=== PATIENT | male | born 1980 | race Caucasian/White ===

== ENCOUNTER 2017-10-31 15:07 | Inpatient (IN) | payer OTHER ==
[2017-10-31] MEDS ORDERED: HALOPERIDOL LACT 5 MG/ML INJ IM ONE (15:42)
[2017-10-31] MEDS ORDERED: LORazepam 2 MG/ML INJ IVP ONE (15:42)
--- NOTE | 2017-10-31 16:03 | EDPHY ---
H & P Stated Complaint: MED EVAL/FAMILY FEELS PSYCH MEDS NOT WORKING/GLORIA Source: Patient, Family - Personal History Current Tetanus/Diphtheria Vaccine: Unsure - Medical/Surgical History Hx Asthma: No Hx Chronic Respiratory Disease: No Hx Diabetes: No Hx Cardiac Disease: No Hx Renal Disease: No Hx Cirrhosis: No Hx Alcoholism: No Hx HIV/AIDS: No Hx Splenectomy or Spleen Trauma: No Other PMH: BIPOLAR - Family History Significant Family History: No pertinent family hx - Social History Smoking Status: Never smoked Alcohol Use: Sober Drug Use: None Time Seen by Provider: 10/31/17 15:34 HPI/ROS: CHIEF COMPLAINT: Psychosis HISTORY OF PRESENT ILLNESS: Patient is a 36-year-old man whose mom and sister in law brought him into the ER under false pretenses. They told him they were going to eat. The patient has a history of bipolar and they report that he has been manic since May. He was asking his if they were under surveillance. His felt unsafe and left him and took the kids. She has since filed for divorce. The patient has not been going on visits to see the kids lately and the called his family. They have been checking on him. Mom states that he was very angry a few days ago at tore door off its hinges and began shaking it. Ppziuc-cu-ggo states that she went over last night and that he kept peaking through the windows and the door but would not acknowledge her or talk to her. They do not think that he is taking his medications although his medications have been refilled. He has not been eating. Today they gave him something to eat if he came with them and then they brought him to the ER. Here he kept asking to leave and was posturing with security. REVIEW OF SYSTEMS: Unable to obtain secondary to condition EXAM: GENERAL: well-nourished and in moderate distress. HEAD: Atraumatic, normocephalic. EYES: Pupils equal round and reactive to light, extraocular movements intact, sclera anicteric, conjunctiva are normal. ENT: Moist mucous membranes. NECK: Normal range of motion, supple. LUNGS: Breath sounds clear to auscultation. No wheezes rales or rhonchi. HEART: Regular rate and rhythm. ABDOMEN: Soft, nontender, normoactive bowel sounds. No guarding, no rebound. No masses appreciated. BACK: No CVA tenderness, no spinal tenderness, step-offs or deformities EXTREMITIES: Normal range of motion, no pitting or edema. No clubbing or cyanosis. NEUROLOGICAL: Cranial nerves II through XII grossly intact. Normal speech, normal gait. 5/5 strength, normal movement in all extremities, normal sensation PSYCH: Angry, aggressive, paranoid see above SKIN: Warm, dry, normal turgor, no visible rashes or lesions. (Antonio Sanchez) Constitutional: Initial Vital Signs Temperature (C) 36.4 C 10/31/17 15:14 Heart Rate 95 10/31/17 15:14 Respiratory Rate 20 10/31/17 15:14 O2 Sat (%) 94 10/31/17 15:14 O2 Delivery Mode Room Air Allergies/Adverse Reactions: No Known Allergies Allergy (Unverified 10/31/17 15:09) Home Medications: Medication Instructions Recorded Gabapentin [Neurontin 100 MG (*)] 100 mg PO TID 11/01/17 Levothyroxine [Synthroid 50 mcg 50 mcg PO DAILY06 11/01/17 (*)] [place] Carbonate [[place] 600 mg PO TID 11/01/17 Carbonate 600 mg cap (*)] Methylphenidate HCl [Ritalin 20mg 20 mg PO QID 11/01/17 (*)] QUEtiapine FUMARATE [Seroquel 50 50 mg PO DAILY 11/01/17 mg (*)] lamoTRIgine [Lamotrigine] 200 mg PO DAILY 11/01/17 Medical Decision Making ED Course/Re-evaluation: 0123AM; patient accepted by Dr. Whitt at [address] [place] [address]. EMTALA filled out. Appropriate transfer will be set up. (Corey Abdalla) 7:00 p.m. the patient is medically cleared. We are awaiting psychiatric evaluation. (Antonio Sanchez) Differential Diagnosis: Partial list of the Differential diagnosis considered include but were not limited to; bipolar, manic, schizoaffective, substance abuse and although unlikely based on the history and physical exam, I also considered head injury, infection. (Antonio Sanchez) - Data Points Laboratory Results: Laboratory Results 10/31/17 16:22 10/31/17 16:22 10/31/17 10/31/17 16:32 16:30 Hemoglobin A1c 5.0 % % (4.0-6.0) Estim Average Glucose 97 mg/dL mg/dL (68-126) AST 37 IU/L IU/L (17-59) ALT 49 IU/L IU/L (21-72) Triglycerides 120 mg/dL mg/dL (40-150) Cholesterol 193 mg/dL mg/dL (140-200) Cholesterol Risk Factr 0.8 (0.2-1.0) LDL Cholesterol, Calc 124 mg/dL H mg/dL (70-100) LDL Risk Factor 1.0 (0.2-1.0) VLDL Cholesterol 24 mg/dL mg/dL (8-25) Non-HDL Cholesterol 148 mg/dL H mg/dL (90-129) HDL Cholesterol 45 mg/dL mg/dL (40-65) LDL/HDL Ratio 2.76 RATIO RATIO (1.00-3.64) Cholesterol/HDL Ratio 4.29 RATIO RATIO (1.00-4.97) TSH 1.250 uIU/mL uIU/mL (0.465-4.680) [place] 0.2 mEq/L L mEq/L (0.6-1.2) Medications Given: Levothyroxine Sodium (Synthroid) 50 mcg PO DAILY06 SUZETTE Stop: 04/30/18 13:29 Last Admin: 11/01/17 14:29 Dose: Not Given Discontinued Medications Haloperidol Lactate (Haldol Injection) 10 mg IM EDNOW ONE Stop: 10/31/17 15:43 Last Admin: 10/31/17 19:03 Dose: Not Given Lorazepam (Ativan Injection) 2 mg IVP EDNOW ONE Stop: 10/31/17 15:43 Last Admin: 10/31/17 19:03 Dose: Not Given Lorazepam (Ativan) 1 mg PO ONCE ONE Stop: 10/31/17 23:00 Last Admin: 10/31/17 23:15 Dose: 1 mg Departure - Departure Disposition: [facility] IP Clinical Impression: Bipolar disorder Qualifiers: Active/Remission status: currently active Current bipolar episode type: manic Current episode severity: severe Psychotic features: with psychotic features Qualified Code(s): F31.2 - Bipolar disorder, current episode manic severe with psychotic features Condition: Fair
[2017-10-31 16:32] LABS: PLATELET COUNT 295 10^3/uL (150-400)
[2017-10-31] MEDS ORDERED: LORazepam 1 MG TAB PO ONE (22:59)
[2017-11-01] MEDS ORDERED: NICOTINE POLACRILEX 2 MG GUM B PRN (02:38)
[2017-11-01] MEDS ORDERED: MAGNESIUM HYDROXIDE 30 ML UDCUP PO PRN (02:38)
[2017-11-01] MEDS ORDERED: LORazepam 0.5 MG TAB PO PRN ×2 (02:38→13:32)
[2017-11-01] MEDS ORDERED: ACETAMINOPHEN 325 MG TAB PO PRN (02:38)
[2017-11-01] MEDS ORDERED: MAG HYDROX/AL HYDROX/SIMETH 30 ML UDCUP PO PRN (02:38)
[2017-11-01] MEDS ORDERED: OLANZapine 5 MG TAB PO PRN ×2 (02:39→13:30)
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
[2017-11-01] MEDS: LEVOTHYROXINE 50 MCG TAB PO SCH ×2 (14:25→14:29)
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
[2017-11-01] MEDS: RISPERIDONE 1 MG ODT TAB SL SCH (19:46)
[2017-11-02] MEDS: RISPERIDONE 1 MG ODT TAB SL SCH ×2 (08:03→20:32)
[2017-11-02] MEDS: LEVOTHYROXINE 50 MCG TAB PO SCH (09:53)
--- NOTE | 2017-11-02 14:07 | SOAPPROG ---
SOAP Progress Note Assessment/Plan: Assessment: 36 yo man, recently from his and 3 kids, with prior dx of bipolar disorder, brought into ED by [facility] d/t non-compliance with meds and worsening paranoia, labile moods and aggressive behavior. Plan: 11/02/17 14:02 1. Patient has agreed to take Risperdal 1mg BID SL while in hospital. 2. Patient presents with thought blocking, internal preoccupation and paranoid delusions. 3. No evidence of pillo or depression. 4. [facility] expires tomorrow at 1542. Subjective: Met with patient, reviewed chart and d/w staff. Patient is standing in his room staring out window. MD is accompanied by CC, Luci, and RN, Megan. Patient makes intermittent eye contact, but for most of the interview is looking in different direction away from MD, CADE and RN. Patient walks over and lies down on bed and stares straight ahead. He sometimes closes his eyes. He has thought blocking and response latency. He only answers "Yes" or "No" to most questions. MD asks about racing thoughts, internal stimuli or other distractions that might be keeping patient from responding to MD's questions, but patient denies and says "no" he doesn't have any of those problems. He denies any SI/HI, and denies AH/VH, but is extremely disorganized and unable to form coherent thoughts. Objective: Vital Signs Temp Pulse Resp BP Pulse Ox 36.6 C 83 14 132/86 H 98 11/01/17 02:59 11/01/17 02:59 11/01/17 02:59 11/01/17 02:59 11/01/17 02:59 MSE: Affect: Constricted Mood: "OK" TP: Disorganized, paucity of speech, thought blocking, response latency TC: Denies any SI/HI, AH/VH, still has some paranoia and is very guarded Insight/Judgment: Impaired - Time Spent With Patient Time Spent With Patient: 20" - Pending Discharge Pending Discharge Within 24 Hours: No Pending Discharge Within 48 Hours: No ICD10 Worksheet Patient Problems: Problems Problem Status Onset Bipolar disorder Acute
[2017-11-03] MEDS: LEVOTHYROXINE 50 MCG TAB PO SCH (09:07)
[2017-11-03] MEDS: RISPERIDONE 1 MG ODT TAB SL SCH (09:09)
--- NOTE | 2017-11-03 14:34 | SOAPPROG ---
SOAP Progress Note Assessment/Plan: Assessment: 36 yo man, recently from his and 3 kids, with prior dx of bipolar disorder, brought into ED by [facility] d/t non-compliance with meds and worsening paranoia, labile moods and aggressive behavior. Plan: 11/02/17 14:02 1. Patient has agreed to take Risperdal 1mg BID SL while in hospital. 2. Patient presents with thought blocking, internal preoccupation and paranoid delusions. 3. No evidence of pillo or depression. 4. [facility] expires tomorrow at 1542. 11/03/17 14:30 1. Patient still guarded, paranoid, evidence of thought blocking. 2. Patient did come out of room to eat meals today which was less isolative than yesterday. 3. No evidence of pillo or depression. Denies any SI/HI. 4. Place on [facility] d/t grave disability from psychosis. 5. Increase Risperdal to 1mg SL QAM and 2mg SL HS. 6. CC spoke with patient's [facility]. She says patient has not been taking meds since June,. It's unclear whether or not he's seen Dr. Levy. [facility] also says patient stopped taking [place] last year d/t thyroid issues. Patient has been prescribed levothyroxine but likely non-compliant. TSH was WNL on admission. Subjective: Met with patient, reviewed chart and d/w staff. Patient is less isolative today , came out of his room for meals. He is still very guarded and paranoid. Has evidence of thought blocking and response latency. Objective: Vital Signs Temp Pulse Resp BP Pulse Ox 36.6 C 83 14 132/86 H 98 11/01/17 02:59 11/01/17 02:59 11/01/17 02:59 11/01/17 02:59 11/01/17 02:59 MSE: Affect: Constricted Mood: "OK" TP: Paucity of speech, only answer "yes" or "no" TC: Denies any SI/HI, thought blocking, paranoid delusions Insight/ Judgment: Impaired - Time Spent With Patient Time Spent With Patient: 15" - Pending Discharge Pending Discharge Within 24 Hours: No Pending Discharge Within 48 Hours: No ICD10 Worksheet Patient Problems: Problems Problem Status Onset Bipolar disorder Acute
[2017-11-03] MEDS ORDERED: RISPERIDONE 2 MG ODT TAB SL SCH (21:00)
[2017-11-04] MEDS ORDERED: RISPERIDONE 2 MG ODT TAB SL SCH (08:33)
--- NOTE | 2017-11-04 08:47 | SOAPPROG ---
SOAP Progress Note Assessment/Plan: Assessment: Bipolar Disorder with psychotic features versus Schizoaffective Disorder bipolar type Catatonia Patient is partially mute and has been quiet and isolative on the unit. Appears disorganized and needs prompts for meals and hygiene. Patient was agitated, irritable, paranoid, and had poor self-care and impaired functioning prior to admission. Plan: Short Term Certification for grave disability Monitor PO fluid intake, % meals eaten Check AM BMP and CK Reduce Risperdal 1mg QHS Start Ativan 1mg BID Restart [place] ER 450mg QHS Left voicemail with psychiatrist Dr. Levy [phone] 11/04/17 08:45 Subjective: CC: "I'm fine" "I want to go home" "nervous" Patient is lying in bed staring at wall. Non-verbal to most questions. Brief response to some questions. Unable to explain events leading to hospitalization or describe mood. No response to questions about paranoia, AH, SI, or HI. Denies feeling stiff or tired. Objective: Vital Signs Temp Pulse Resp BP Pulse Ox 36.6 C 83 14 132/86 H 98 11/01/17 02:59 11/01/17 02:59 11/01/17 02:59 11/01/17 02:59 11/01/17 02:59 Alert WM lying in bed staring at well. Mute/non-verbal to most questions. Brief statements "I'm fine" "I want to go home" "nervous". Appears disorganized with internal preoccupation. Unable to assess thought content. Unable to assess for AH, paranoia, SI or HI. Insight poor. Staff report patient slept 9 hours. Isolative to room, minimal speech, able to attend and eat some meals. Reviewed admission evaluation and progress notes from Dr. Junior. Note from indicates patient was last stable on Gilmore 600mg, Risperdal 1mg , Lamictal while in an IOP program in 2016. Notes indicate more recently patient on Lamictal, Gilmore, and Seroquel 50mg. Notes indicate patient has a history of a prior psychiatric hospitalization in [place] for overdosing on medication. History of Bipolar Disorder (alternating pillo and depression) with episodic paranoid delusions regarding camera surveillence, computer/phones being bugged, isolating to home with poor self care and inability to work; history of agitated yelling and ripping door off hinges and erratic behavior. Due to severe symptoms and children moved out of the home, finalized September 2017. Mother in area is a support. - Time Spent With Patient Time Spent With Patient: 15 minutes - Pending Discharge Pending Discharge Within 24 Hours: No Pending Discharge Within 48 Hours: No ICD10 Worksheet Patient Problems: Problems Problem Status Onset Catatonia Acute Psychotic disorder Acute Bipolar disorder Acute
[2017-11-04] MEDS ORDERED: RISPERIDONE 1 MG ODT TAB SL SCH (09:00)
[2017-11-04] MEDS: LORazepam 1 MG TAB PO SCH ×2 (09:26→20:47)
[2017-11-04] MEDS: LEVOTHYROXINE 50 MCG TAB PO SCH (09:26)
[2017-11-04] MEDS ORDERED: LITHIUM CARBONATE ER 450 MG TAB PO SCH (21:00)
[2017-11-04] MEDS ORDERED: RISPERIDONE 1 MG ODT TAB PO SCH (21:00)
[2017-11-05] MEDS: LORazepam 1 MG TAB PO SCH ×2 (08:43→19:14)
[2017-11-05] MEDS: LEVOTHYROXINE 50 MCG TAB PO SCH (09:36)
--- NOTE | 2017-11-05 11:51 | SOAPPROG ---
SOAP Progress Note Assessment/Plan: Assessment: Bipolar Disorder with psychotic features versus Schizoaffective Disorder bipolar type Catatonia Patient is partially mute and has been quiet and isolative on the unit. Appears disorganized and needs prompts for meals and hygiene. Patient was agitated, irritable, briefly paranoid, and had poor self-care and impaired functioning prior to admission. This AM patient is somewhat more responsive to questions but refused AM blood draw. Plan: Short Term Certification for grave disability Monitor PO fluid intake, % meals eaten Discontinue Risperdal Continue Ativan 1mg BID, started 11/04 Increase [place] 450mg BID Check BMP, CK, [place] level on 11/0711/05/17 11:48 Subjective: CC: "I want to go home" Patient unable to explain events that led to hospitalization. No answer to most questions. Briefly reports he is not suicidal or hearing voices. Unable to explain why he refused AM blood draw. Reports Objective: Vital Signs Temp Pulse Resp BP Pulse Ox 36.9 C 82 16 116/65 94 11/04/17 21:09 11/05/17 08:00 11/05/17 08:00 11/05/17 08:00 11/05/17 08:00 11/04/17 11/05/17 11/06/17 05:59 05:59 05:59 Intake Total 620 Balance 620 WM sitting in bed. Affect: appears preoccupied and briefly anxious with questions. No answer to some questions. Brief statements to some questions. Endorses feeling anxious and depressed but unable to explain or give detail. Denies SI or HI. Denies AH. Insight poor. Staff report patient ate 50% of breakfast after sleeping 8 hours. Isolating to room. Minimal speech with staff. Ambulates to meals but doesn't attend any groups. - Time Spent With Patient Time Spent With Patient: 15 minutes - Pending Discharge Pending Discharge Within 24 Hours: No Pending Discharge Within 48 Hours: No ICD10 Worksheet Patient Problems: Problems Problem Status Onset Catatonia Acute Psychotic disorder Acute Bipolar disorder Acute
[2017-11-05] MEDS: LITHIUM CARBONATE ER 450 MG TAB PO SCH (19:14)
[2017-11-06] MEDS: LORazepam 1 MG TAB PO SCH ×3 (08:22→21:40)
[2017-11-06] MEDS: LITHIUM CARBONATE ER 450 MG TAB PO SCH ×2 (08:22→21:40)
--- NOTE | 2017-11-06 09:17 | SOAPPROG ---
SOAP Progress Note Assessment/Plan: Assessment: Bipolar Disorder with psychotic features Catatonia Patient continues to appear internally preoccupied and/or catatonic but is able to talk more today. Patient is irritable, guarded, and unwilling to discuss diagnosis and treatment plan and walks away from interview. Patient on unit appears gravely disabled, needs prompts to attend meals, mostly non-verbal and not attending any groups or participating in treatment planning, but able to eat and drink. Patient refused blood draw yesterday. Plan: Short Term Certification for grave disability Monitor PO fluid intake, % meals eaten Increase Ativan 1mg TID, started 11/04 Continue [place] 450mg BID Consider adding antipsychotic if more verbal and remission of catatonia symptoms Check BMP, CK, [place] level on 11/07 Education about bipolar disorder, need to assess patients thought process and mood stability, and importance of treatment and discharge planning and blood draw. 11/06/17 09:19 Subjective: CC: "I want to go home" Patient unable to explain why he is in the hospital. Reports wanting to leave unit. Refuses or unable to answer most questions. Endorses symptoms of bipolar disorder in the past including depression, suicidal thoughts, low energy , hopelessness alternating with elevated energy, reduced sleep, concurrent with irritability. Denies paranoia or AH. Denies SI or HI. Unwilling to discuss treatment plan on unit and discharge planning. Refuses to discuss medication risks/benefits or importance of AM blood draw. Objective: Vital Signs Temp Pulse Resp BP Pulse Ox 36.9 C 71 14 119/72 94 11/04/17 21:09 11/05/17 19:22 11/05/17 19:22 11/05/17 19:22 11/05/17 19:22 11/05/17 11/06/17 11/07/17 05:59 05:59 05:59 Intake Total 620 900 Balance 620 900 Alert WM, well appearing. No tremors. Sitting quietly staring at wall. Brief statements with interview. Affect preoccupied, then irritable. Refuses or unable to answer some questions, at times reports "i don't want to talk about it.' Denies SI or HI or AH. Disorganized behavior. Insight poor. Staff report patient slept 7 hours, ate 75% of meals. Quiet, isolative to room , not attending groups, needs prompts to attend meals. - Time Spent With Patient Time Spent With Patient: 15 minutes - Pending Discharge Pending Discharge Within 24 Hours: No Pending Discharge Within 48 Hours: No ICD10 Worksheet Patient Problems: Problems Problem Status Onset Bipolar disorder Acute Catatonia Acute Psychotic disorder Acute
[2017-11-06] MEDS: LEVOTHYROXINE 50 MCG TAB PO SCH (10:56)
[2017-11-07] MEDS: LORazepam 1 MG TAB PO SCH ×2 (09:04→20:31)
[2017-11-07] MEDS: LITHIUM CARBONATE ER 450 MG TAB PO SCH (09:04)
[2017-11-07] MEDS: LEVOTHYROXINE 50 MCG TAB PO SCH (09:04)
--- NOTE | 2017-11-07 10:47 | SOAPPROG ---
SOAP Progress Note Assessment/Plan: Assessment: Bipolar Disorder, depressed with psychotic features Catatonia Patient continues to appear internally preoccupied and/or catatonic but is able to talk full sentences. Patient has inconsistent PO intake and is at risk for dehydration and lithium toxicity. Patient is irritable, guarded, and unwilling to discuss diagnosis and treatment plan. Patient on unit appears gravely disabled, needs prompts to attend meals, mostly non-verbal and isolative. Patient appears depressed and more tired and sedated this AM. Nurses unable to draw blood test. Plan: Short Term Certification for grave disability Monitor PO fluid intake, % meals eaten, behavior Reduce Ativan 1mg BID, started 11/04 Continue [place] 450mg BID, started 11/04 Consider adding antipsychotic if more verbal and remission of catatonia symptoms Called report to Dr. Garcia in ER requesting evaluation for dehydration and lithium toxicity and to assist with blood draw 11/07/17 10:48 Subjective: CC: "I want to go home" Patient unable to explain symptoms or problems that led to hospitalization. Unable to explain support network or what he would do if he was not in the hospital. Denies paranoia or AH. Denies feeling depressed or anxious. Unable to explain why he stays in his room most of the day and only leaves room for meals. Agreeable to have his mother visit. Objective: Vital Signs Temp Pulse Resp BP Pulse Ox 36.8 C 78 16 124/68 H 95 11/06/17 20:00 11/06/17 20:00 11/06/17 20:00 11/06/17 20:00 11/06/17 20:00 11/06/17 11/07/17 11/08/17 05:59 05:59 05:59 Intake Total 900 600 Balance 900 600 WM lying in bed. Speech soft few words. Mood 'I want to go home.' Affect restricted, preoccupied, briefly irritable. Thoughts briefly organized with minimal information. Denies SI or HI or AH or paranoia. Poor insight. Staff report patient ate 75% dinner and 50% lunch but only 600cc of fluid. Attended 1/5 groups but didn't speak. - Time Spent With Patient Time Spent With Patient: 20 minutes - Pending Discharge Pending Discharge Within 24 Hours: No Pending Discharge Within 48 Hours: No ICD10 Worksheet Patient Problems: Problems Problem Status Onset Bipolar disorder Acute Catatonia Acute Psychotic disorder Acute
[2017-11-07] MEDS: LITHIUM CARBONATE 300 MG CAP PO SCH (20:31)
[2017-11-08] MEDS: LORazepam 1 MG TAB PO SCH ×2 (07:40→20:52)
[2017-11-08] MEDS: LITHIUM CARBONATE 600 MG CAP PO SCH (07:40)
[2017-11-08] MEDS: LEVOTHYROXINE 50 MCG TAB PO SCH (08:43)
[2017-11-08] MEDS ORDERED: LITHIUM CARBONATE 300 MG CAP PO SCH (09:00)
[2017-11-08] MEDS ORDERED: RISPERIDONE 1 MG ODT TAB SL PRN (09:28)
--- NOTE | 2017-11-08 11:00 | SOAPPROG ---
SOAP Progress Note Assessment/Plan: Assessment: Bipolar Disorder, depressed with psychotic and catatonic features Patient continues to appear internally preoccupied and/or catatonic but is able to talk full sentences. Patient has inconsistent PO intake and is at risk for dehydration and lithium toxicity. Patient is briefly irritable, appears dysphoric at times, but much more talkative with better insight and less guarded. Denies psychotic symptoms, but continues to need prompts for meals and hasn't been able to tolerate any groups over the past 24hours. Plan: Short Term Certification for grave disability Monitor PO fluid intake, % meals eaten, behavior on unit, irritability. Continue Ativan 1mg BID Continue [place] 600mg QAM and 900mg QPM, increased 11/07 Restart Lamictal 25mg daily. Discussed risk of life-threatening rash Check Bromide level and BMP on Saturday 11/11 Requested CC outreach family with request to visit over weekend to assess patients level of irritability as well as insight into illness and willingness to engage in treatment after discharge, with family meeting on Saturday 11/1111/08/17 11:04 Subjective: CC: "I want to go home" Patient reports prior to admission he was prescribed Lamictal and Bromide but admits to medication non-compliance. Reports when taking these medications having improved functioning. Denies report of paranoia, agitation, ripping door off hinges, and having manic agitation prior to admission. Reports benefit from Bromide, unable to explain in detail, willing to continue taking and restart Lamictal. Reports he is willing to have mother visit unit and attend a family meeting but does not want to stay with her after discharge. Agrees to follow up with Dr. Levy after discharge. Denies feeling tired or confused or having diarrhea or nausea. Objective: Vital Signs Temp Pulse Resp BP Pulse Ox 36.3 C 65 16 116/73 96 11/07/17 20:00 11/07/17 20:00 11/07/17 20:00 11/07/17 20:00 11/07/17 20:00 11/07/17 11/08/17 11/09/17 05:59 05:59 05:59 Intake Total 600 1000 Balance 600 1000 Staff report patient slept 8.5 hours. Ate 100% dinner but no PO fluid intake after getting IVF in ER. Li 0.3 (16hours after PM Li), Na 143, K 4.9, Cr 1.1, glucose 62, Ca 9.9, CK 24, CBC WNL. Alert WM. better eye contact. Speech RRR. Less guarded. Briefly irritable affect, dysphoric at times but better eye contact. Thoughts more organized with multiple sentence responses to questions. Denies SI or HI or AH or paranoia. Memory poor regarding recent events. Improved insight. - Time Spent With Patient Time Spent With Patient: 20 minutes - Pending Discharge Pending Discharge Within 24 Hours: No Pending Discharge Within 48 Hours: No ICD10 Worksheet Patient Problems: Problems Problem Status Onset Catatonia Acute Psychotic disorder Acute Bipolar disorder Acute
[2017-11-08] MEDS: LITHIUM CARBONATE 300 MG CAP PO SCH (20:52)
[2017-11-08] MEDS: lamoTRIgine 25 MG TAB PO SCH (20:54)
[2017-11-09] MEDS: LITHIUM CARBONATE 600 MG CAP PO SCH (08:24)
[2017-11-09] MEDS: LORazepam 1 MG TAB PO SCH ×2 (08:24→20:36)
[2017-11-09] MEDS: LEVOTHYROXINE 50 MCG TAB PO SCH (08:24)
--- NOTE | 2017-11-09 15:31 | SOAPPROG ---
SOAP Progress Note Assessment/Plan: Assessment: 36 yo man, recently from his and 3 kids, with prior dx of bipolar disorder, brought into ED by MOC d/t non-compliance with meds and worsening paranoia, labile moods and aggressive behavior. Plan: 11/09/17 15:22 1. reviewed chart and collateral information for second opinion regarding diagnosis and treatment. Patient was dx by Dr. Levy in [place] with Bipolar Disorder in 2017. However, this MD thinks a dx of Schizophrenia is more likely. There are several reasons why patient's behavior in past is better accounted for by explanations other than bipolar disorder. I will offer a few of them here organized by symptoms: LACK OF SLEEP, INCREASED ACTIVITY AND PRESSURED SPEECH: - & MOC report that patient has often had "trouble sleeping" over past 4-5 years. However, they report these episodes will typically last < 3 days and often involve patient getting "little sleep" or waking up in middle of night and not being able to go back to sleep. They do not report patient getting less than 4 hrs of sleep a night for more than 4 nights in row, which is required for diagnosis of pillo. -MOC told CC on 11/09/17 that patient would frequently wake up "in the middle of night" and was observed "vacuuming house" or "doing laundry." Of note, patient would not engage in increased goal-directed activity at any other time of day, and these activities did not interfere with his ability to go to sleep, they only occurred after he woke up and could not return to sleep. This is an important distinction when addressing whether behavior meets criteria for pillo or not. -MD wonders if there are other explanations for why patient may not be sleeping other than pillo. 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 She reports it was a "high stress job where he typically worked 6am-6pm and often on weekends." also reports he started seeing a psychiatrist for first time and "was prescribed Adderall to help him focus." reports it was during this time that she noticed a change in his personality. She notes he was "talking at me without pause" and "talking about big plans"). Importantly, she mentions he was "drinking most nights and taking Adderall in excess of what he was prescribed." The most likely explanation for these symptoms (lack of sleep, pressured speech, grandiose thoughts and personality changes) is combination of work-related stress, amphetamine abuse, alcohol abuse and sleep deprivation. These are not isolated incidents as patient has continued to use alcohol and prescription stimulants until as recently as late 2017. MOC reports alcohol use continued to present and patient was prescribed Ritalin by Dr. Levy in 2017 for focus/attention, even after diagnosing patient with Bipolar Disorder. NEGATIVE AFFECTIVE SYMPTOMS AND PARANOID DELUSIONS: -The most frequent and disruptive symptoms Wyatt has experienced in past 5-6 years according to both his and mother are paranoid delusions. This started in 2013 and has continued through this admission. reports patient thinking his phone was being tapped and conversations were being recorded. He also thought he was being observed by hidden cameras of from nearby apartments. and mother both report patient frequently closing blinds and shutting doors in an attempt to avoid surveillance. reports patient became increasingly paranoid in late April 2017. He asked is she was "part of the surveillance effort." He "started closing curtains in his office and stopped keeping his phone on him," according to . Around this time, reports, Dr. Levy thought his "bipolar was in remission." The persistent nature of these paranoid delusions over 5-6 years are more consistent with a schizophreniform diagnosis rather than a bipolar or schizoaffective disorder. Coupled with the marked negative affect reported by and MOC, this MD is more inclined to see the patient's problem as chronic psychosis rather than mood disorder with psychotic features. - and MOC both remark on patient's "change of personality" and difficulty with social interactions. notes that patient had difficulty relating to his children and often presented as "intolerant" and a "disciplinarian." notes patient "was not able to be in our kid's presence for longer than a few minutes" and that he "stopped providing any care for them or participating in their bedtimes." notes that patient's behavior also changed towards her. She says he was "lacking any empathy" and became "increasingly aggressive and unapologetic." He was "going out to dinner" alone and "started drinking again." MOC told CC on 11/09/17 that there was a pronounced change in patient's personality over the past several years. She describes patient as "non- communicative" and "very withdrawn." She notes that he would isolate and seemed to withdraw into his own world. While patients with bipolar disorder often act in uncharacteristic ways, they tend to be more reckless and outgoing, not socially isolated and blunted. These symptoms are more consistent with negative affect associated with psychotic disorders. 2. Based on review of records and collateral information from MOC on 11/09/17 and 's lengthy written report, this MD thinks a dx of schizophrenia is better supported by the available evidence. The and MOC are both confused by the patient's lack of progress. They feel that even after tx in hospital in May 2017 and with outpatient tx from Dr. Levy since 2015, that patient has "not been able to sustain stability for longer than around six months." notes that when patient came home from hospital in 05/31 his demeanor and behavior "abruptly changed" within a "few hours" of discharge. One possible explanation is that patient was not treated with a sufficiently therapeutic dose of antipsychotic. He has been on Antler, Lamictal and Ritalin since 2016. Dr. Levy has prescribed Risperdal 1mg HS and more recently Seroquel 50mg at [facility] , neither of which are adequate doses to treat schizophrenia. The Adderall and Ritalin which patient has taken since 2012, often while drinking large amounts of alcohol, is also likely to exacerbate latent psychosis and worsen irritability and aggression. This MD would suggest more aggressive treatment for psychosis and less medication for bipolar pillo. It's very difficult to distinguish between schizophrenia, schizoaffective disorder and bipolar with psychotic features. The best any clinician can do is review the predominant symptoms, look for alternative explanations where appropriate (external stressors, situational triggers, drug use), and evaluate why certain treatment might have failed. Based on the evidence, this MD's best guess is that work- related stress and abuse of prescription drugs and alcohol led to mood instability and low-level paranoia in [id number]. Patient's suicide attempt by OD in [place] in 2013 is also probably related to conflict and perceived failures at work combined with alcohol dependence and prescription drug abuse. Given this was an isolated attempt and neither nor mother reports similar episodes of depression, it doesn't seem a part of bipolar or any other mood related chronic condition. The more serious and persistent problem is not with pillo or depression, but with ongoing negative affect, internal preoccupation, disorganized thought process and active paranoia. 3. As a result of this second opinion, my recommendation would be do reduce/ discontinue Antler and Lamictal and pursue aggressive treatment with antipsychotic medications. Risperdal has been discontinued during this hospitalization due to concerns for catatonia. There is no evidence of catatonia currently, and neither nor MOC report any when he has been on Risperdal or Seroquel in past. 4. MOC did come to visit today, but patient refused to meet with her. MOC did meet with CC and provide some collateral information which is referenced above. She has agreed to return on Saturday for family meeting. She also reports the home where patient is living is not clean, but not filthy either. She says there is little food in the house, but she thinks patient was eating out. She reports 9 prescriptions bottles at home that are mostly full. She says there are some pills missing, but not many. 5. Patient was scheduled to have OT evaluation today, but staff did not feel patient was trustworthy to leave unit to participate in kitchen-based activities. Staff's concerns were that patient would try to elope since he has frequently commented on his desire to get out of the hospital. MD agreed patient should stay on unit for weekend and reassess on Saturday. Subjective: Met with patient, reviewed chart and d/w staff. MOC did come to visit today, but patient refused to meet with her. MOC did meet with CC and provide some collateral information which is referenced above. She has agreed to return on Saturday for family meeting. She also reports the home where patient is living is not clean, but not filthy either. She says there is little food in the house, but she thinks patient was eating out. She reports 9 prescriptions bottles at home that are mostly full. She says there are some pills missing, but not many. Patient was scheduled to have OT evaluation today, but staff did not feel patient was trustworthy to leave unit to participate in kitchen-based activities. Staff's concerns were that patient would try to elope since he has frequently commented on his desire to get out of the hospital. MD agreed patient should stay on unit for weekend and reassess on Saturday. As a result of this second opinion, my recommendation would be do reduce/discontinue Antler and Lamictal and pursue aggressive treatment with antipsychotic medications. Risperdal has been discontinued during this hospitalization due to concerns for catatonia. There is no evidence of catatonia currently, and neither nor MOC report any when he has been on Risperdal or Seroquel in past. Objective: Vital Signs Temp Pulse Resp BP Pulse Ox 36.9 C 69 12 120/61 97 11/08/17 18:22 11/09/17 08:00 11/09/17 08:00 11/09/17 08:00 11/09/17 08:00 11/08/17 11/09/17 11/10/17 05:59 05:59 05:59 Intake Total 1000 2120 Balance 1000 2120 MSE: Affect: Flat Mood: "OK" TP: Disorganized, confused at times TC: Denies any hallucinations, still appears guarded and paranoid Insight/Judgment: Poor - Time Spent With Patient Time Spent With Patient: 15" - Pending Discharge Pending Discharge Within 24 Hours: No Pending Discharge Within 48 Hours: No ICD10 Worksheet Patient Problems: Problems Problem Status Onset Catatonia Acute Psychotic disorder Acute Bipolar disorder Acute
[2017-11-09] MEDS: lamoTRIgine 25 MG TAB PO SCH (20:36)
[2017-11-09] MEDS: LITHIUM CARBONATE 300 MG CAP PO SCH (20:36)
[2017-11-10] MEDS: LITHIUM CARBONATE 600 MG CAP PO SCH (08:21)
[2017-11-10] MEDS: LORazepam 1 MG TAB PO SCH ×2 (08:21→20:57)
[2017-11-10] MEDS: LEVOTHYROXINE 50 MCG TAB PO SCH (08:21)
--- NOTE | 2017-11-10 17:28 | SOAPPROG ---
SOAP Progress Note Assessment/Plan: Assessment: 36 yo man, recently from his and 3 kids, with prior dx of bipolar disorder, brought into ED by MOC d/t non-compliance with meds and worsening paranoia, labile moods and aggressive behavior. Plan: 11/09/17 15:22 1. reviewed chart and collateral information for second opinion regarding diagnosis and treatment. Patient was dx by Dr. Levy in [place] with Bipolar Disorder in 2017. However, this MD thinks a dx of Schizophrenia is more likely. There are several reasons why patient's behavior in past is better accounted for by explanations other than bipolar disorder. I will offer a few of them here organized by symptoms: LACK OF SLEEP, INCREASED ACTIVITY AND PRESSURED SPEECH: - & MOC report that patient has often had "trouble sleeping" over past 4-5 years. However, they report these episodes will typically last < 3 days and often involve patient getting "little sleep" or waking up in middle of night and not being able to go back to sleep. They do not report patient getting less than 4 hrs of sleep a night for more than 4 nights in row, which is required for diagnosis of pillo. -MOC told CC on 11/09/17 that patient would frequently wake up "in the middle of night" and was observed "vacuuming house" or "doing laundry." Of note, patient would not engage in increased goal-directed activity at any other time of day, and these activities did not interfere with his ability to go to sleep, they only occurred after he woke up and could not return to sleep. This is an important distinction when addressing whether behavior meets criteria for pillo or not. -MD wonders if there are other explanations for why patient may not be sleeping other than pillo. 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 She reports it was a "high stress job where he typically worked 6am-6pm and often on weekends." also reports he started seeing a psychiatrist for first time and "was prescribed Adderall to help him focus." reports it was during this time that she noticed a change in his personality. She notes he was "talking at me without pause" and "talking about big plans"). Importantly, she mentions he was "drinking most nights and taking Adderall in excess of what he was prescribed." The most likely explanation for these symptoms (lack of sleep, pressured speech, grandiose thoughts and personality changes) is combination of work-related stress, amphetamine abuse, alcohol abuse and sleep deprivation. These are not isolated incidents as patient has continued to use alcohol and prescription stimulants until as recently as late 2017. MOC reports alcohol use continued to present and patient was prescribed Ritalin by Dr. Levy in 2017 for focus/attention, even after diagnosing patient with Bipolar Disorder. NEGATIVE AFFECTIVE SYMPTOMS AND PARANOID DELUSIONS: -The most frequent and disruptive symptoms Wyatt has experienced in past 5-6 years according to both his and mother are paranoid delusions. This started in 2013 and has continued through this admission. reports patient thinking his phone was being tapped and conversations were being recorded. He also thought he was being observed by hidden cameras of from nearby apartments. and mother both report patient frequently closing blinds and shutting doors in an attempt to avoid surveillance. reports patient became increasingly paranoid in late April 2017. He asked is she was "part of the surveillance effort." He "started closing curtains in his office and stopped keeping his phone on him," according to . Around this time, reports, Dr. Levy thought his "bipolar was in remission." The persistent nature of these paranoid delusions over 5-6 years are more consistent with a schizophreniform diagnosis rather than a bipolar or schizoaffective disorder. Coupled with the marked negative affect reported by and MOC, this MD is more inclined to see the patient's problem as chronic psychosis rather than mood disorder with psychotic features. - and MOC both remark on patient's "change of personality" and difficulty with social interactions. notes that patient had difficulty relating to his children and often presented as "intolerant" and a "disciplinarian." notes patient "was not able to be in our kid's presence for longer than a few minutes" and that he "stopped providing any care for them or participating in their bedtimes." notes that patient's behavior also changed towards her. She says he was "lacking any empathy" and became "increasingly aggressive and unapologetic." He was "going out to dinner" alone and "started drinking again." MOC told CC on 11/09/17 that there was a pronounced change in patient's personality over the past several years. She describes patient as "non- communicative" and "very withdrawn." She notes that he would isolate and seemed to withdraw into his own world. While patients with bipolar disorder often act in uncharacteristic ways, they tend to be more reckless and outgoing, not socially isolated and blunted. These symptoms are more consistent with negative affect associated with psychotic disorders. 2. Based on review of records and collateral information from MOC on 11/09/17 and 's lengthy written report, this MD thinks a dx of schizophrenia is better supported by the available evidence. The and MOC are both confused by the patient's lack of progress. They feel that even after tx in hospital in May 2017 and with outpatient tx from Dr. Levy since 2015, that patient has "not been able to sustain stability for longer than around six months." notes that when patient came home from hospital in 05/31 his demeanor and behavior "abruptly changed" within a "few hours" of discharge. One possible explanation is that patient was not treated with a sufficiently therapeutic dose of antipsychotic. He has been on Juarez, Lamictal and Ritalin since 2016. Dr. Levy has prescribed Risperdal 1mg HS and more recently Seroquel 50mg at [facility] , neither of which are adequate doses to treat schizophrenia. The Adderall and Ritalin which patient has taken since 2012, often while drinking large amounts of alcohol, is also likely to exacerbate latent psychosis and worsen irritability and aggression. This MD would suggest more aggressive treatment for psychosis and less medication for bipolar pillo. It's very difficult to distinguish between schizophrenia, schizoaffective disorder and bipolar with psychotic features. The best any clinician can do is review the predominant symptoms, look for alternative explanations where appropriate (external stressors, situational triggers, drug use), and evaluate why certain treatment might have failed. Based on the evidence, this MD's best guess is that work- related stress and abuse of prescription drugs and alcohol led to mood instability and low-level paranoia in [id number]. Patient's suicide attempt by OD in [place] in 2013 is also probably related to conflict and perceived failures at work combined with alcohol dependence and prescription drug abuse. Given this was an isolated attempt and neither nor mother reports similar episodes of depression, it doesn't seem a part of bipolar or any other mood related chronic condition. The more serious and persistent problem is not with pillo or depression, but with ongoing negative affect, internal preoccupation, disorganized thought process and active paranoia. 3. As a result of this second opinion, my recommendation would be do reduce/ discontinue Juarez and Lamictal and pursue aggressive treatment with antipsychotic medications. Risperdal has been discontinued during this hospitalization due to concerns for catatonia. There is no evidence of catatonia currently, and neither nor MOC report any when he has been on Risperdal or Seroquel in past. 4. MOC did come to visit today, but patient refused to meet with her. MOC did meet with CC and provide some collateral information which is referenced above. She has agreed to return on Saturday for family meeting. She also reports the home where patient is living is not clean, but not filthy either. She says there is little food in the house, but she thinks patient was eating out. She reports 9 prescriptions bottles at home that are mostly full. She says there are some pills missing, but not many. 5. Patient was scheduled to have OT evaluation today, but staff did not feel patient was trustworthy to leave unit to participate in kitchen-based activities. Staff's concerns were that patient would try to elope since he has frequently commented on his desire to get out of the hospital. MD agreed patient should stay on unit for weekend and reassess on Saturday. 11/10/17 17:23 1. No change. Patient still presents as paranoid, disorganized, impaired reality testing. No evidence of depression or pillo. 2. OT evaluated patient's ability to fill a pill box. Per OT, he needed " several prompts." 3. Family meeting planned for Saturday with [facility]. Subjective: Met with patient, reviewed chart and d/w staff. Patient continues to isolate in his room all day. He does not attend groups or participate in milieu activities. He has no motivation for treatment and little insight into is illness. He says, "I have no problems...I just want to go home," which is the same thing he told MD last weekend when he was admitted. OT said patient needed multiple prompts to complete task of filling his pill box. [facility] also reports that patient was not keeping his home clean and had very few groceries in the house. It's unlikely he can adequately take care of himself in his current mental state. He denies any SI/HI. Objective: Vital Signs Temp Pulse Resp BP Pulse Ox 36.6 C 80 16 123/77 H 94 11/10/17 06:51 11/10/17 06:51 11/10/17 06:51 11/10/17 06:51 11/10/17 06:51 11/09/17 11/10/17 11/11/17 05:59 05:59 05:59 Intake Total 2120 480 Balance 2120 480 MSE: Affect: Flat Mood: "I'm fine" TP: Disorganized, illogical TC: Paranoid, delusional, denies SI/HI Insight/Judgment: Impaired - Time Spent With Patient Time Spent With Patient: 15" - Pending Discharge Pending Discharge Within 24 Hours: No Pending Discharge Within 48 Hours: No ICD10 Worksheet Patient Problems: Problems Problem Status Onset Catatonia Acute Psychotic disorder Acute Bipolar disorder Acute
[2017-11-10] MEDS: LITHIUM CARBONATE 300 MG CAP PO SCH (17:52)
[2017-11-10] MEDS: lamoTRIgine 25 MG TAB PO SCH (20:57)
[2017-11-11] MEDS: LORazepam 0.5 MG TAB PO PRN (04:57)
[2017-11-11] MEDS ORDERED: OLANZapine DISINTEGR 5 MG TAB PO PRN (08:03)
--- NOTE | 2017-11-11 08:08 | SOAPPROG ---
SOAP Progress Note Assessment/Plan: Assessment: Schizoaffective Disorder Over weekend, patient had apathy with poor hygiene, needed prompts for meals, had mild disorganization during OT evaluation, had irritability and paranoia toward staff and refused to meet with mother to review discharge planning. Plan: Short Term Certification for grave disability Monitor PO fluid intake, % meals eaten, behavior on unit, irritability. Discontinue Lamictal Continue [place] 600mg QAM and 900mg QHS, level pending Change Ativan 1mg PRN Anxiety/insomnia Start Olanzapine ODT 5mg SL BID Provided CLYDE handouts on Schizoaffective Disorder and Olanzapine Behavior plan: patient needs to attend groups, have reduced irritability, improved hygiene prior to discharge, meet with family Family meeting with mother this afternoon Requested staff set up court hearing for short term certification with patients court appointed tax attorney 11/11/17 08:11 Subjective: CC: "I don't need to be here, I want to go home" Patient reports not wanting further treatment in the hospital. Unable to explain diagnosis or reasons for treatment. Unable to explain why he hasn't showered or done laundry; unable to explain why he would not meet with mother to review discharge planning. Denies violent or suicidal thoughts or AH. Yells at this M.D. and refused further interview. Objective: Vital Signs Temp Pulse Resp BP Pulse Ox 36.4 C 69 14 110/70 94 11/11/17 06:30 11/11/17 06:30 11/11/17 06:30 11/11/17 06:30 11/11/17 06:30 11/10/17 11/11/17 11/12/17 05:59 05:59 05:59 Intake Total 480 740 Balance 480 740 Alert WM. Ambulatory without weakness or tremor. Speech RRR, brief yelling. Angry, irritable affect. Mood 'I want to go home.' Thoughts illogical. Denies SI or HI or AH. Paranoid and guarded attitude. No insight. Staff report patient 6 hours and cooperated with blood draw. Weekend psychiatrist reported ex- visited and reported decline in functioning concurrent with disorganized thinking and paranoid delusions over several years consistent with a diagnosis of a Schizophrenia-spectrum disorder. Staff report patient irritable and hostile, isolating to room, not bathing or changing clothes, disorganized thinking when discussing behavior plan and discharge/treatment goals. - Time Spent With Patient Time Spent With Patient: 20 minutes - Pending Discharge Pending Discharge Within 24 Hours: No Pending Discharge Within 48 Hours: No ICD10 Worksheet Patient Problems: Problems Problem Status Onset Schizoaffective disorder Acute Catatonia Acute Psychotic disorder Acute Bipolar disorder Acute
[2017-11-11] MEDS: LEVOTHYROXINE 50 MCG TAB PO SCH (08:26)
[2017-11-11] MEDS: LITHIUM CARBONATE 600 MG CAP PO SCH (08:26)
[2017-11-11] MEDS ORDERED: OLANZapine DISINTEGR 5 MG TAB PO SCH (09:00)
[2017-11-11] MEDS: LORazepam 0.5 MG TAB PO SCH ×3 (15:32→19:18)
[2017-11-11] MEDS: LITHIUM CARBONATE 300 MG CAP PO SCH (19:17)
[2017-11-11] MEDS ORDERED: OLANZapine 2.5 MG TAB PO SCH (21:00)
[2017-11-12] MEDS: LITHIUM CARBONATE 600 MG CAP PO SCH ×3 (08:37→19:18)
[2017-11-12] MEDS: LORazepam 0.5 MG TAB PO SCH ×3 (08:37→19:18)
--- NOTE | 2017-11-12 09:10 | SOAPPROG ---
SOAP Progress Note Assessment/Plan: Assessment: Bipolar Disorder, depressed/mixed with psychotic features versus Schizoaffective Disorder Catatonia Patient is irritable and continues to appear to have disorganized thinking, refusing cognitive testing (SLUMS), needs prompts to attend meals, only attended one group yesterday - appeared anxious and hypoverbal. Patient refusing to sign TUNG to coordinate care with ex-, who is caring for their children. Patient had partial mutism with brief Risperdal trial 11/01 - 11/04 and again after one dose of Zyprexa. 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 Note from mother brought yesterday indicates patient has >20 day supply of [place] 600mg TID, Ritalin, Lamictal 200mg, Levothyroxine, Gabapentin 100mg all filled in early September. Plan: Short Term Certification for grave disability Apply for court ordered medication, due to history of medication non-compliance contributing to past hospitalizations Monitor PO fluid intake, % meals eaten, behavior on unit, irritability, though disorder. Increase [place] 600mg TID Continue Ativan 0.5mg TID Request 2nd opinion from Dr. Whelan regarding diagnosis of catatonia spectrum disorder and potential benefit of ECT 11/12/17 09:16 Subjective: CC: "I don't want to talk" Patient refuses much of interview. Reports he is unwilling to discuss treatment plan and requests discharge. Unwilling to sign TUNG to coordinate discharge planning with ex-. Unwilling to explain why he was unable to speak to mother yesterday afternoon. Unable to identify diagnosis, benefits of medication. Unable or unwilling to discuss having support after discharge. After starting SLUMS/cognitive testing, patient yells "I don't need to do this" and walks away and slams door to room. Unable/unwilling to explain name and location of last psychiatric hospitalization, unwilling to sign TUNG for ex- regarding discharge planning and discussing care of their children. Objective: Vital Signs Temp Pulse Resp BP Pulse Ox 36.4 C 75 14 103/61 94 11/12/17 06:44 11/12/17 06:44 11/12/17 06:44 11/12/17 06:44 11/12/17 06:44 Laboratory Results 11/11/17 06:00 11/11/17 11/12/17 11/13/17 05:59 05:59 05:59 Intake Total 740 500 Balance 740 500 Alert tall WM with burgess. No focal weakness or tremors. Lying in bed initially. Initially not willing to leave bed or room for interview. Later brief yelling and walks away from interview, refuses to complete SLUMS/ Cognitive testing. Speech brief, few words, brief yelling. Thoughts perseverative on leaving hospital and discharge. Unable/unwilling to explain name and location of last psychiatric hospitalization, unwilling to sign TUNG for ex- regarding discharge planning and discussing care of their children. Mood "I want to go home." Affect preoccupied, irritable. Some internal preoccupation or thought blocking. Denies SI or HI or AH. Unable to assess cognition. Insight/judgment impaired. BMP WNL, Li 0.8 yesterday. Staff report patient ate 75% of breakfast and dinner, slept thru lunch. In AM was able to shower and change clothes with multiple prompts. In afternoon was mostly mute, only attended one group but was appearing anxious, preoccupied, and hypoverbal. Slept overnight, cooperative with PM meds last night and AM meds today. - Time Spent With Patient Time Spent With Patient: 15 minutes - Pending Discharge Pending Discharge Within 24 Hours: No Pending Discharge Within 48 Hours: No ICD10 Worksheet Patient Problems: Problems Problem Status Onset Bipolar disorder Acute Catatonia Acute Psychotic disorder Acute Schizoaffective disorder Acute
[2017-11-12] MEDS: LEVOTHYROXINE 50 MCG TAB PO SCH (09:36)
[2017-11-13] MEDS: LORazepam 0.5 MG TAB PO SCH ×3 (08:37→20:40)
[2017-11-13] MEDS: LITHIUM CARBONATE 600 MG CAP PO SCH ×3 (08:38→20:39)
--- NOTE | 2017-11-13 09:08 | SOAPPROG ---
SOAP Progress Note Assessment/Plan: Assessment: Bipolar Disorder, depressed/mixed with psychotic features versus Schizoaffective Disorder - bipolar type Catatonia History of ADHD; rule out hypersomnia/narcolepsy Patient is spending excessive time in bed, hypoverbal, appears dysphoric and briefly irritable and preoccupied, only attended one group yesterday - appeared anxious and hypoverbal, has been refusing to coordinate discharge planning with mother and ex-. Patient does not report AH or paranoia but appears illogical with impaired thought organization and abstract thinking. Patient had partial mutism with brief Risperdal trial 11/01 - 11/04 and again after one dose of Zyprexa. Patient is more talkative today but has poor insight/judgment. Unclear if patients excessive time in bed and limited speech is related to: severe negative symptoms of Schizophrenia, catatonia-spectrum disorder, psychotic depression, or possible narcolepsy variant (previously treated with 60mg/day of methylphenidate). Plan: Short Term Certification for grave disability, 11/03/[address] ordered medications due to history of non-compliance 11/12/17 Monitor PO fluid intake, % meals eaten, behavior on unit, irritability, though disorder. Continue [place] 600mg TID, increased 11/12/17 Continue Ativan 0.5mg TID Start Wellbutrin 100mg BID @ 0800,1200 for depression and possible narcolepsy variant Patient not willing to consent to start ECT trial and doesn't want to discuss ECT further with Dr. Whelan If having increased speech and ability to attend groups, will recheck cognition 11/13/17 09:14 Subjective: CC: "I want to go home" Patient unable to explain irritability and refusal to engage in cognitive testing yesterday. Reports past use of high dose Ritalin (60mg/day) was for ADHD and denies past diagnosis of Narcolepsy. Unable to explain his refusal to have care coordinated with ex- or mother at this time. Denies feeling depressed or hopeless or irritable. Denies AH or paranoia. Unable to name location of past psychiatric hospitalization. Reports he is unwilling to consent to ECT or discuss ECT further with Dr. Whelan. Objective: Vital Signs Temp Pulse Resp BP Pulse Ox 36.6 C 70 16 119/67 98 11/12/17 19:27 11/12/17 19:27 11/12/17 19:27 11/12/17 19:27 11/12/17 19:27 Laboratory Results 11/11/17 06:00 11/12/17 11/13/17 11/14/17 05:59 05:59 05:59 Intake Total 500 700 Balance 500 700 Alert WM. Ambulatory without tremors or weakness. Speech RRR, briefly loud, multiple sentences. Mood 'I'm fine.' Affect dysphoric and irritable. Thoughts briefly organized with limited information. Denies SI or HI or AH. No evident delusions. Limited recall of recent events. Insight poor. Staff report patient slept overnight and ate 75% of meals. Spending most of day in bed, hypoverbal. Attended one group for 2 minutes and didn't speak and walked away. - Time Spent With Patient Time Spent With Patient: 15 minutes - Pending Discharge Pending Discharge Within 24 Hours: No Pending Discharge Within 48 Hours: No ICD10 Worksheet Patient Problems: Problems Problem Status Onset Bipolar disorder Acute Catatonia Acute Psychotic disorder Acute Schizoaffective disorder Acute
[2017-11-13] MEDS: LEVOTHYROXINE 50 MCG TAB PO SCH (09:19)
[2017-11-13] MEDS: buPROPion SR 100 MG TAB PO SCH (12:28)
[2017-11-14] MEDS: LORazepam 0.5 MG TAB PO SCH ×3 (09:06→21:18)
[2017-11-14] MEDS: LEVOTHYROXINE 50 MCG TAB PO SCH (09:06)
[2017-11-14] MEDS: LITHIUM CARBONATE 600 MG CAP PO SCH ×3 (09:06→21:18)
[2017-11-14] MEDS: buPROPion SR 100 MG TAB PO SCH ×2 (09:06→12:56)
--- NOTE | 2017-11-14 13:16 | SOAPPROG ---
SOAP Progress Note Assessment/Plan: Assessment: Bipolar Disorder, depressed/mixed with psychotic features versus Schizoaffective Disorder - bipolar type Catatonia History of ADHD; rule out hypersomnia secondary to narcolepsy Rule Out Schizophrenia with severe negative symptoms Beto Out Neurocognitive disorder Unclear if patients excessive time in bed (16 hours a day), impaired thought process, brief inappropriate irritability, and limited speech is related to: severe negative symptoms of Schizophrenia, catatonia-spectrum disorder, psychotic depression, or possible narcolepsy variant (previously treated with 60mg/day of methylphenidate). Patient has a history of reportedly being stable in the past on a combination of Dexter, Lamictal, Methylphenidate and has been prescribed low dose of Seroquel and Risperdal as well. Patient has had a significant decline in functioning concurrent with episodic paranoia, agitation , poor self care, and impaired thought organization over past year. Patient appears gravely disabled: severe lethargy and hypersomnia, is unable to have a full conversation about behavior plan, treatment plan, care coordination with ex- (who is caring for their children); is mute at times, is briefly irritable and agitated and walks away when attempting to be interviewed in lounge; unable to provide organized description of thought content. Patient is a ECT candidate due to history of mood disorder and past suicide attempt 3 years, possible psychotic depression with thought disorder and catatonic symptoms, excessive time in bed, inability to interact appropriately with staff and other patients. Plan: Short Term Certification for grave disability, 11/03/[address] ordered medications due to history of outpatient medication non-compliance 11/12/17 Monitor PO fluid intake, % meals eaten, behavior on unit, irritability, though disorder, need for prompts for hygiene, ability to tolerate interviews and groups, ability or willingness to sign TUNG to coordinate care with ex-. Continue [place] 600mg TID, increased 11/12/17 Check AM lithium level and BMP Continue Ativan 0.5mg TID Increase Bupropion: Wellbutrin XL 300mg QAM for depression and possible narcolepsy variant Reviewed case with Dr. Whelan on 11/11 and 11/14, due to this psychiatrists recommendation that patient have an ECT trial. Patient not willing to consent to start ECT trial and doesn't want to discuss ECT further with Dr. Whelan. If having increased speech and ability to attend groups and reduced, will recheck cognition and thought organization and judgment regarding treatment and discharge planning. Consider baseline brain imaging if consistently cooperative and calm with interpersonal interactions outside of room, as the patient would need to be transported to [facility]. 11/14/17 13:26 11/14/17 13:27 Subjective: CC: "I don't want to talk, I just want to leave" Patient reports not wanting to talk and wanting to leave the hospital. Denies side effects from Bupropion. Reports he does not want to try ECT. No answer to questions regarding internal mood state, reasons for irritability, questions about suicide, questions about violent thoughts, or questions about hallucinations or paranoia. No answer to questions regarding coordinating care with ex-. Gets agitated and walks away when asked to start SLUMS cognitive testing. Objective: Vital Signs Temp Pulse Resp BP Pulse Ox 36.6 C 78 16 111/79 96 11/14/17 07:00 11/14/17 07:00 11/14/17 07:00 11/14/17 07:00 11/14/17 07:00 Laboratory Results 11/11/17 06:00 11/13/17 11/14/17 11/15/17 05:59 05:59 05:59 Intake Total 700 480 Balance 700 480 Preoccupied WM, lying in bed. Sits up brief and ambulates into lounge for interview but clenches fists, grimaces, and impulsively walks away after brief interview. Speech: mute or no answer to several questions. Brief speech perseverating on leaving the hospital and discharging. No response to questions about mood, SI, AH, HI/violence, or reasons for not signing TUNG. No insight and impaired judgment. Patient unable/unwilling to participate in SLUMS/cognitive testing. Staff report patient needs prompts to attend meals, then eats 75% meals. Attended one group yesterday afternoon but was mute during the group. Didn't attend any groups this AM. Slept 8 hours overnight but is in bed >8 hours during day shifts. - Time Spent With Patient Time Spent With Patient: 15 minutes - Pending Discharge Pending Discharge Within 24 Hours: No Pending Discharge Within 48 Hours: No ICD10 Worksheet Patient Problems: Problems Problem Status Onset Bipolar disorder Acute Catatonia Acute Psychotic disorder Acute Schizoaffective disorder Acute
[2017-11-15] MEDS: buPROPion XL 150 MG TAB PO SCH (08:22)
[2017-11-15] MEDS: LITHIUM CARBONATE 600 MG CAP PO SCH ×2 (08:22→21:07)
[2017-11-15] MEDS: LEVOTHYROXINE 50 MCG TAB PO SCH (08:24)
[2017-11-15] MEDS: LORazepam 0.5 MG TAB PO SCH ×3 (08:24→21:07)
--- NOTE | 2017-11-15 09:22 | SOAPPROG ---
SOAP Progress Note Assessment/Plan: Assessment: Bipolar Disorder, depressed/mixed with psychotic features Catatonia History of ADHD Hypersomnia - unclear if history of narcolepsy Patient appears gravely disabled: severe lethargy and hypersomnia, is unable to have a full conversation about behavior plan, treatment plan, care coordination with ex- (who is caring for their children); is mute at times, needs prompts for meals and hygiene. Patient is a ECT candidate due to history of mood disorder and past suicide attempt 3 years, possible psychotic depression with thought disorder and catatonic symptoms, excessive time in bed, inability to interact appropriately with staff and other patients, unable or unwilling to communicate with family. Plan: Short Term Certification for grave disability, 11/03/[address] medications due to history of outpatient medication non-compliance, and refusing some blood draws, 11/12/17 Monitor PO fluid intake, % meals eaten, behavior on unit, irritability, though disorder, need for prompts for hygiene, ability to tolerate interviews and groups, ability or willingness to sign TUNG to coordinate care with ex-. Current Medications: [place] 600mg TID Lorazepam 0.5mg TID Wellbutrin XL 300mg QAM Patient agreeable to have ECT evaluation Request ECT evaluation by Dr. Whelan or Levi Will review medication list with ECT psychiatrists if patient consenting/ starting ECT Re-attempt blood draw in AM: BMP, [place] level Baseline EKG 11/15/17 09:26 Subjective: CC: "I don't know" Patient mute with minimal speech. Unable to explain why he is not talking to family. Unable to describe inner thoughts. Mumbles few words in response to some questions. Denies AH or violent thoughts or SI. Unable to explain why he isn't showering or attending groups. Objective: Vital Signs Temp Pulse Resp BP Pulse Ox 36.4 C 75 16 114/66 96 11/15/17 06:34 11/15/17 06:34 11/15/17 06:34 11/15/17 06:34 11/15/17 06:34 Laboratory Results 11/11/17 06:00 11/14/17 11/15/17 11/16/17 05:59 05:59 05:59 Intake Total 480 480 Balance 480 480 Alert WM. Sitting in room staring at floor. Speech soft few words. Mood - no answer. Affect restricted, preoccupied, briefly tearful, briefly irritable. Thoughts brief with minimal content. Mute to some questions. Denies SI or HI. Oriented to month, year, [place]. Able to perform serial 3 subtraction from 20. Denies AH. Insight limited. Staff report patient slept overnight but refused blood draw. Ate 50% of breakfast. Isolating to room, comes out for meals but appears distracted and preoccupied and refusing to attend groups. Minimal speech or mutism with most questions. Sleeping excessively at times. Unwilling to speak on phone to relatives. - Time Spent With Patient Time Spent With Patient: 20 minutes - Pending Discharge Pending Discharge Within 24 Hours: No Pending Discharge Within 48 Hours: No ICD10 Worksheet Patient Problems: Problems Problem Status Onset Bipolar disorder Acute Catatonia Acute Psychotic disorder Acute Schizoaffective disorder Acute
--- NOTE | 2017-11-15 12:53 | CPEKG ---
Heart Rate: 79 RR Interval: 759 P-R Interval: 248 QRSD Interval: 94 QT Interval: 392 QTC Interval: 450 P [place]: 72 QRS [place]: -19 T Wave [place]: 37 EKG Severity - ABNORMAL ECG - EKG Impression: SINUS RHYTHM EKG Impression: FIRST DEGREE AV BLOCK Electronically Signed By: Kevyn Helms 16-Nov-2017 06:44:51
--- NOTE | 2017-11-15 14:44 | PDMN ---
Medical Necessity Medical necessity: Reviewed case on phone with Dr. Nathaniel Sandoval [phone]. Authorization for continued stay was approved. Dr. Sandoval agreed that ECT consult was appropriate.
[2017-11-16] MEDS: LITHIUM CARBONATE 600 MG CAP PO SCH ×2 (08:15→19:10)
[2017-11-16] MEDS: buPROPion XL 150 MG TAB PO SCH (08:16)
[2017-11-16] MEDS: LORazepam 0.5 MG TAB PO SCH ×3 (08:16→19:11)
[2017-11-16] MEDS: LEVOTHYROXINE 50 MCG TAB PO SCH (09:41)
--- NOTE | 2017-11-16 15:02 | SOAPPROG ---
SOAP Progress Note Assessment/Plan: Assessment: Per Dr. Sanchez's notes: Assessment/Plan: Assessment: Bipolar Disorder, depressed/mixed with psychotic features Catatonia History of ADHD Hypersomnia - unclear if history of narcolepsy Patient appears gravely disabled: severe lethargy and hypersomnia, is unable to have a full conversation about behavior plan, treatment plan, care coordination with ex- (who is caring for their children); is mute at times, needs prompts for meals and hygiene. Patient is a ECT candidate due to history of mood disorder and past suicide attempt 3 years, possible psychotic depression with thought disorder and catatonic symptoms, excessive time in bed, inability to interact appropriately with staff and other patients, unable or unwilling to communicate with family. Plan: Short Term Certification for grave disability, 11/03/[address] medications due to history of outpatient medication non-compliance, and refusing some blood draws, 11/12/17 Monitor PO fluid intake, % meals eaten, behavior on unit, irritability, though disorder, need for prompts for hygiene, ability to tolerate interviews and groups, ability or willingness to sign TUNG to coordinate care with ex-. Current Medications: [place] 600mg TID Lorazepam 0.5mg TID Wellbutrin XL 300mg QAM Patient agreeable to have ECT evaluation Request ECT evaluation by Dr. Whelan or Levi Will review medication list with ECT psychiatrists if patient consenting/ starting ECT Re-attempt blood draw in AM: BMP, [place] level Baseline EKG 11/16/17 14:52 1. No change from last time this MD saw patient a week ago. Patient still presents as paranoid, disorganized, impaired reality testing. No evidence of depression or pillo. 2. Unlikely patient will receive any benefit from [place] as he is not acutely manic, information provided by [facility] does not support dx of pillo or MDD ( required for dx of bipolar and schizoaffective disorder), and 2+ yrs of tx with [place] and lamictal by Dr. Levy did not result in significant or sustained improvements in mood/behavior/thought process per . 3. Patient continues to be guarded, isolative, internally preoccupied and selectively mute. He has not endorsed any sxs of depression since admission, and denies any SI/HI. He is eating appropriately, drinking sufficient amounts of fluid, sleeping adequate amounts (7 hrs last night) - neither hypersomnia or insomnia. 4. A behavioral plan was instituted this week, and patient has complied with it so far - showering, doing laundry, attending groups and eating/drinking. Subjective: Met with patient, reviewed chart and d/w staff. No change from last time this MD saw patient a week ago. Patient still presents as paranoid, disorganized, impaired reality testing. No evidence of depression or pillo. Patient continues to be guarded, isolative, internally preoccupied and selectively mute. He has not endorsed any sxs of depression since admission, and denies any SI/HI. He is eating appropriately, drinking sufficient amounts of fluid, sleeping adequate amounts (7 hrs last night) - neither hypersomnia or insomnia. A behavioral plan was instituted this week, and patient has complied with it so far - showering, doing laundry, attending groups and eating/drinking. Objective: Vital Signs Temp Pulse Resp BP Pulse Ox 36.3 C 73 16 116/67 95 11/16/17 06:30 11/16/17 06:30 11/16/17 06:30 11/16/17 06:30 11/16/17 06:30 Laboratory Results 11/11/17 06:00 11/15/17 11/16/17 11/17/17 05:59 05:59 05:59 Intake Total 480 1000 Balance 480 1000 MSE: Affect: Constricted Mood: No response TP: Disorganized TC: Denies SI/HI Insight/Judgment: Impaired - Time Spent With Patient Time Spent With Patient: 15" - Pending Discharge Pending Discharge Within 24 Hours: No Pending Discharge Within 48 Hours: No ICD10 Worksheet Patient Problems: Problems Problem Status Onset Bipolar disorder Acute Catatonia Acute Psychotic disorder Acute Schizoaffective disorder Acute
[2017-11-17] MEDS: LITHIUM CARBONATE 600 MG CAP PO SCH ×2 (08:14→19:13)
[2017-11-17] MEDS: buPROPion XL 150 MG TAB PO SCH (08:14)
[2017-11-17] MEDS: LORazepam 0.5 MG TAB PO SCH ×3 (08:14→19:13)
[2017-11-17] MEDS: LEVOTHYROXINE 50 MCG TAB PO SCH (10:32)
--- NOTE | 2017-11-17 13:24 | SOAPPROG ---
SOAP Progress Note Assessment/Plan: Assessment: Per Dr. Sanchez's notes: Assessment/Plan: Assessment: Bipolar Disorder, depressed/mixed with psychotic features Catatonia History of ADHD Hypersomnia - unclear if history of narcolepsy Patient appears gravely disabled: severe lethargy and hypersomnia, is unable to have a full conversation about behavior plan, treatment plan, care coordination with ex- (who is caring for their children); is mute at times, needs prompts for meals and hygiene. Patient is a ECT candidate due to history of mood disorder and past suicide attempt 3 years, possible psychotic depression with thought disorder and catatonic symptoms, excessive time in bed, inability to interact appropriately with staff and other patients, unable or unwilling to communicate with family. Plan: Short Term Certification for grave disability, 11/03/[address] ordered medications due to history of outpatient medication non-compliance, and refusing some blood draws, 11/12/17 Monitor PO fluid intake, % meals eaten, behavior on unit, irritability, though disorder, need for prompts for hygiene, ability to tolerate interviews and groups, ability or willingness to sign TUNG to coordinate care with ex-. Current Medications: Romulus 600mg TID Lorazepam 0.5mg TID Wellbutrin XL 300mg QAM Patient agreeable to have ECT evaluation Request ECT evaluation by Dr. Whelan or Levi Will review medication list with ECT psychiatrists if patient consenting/ starting ECT Re-attempt blood draw in AM: BMP, Romulus level Baseline EKG 11/16/17 14:52 1. No change from last time this MD saw patient a week ago. Patient still presents as paranoid, disorganized, impaired reality testing. No evidence of depression or pillo. 2. Unlikely patient will receive any benefit from Romulus as he is not acutely manic, information provided by [facility] [place] support dx of pillo or MDD ( required for dx of bipolar and schizoaffective disorder), and 2+ yrs of tx with Romulus and lamictal by Dr. Levy did not result in significant or sustained improvements in mood/behavior/thought process per . 3. Patient continues to be guarded, isolative, internally preoccupied and selectively mute. He has not endorsed any sxs of depression since admission, and denies any SI/HI. He is eating appropriately, drinking sufficient amounts of fluid, sleeping adequate amounts (7 hrs last night) - neither hypersomnia or insomnia. 4. A behavioral plan was instituted this week, and patient has complied with it so far - showering, doing laundry, attending groups and eating/drinking. 11/17/17 13:17 1. Patient slightly more forthcoming today. He says he does feel depressed, but when asked for details cannot provide any sxs. He slept 8 hrs last night, has eaten 100% of all meals and is drinking plenty of fluids. 2. Patient continues to isolate in his room, stares vacantly out window and does not seem to be processing information well. Still seems to be some evidence of thought blocking and internal preoccupation. 3. Still following his behavioral support plan with prompting. 4. Dr. Sanchez has requested ECT evaluation later this week. Subjective: Met with patient, reviewed chart and d/w staff. Patient is slightly more forthcoming with responses to questions. He makes intermittent eye contact with MD. When MD asks if patient feels depressed, he says, "Yes." However, when MD asks more detailed questions about particular sxs, patient says, "I don't know. " He is eating, drinking fluids, showering, dressing and sleeping adequately well. He still appears to have negative psychotic sxs, including isolation, withdrawal, flat affect, cognitive slowing, thought blocking, response latency. He also appears to have internal preoccupation, possibly responding to internal stimuli and residual paranoia. It's difficult to fully evaluate patient d/t paucity of speech and limited interaction. Objective: Vital Signs Temp Pulse Resp BP Pulse Ox 36.3 C 76 14 132/88 H 97 11/16/17 06:30 11/17/17 06:41 11/17/17 06:41 11/17/17 06:41 11/17/17 06:41 Laboratory Results 11/11/17 06:00 11/16/17 11/17/17 11/18/17 05:59 05:59 05:59 Intake Total 1000 1700 Balance 1000 1700 MSE: Affect: Flat Mood: Depressed TP: Disorganized, paucity of speech TC: Denies SI/HI, no AH/VH, paranoid and internally preoccupied Insight/Judgment: Impaired - Time Spent With Patient Time Spent With Patient: 15" - Pending Discharge Pending Discharge Within 24 Hours: No Pending Discharge Within 48 Hours: No ICD10 Worksheet Patient Problems: Problems Problem Status Onset Bipolar disorder Acute Catatonia Acute Psychotic disorder Acute Schizoaffective disorder Acute
[2017-11-18] MEDS: LORazepam 0.5 MG TAB PO SCH ×3 (04:44→20:20)
[2017-11-18] MEDS: LEVOTHYROXINE 50 MCG TAB PO SCH (08:18)
[2017-11-18] MEDS: buPROPion XL 150 MG TAB PO SCH (08:18)
[2017-11-18] MEDS: LITHIUM CARBONATE 600 MG CAP PO SCH ×2 (08:18→20:20)
[2017-11-18] MEDS ORDERED: LORazepam 0.5 MG TAB PO SCH (08:29)
--- NOTE | 2017-11-18 08:47 | SOAPPROG ---
SOAP Progress Note Assessment/Plan: Assessment: Bipolar Disorder, depressed/mixed with psychotic features versus Schizoaffective Disorder Catatonia History of ADHD History of Hypersomnia - unclear if history of narcolepsy History of hypothyroidism 1st Degree AV block on EKG while on Cloverly 600mg TID Patient appears gravely disabled: unable to have full conversation about behavior plan, treatment plan, care coordination with ex- (who is caring for their children); is mute at times, needs prompts for meals and hygiene. Patient is less irritable than last week but endorses depression. Patient continues to appear preoccupied and at times has purposeless pacing in room. Patient refused blood draw this morning (to check lithium level, assess for dehydration, obtain CBC prior to possible future Clozapine trial). Plan: Short Term Certification for grave disability, 11/03/[address] ordered medication and medical treatment (blood draw) hearing 11/21/17 @ 10 :30AM. Sent revised letter to the court regarding court ordered medications to include Clozapine Monitor PO fluid intake, % meals eaten, behavior on unit, irritability, though disorder, need for prompts for hygiene, ability to tolerate interviews and groups, ability or willingness to sign TUNG to coordinate care with ex- and mother. Increase Lorazepam 1mg PO TID, monitor catatonic symptoms; monitor for hypersomnia Continue Cloverly 600mg BID Continue Wellbutrin XL 300mg QAM Repeat EKG If having severe somnolence, consider ER evaluation to obtain BMP (rule out dehydration) and Cloverly level 11/18/17 08:55 Subjective: CC: "OK" "Depressed" Patient is a poor historian with no spontaneous speech and no response to several questions. Endorses feeling depressed and anxious but unable to explain thought content further. Denies AH or paranoia. Unable or unwilling to explain why he doesn't leave room except for meals, why he hasn't spoke to ex - or mother, or what treatments have worked for him in the past. Denies pain or feeling stiff or oversedated by medication. Denies nausea or headache. Objective: Vital Signs Temp Pulse Resp BP Pulse Ox 36.5 C 80 16 143/84 H 98 11/18/17 06:13 11/18/17 06:13 11/18/17 06:13 11/18/17 06:13 11/18/17 06:13 Laboratory Results 11/11/17 06:00 11/17/17 11/18/17 11/19/17 05:59 05:59 05:59 Intake Total 1700 1050 Balance 1700 1050 Alert WM. Sitting in bed staring at wall. Able to follow prompts to eat and drink. No spontaneous speech. No answers to some questions. Brief few words in response to some questions. Thoughts brief with minimal information. Unable to explain behavior plan or why he hasn't spoke to ex- or mother. Endorses feeling depressed and anxious. Denies SI or HI or AH. Insight/ judgment impaired. Staff report patient eating 75% of meals and drinks fluids with prompts. Needs prompts to clothing and showering. Not attending any groups, isolating to room and staring at floor or wall. Other times pacing in room with purposeless behaviors. Patient refused AM blood draw today and reported 'I want to go home.' - Time Spent With Patient Time Spent With Patient: 10 minutes - Pending Discharge Pending Discharge Within 24 Hours: No Pending Discharge Within 48 Hours: No ICD10 Worksheet Patient Problems: Problems Problem Status Onset Bipolar disorder Acute Catatonia Acute Psychotic disorder Acute Schizoaffective disorder Acute
--- NOTE | 2017-11-18 14:15 | CPEKG ---
Heart Rate: 92 RR Interval: 652 P-R Interval: 212 QRSD Interval: 102 QT Interval: 360 QTC Interval: 446 P Gildford: 42 QRS G[place]ford: -15 T Wave G[place]: 50 EKG Severity - ABNORMAL ECG - EKG Impression: SINUS RHYTHM EKG Impression: FIRST DEGREE AV BLOCK Electronically Signed By: Blaise Curry 19-Nov-2017 09:42:13
--- NOTE | 2017-11-18 17:32 | SOAPPROG ---
SOAP Progress Note Assessment/Plan: Assessment: Plan: Subjective: I returned to evaluate patient today to attempt to complete ECT evaluation. Case was reviewed at length with Dr. Sanchez. He remains catatonic, unresponsive. Unable to meaningfully discuss treatment options or review educational materials. I submitted request for court ordered ECT. Objective: Vital Signs Temp Pulse Resp BP Pulse Ox 36.5 C 76 16 119/73 95 11/18/17 06:13 11/18/17 17:13 11/18/17 17:13 11/18/17 17:13 11/18/17 17:13 Laboratory Results 11/11/17 06:00 11/17/17 11/18/17 11/19/17 05:59 05:59 05:59 Intake Total 1700 1050 490 Balance 1700 1050 490 ICD10 Worksheet Patient Problems: Problems Problem Status Onset Bipolar disorder Acute Catatonia Acute Psychotic disorder Acute Schizoaffective disorder Acute
--- NOTE | 2017-11-18 19:16 | GCON ---
[f rep st] CONSULTATION ECT CONSULTATION AND SECOND OPINION DATE OF CONSULTATION: 11/15/2017 DATE OF CONSULTATION: 11/15/2017 and 11/18/2017. TIME SPENT: 120 minutes. SOURCE OF INFORMATION: Review of records from hospitalization at [facility] from 11/01 to the current under the care of Dr. Sanchez. Personal conversation with Dr. Sanchez in regard to lourdes fall's treatment and history. Review of Dr. Sanchez's petition for involuntary medications dated 0 11/12/2017 and review of history, written history provided by Soha Angeles dated 10/31/2017. REASON FOR CONSULTATION: Patient is a 36-year-old male with a history of bipolar disorder. He was admitted due to increasing inability to care for himself at home. He had apparently been alcantara ffering a 2-3 year overall mental and social decline characterized by not only mood symptoms, such as depression, but also psychosis in the form of paranoia. His mood reportedly varied, but he tended t o experience depressed mood and anxiety more days than not over the last 2-3 years. This caused him to isolate and interact little with his and young children. He also experienced the episodes of paranoia, in which he believed coworkers were spying on him, had tapped his telephone, and were foll owing him at all times. This extended into the home, where he felt unsafe, and eventually this inter fered with his ability to work, causing him to become unemployed. He continued to withdraw over time , and this affected his marriage, causing several separations and an ultimate divorce. He described an inability to tolerate interactions with his young children or provide adequate parenting. He also had several episodes of aggression toward his due to either disagreements over parenting or his paranoia. The divorce from his was finalized on October 10, 2017, though his continued to i nteract with him. His and mother would check on him and noted him not to have left his apartmen t in some time, not bathing, not eating or drinking adequately, and exhibiting obvious symptoms of se amelia depression. He had become reclusive after quitting his job, staying at home and working on a [employer] during the day. 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 I attempted to review the information with the patient on 2 occasions, though due to his depression a nd catatonia, he is unable to provide history. He speaks only in 1-3 word sentences and shows signif icant delay, internal preoccupation, and decreased thought production. Attempts to discuss with him the possible treatments for his condition, including medications or ECT, were also ineffective as he is unable to enter into or seemingly comprehend the conversation. I left educational materials with him for ECT, which he was unable also to comprehend. During his hospitalization here, he has been under the care of Dr. Abel Sanchez, who has treated him with several different kinds of medication. Dr. Sanchez initially attempted treatment with antipsych otic medications, including first Risperdal and then olanzapine. On both occasions, these significan tly worsened his retarded catatonia and had to be discontinued. He was then placed on scheduled rosario odiazepines in the form of lorazepam 0.5-1 mg b.i.d. to t.i.d., which seemed to significantly improve his fluency of thought and spontaneity. Unfortunately, it still was inadequate to much of a reasona ble interaction and caused excessive sedation. It was decreased to 0.5 mg t.i.d., which he seems to be tolerating well, but has not adequately alleviated his retarded catatonia. He was started on bupr opion XL 300 mg daily, and this possibly caused some improvement in his energy level and processing, though this has been minimal. He has also been treated with initially Lamictal, but then Carnation at doses up to 1500 mg daily. He is currently receiving 600 mg b.i.d. This has not seemed to meaningfu lly change his clinical course. Recent lithium level drawn on 11/11/2017 was 0.8. PAST PSYCHIATRIC HISTORY: Significant for a 2-3 year history of worsening depression. He has a hist ory of several episodes of depression, including after a divorce and other stresses previously in his life that were not treated. His 's history indicates that he began to suffer the more severe sy mptoms in the last 3 years. He had a spontaneous suicide attempt in which he took an overdose of sev eral medications while in [place] 2 years ago, requiring hospitalization at that time. He has had no other history of hospitalizations or suicide attempts until now. The patient has recently started s [facility] Dr. Corey Levy, psychiatrist, and Samym Diamond, a therapist. It is unclear when he saw [facility] care providers last. ALLERGIES: No known medical allergies. CURRENT MEDICATIONS: Include bupropion XL 300 mg daily, levothyroxine 50 mcg daily, lithium carbonat e 600 mg b.i.d., lorazepam 0.5 mg p.o. t.i.d. and 1 mg every 4 hours as needed. PAST MEDICAL HISTORY: Noncontributory to my review. He has no documented history of any cardiac or central nervous system disease. PAST SURGICAL HISTORY: Unknown to me at this time. SOCIAL HISTORY: The patient was recently living in an apartment alone. His ex- and their 3 hortencia pfeiffer live in [place]. His mother also lives in [place]. His mother is his primary support at this [facility]. He is an only child. The patient's father is . 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 He has most recently been working at home, as mentioned above. He was recently within the month. He has 3 children, a son, 4, a daughter, 3, and a daughter who is 11 weeks old. He has n o known legal problems. He has no history of illicit drug use or alcohol abuse. ADMISSION LABORATORY: CBC was normal. Serum chemistries are normal. Liver function is normal. Lip id profile shows an LDL up at 124, non-HDL up at 148. TSH is normal at 1.25. Urine drug screen is n egative for all substances. Carnation level on 11/11/2017 was 0.8. MENTAL STATUS EXAMINATION: Reveals a large, robust-appearing male. He is wearing a T-keyonna t and hospital scrubs. He is sitting on the edge of his bed, staring blankly forward at the wall whe n I enter the room. He does not move, but does make eye contact. His overall activity level demonst rates significant psychomotor retardation. His speech is delayed and low in tone, though fluent. Hi s affect is blunted to flat. His mood is described as "pretty bad." His thought process demonstrate s significant delay with internal preoccupation, likely blocking or severe paucity of thought. He is only able to respond in 1-3 word brief sentences after significant delay. His thought content revea ls an overall guarded demeanor and likely paranoia. He does not answer questions in regard to halluc inatory experiences. He does not answer questions in regard to orientation or memory. His premorbid intellect appears to be above average as evidenced by his educational and occupational histories. Marques e does not answer questions in regard to suicidal, homicidal, or violent thoughts. His current insig ht and judgment appear to be poor. IMPRESSION: Bipolar 1 disorder, depressed, most recent episode depressed, severe, with psychosis. C atatonia, recent divorce, social isolation, employment problems, chronic illness, recurrent illness. The patient is a 36-year-old male with a history of bipolar disorder. At this time, it is unclear to me what manic symptoms he may have experienced in the past, but he clearly has had recurre nt depression. I will attempt to speak with Dr. Levy to clarify some of these issues. The primary issue at hand, however, at this time is his worsening severe depression and catatonia. This has not improved with the use of lithium and bupropion and was significantly worsened by the use of atypical antipsychotics. He is clearly unable to care for himself or comprehend the nature and severity of h is illness at this time, and I believe him to be gravely disabled. He is also unable to process info rmation to the extent of providing informed consent for treatment or to even reasonably consider alte rnative treatment, such as ECT. He told me today that he did not want ECT when I returned after visi ting with him Saturday. When I asked him if he had thought about doing ECT, he nodded his head. When I asked him if he wanted to do ECT, he said "no." He could not discuss this further or provide any e xplanation or questions about the treatment or his reasons for apparently refusing. RECOMMENDATIONS: I agree completely with Dr. Sanchez's diagnostic formulation and treatment recommen dations. I believe these symptoms to be those of depression and retarded catatonia and not of a thou ght disorder, such as schizophrenia. I believe, therefore, that ECT is the best treatment for him at this time and strongly recommend that we proceed. I will petition the court for court-ordered invol untary electroconvulsive therapy due to the gravity of his condition and his ongoing severe disabilit y. /[id number]/MODL
[2017-11-19] MEDS: LEVOTHYROXINE 50 MCG TAB PO SCH (09:03)
[2017-11-19] MEDS: LORazepam 0.5 MG TAB PO SCH ×3 (09:03→21:15)
--- NOTE | 2017-11-19 09:14 | SOAPPROG ---
SOAP Progress Note Assessment/Plan: Assessment: Bipolar Disorder, depressed/mixed with psychotic features versus Schizoaffective Disorder Catatonia History of ADHD History of hypothyroidism 1st Degree AV block Patient appears gravely disabled: unable to have full conversation about behavior plan, treatment plan, care coordination with ex- (who is caring for their children); mostly mute, needs prompts for meals and hygiene. Patient cooperated with Head CT but repeatedly refusing blood draws. Patient had severe insomnia overnight and reduced PO intake over past 24 hours. Plan: Short Term Certification for grave disability, 11/03/17 [address] ordered medication and medical treatment (blood draws) hearing 11/21/17 @ 10:30AM. Court ordered ECT request submitted by Dr. Whelan. Monitor PO fluid intake, % meals eaten, behavior on unit, irritability, though disorder, need for prompts for hygiene, ability to tolerate interviews and groups, ability or willingness to sign TUNG to coordinate care with ex- and mother. Continue Ativan 0.5mg TID Discontinue [place] (poor PO intake with risk of toxicity if dehydrated, refusing blood tests) Discontinue Wellbutrin (insomnia, poor PO intake) If patient somnolent or hypotensive, send to ER to check for dehydration Left message for mother Juanis Angeles (patients NOK) [phone] requesting call back 11/19/17 09:17 Subjective: Patient non-verbal except 'yes' and 'no' to a few questions, otherwise no answer to questions. Objective: Vital Signs Temp Pulse Resp BP Pulse Ox 36.5 C 92 15 129/78 H 96 11/18/17 06:13 11/19/17 06:40 11/19/17 06:40 11/19/17 06:40 11/19/17 06:40 Laboratory Results 11/11/17 06:00 11/18/17 11/19/17 11/20/17 05:59 05:59 05:59 Intake Total 1050 490 Balance 1050 490 Alert WM. Ambulatory without weakness when arriving back from CT scan. Mute to most questions. Internal preoccupation. Ate some breakfast; drank small amount of fluid with prompts. Speech soft 1- 2 words, no response to several questions. Unable to assess thought content or subjective mood state. No insight. Affect restricted, preoccupied. Staff report patient only slept 2 hours, was staring at wall most of the time. Had reduced PO intake, 500cc of fluid, ate 25%-100% of meals yesterday with prompts. Head CT read as WNL this morning. EKG showed 1st degree AV block, VA interval improved 212 (previously 248). - Time Spent With Patient Time Spent With Patient: 10 minutes - Pending Discharge Pending Discharge Within 24 Hours: No Pending Discharge Within 48 Hours: No ICD10 Worksheet Patient Problems: Problems Problem Status Onset Schizoaffective disorder Acute Catatonia Acute Psychotic disorder Acute Bipolar disorder Acute
[2017-11-19] MEDS: LITHIUM CARBONATE 600 MG CAP PO SCH (10:19)
[2017-11-19] MEDS: LORazepam 0.5 MG TAB PO PRN (12:48)
[2017-11-20] MEDS: LORazepam 0.5 MG TAB PO PRN (08:12)
[2017-11-20] MEDS: LEVOTHYROXINE 50 MCG TAB PO SCH (08:12)
[2017-11-20] MEDS: LORazepam 0.5 MG TAB PO SCH ×2 (08:12→20:25)
[2017-11-20] MEDS ORDERED: LORazepam 0.5 MG TAB PO PRN (10:21)
--- NOTE | 2017-11-20 10:26 | SOAPPROG ---
SOAP Progress Note Assessment/Plan: Assessment: Catatonia History of Bipolar Disorder, depressed/mixed with psychotic features versus Schizoaffective Disorder History of ADHD History of hypothyroidism 1st Degree AV block Patient appears gravely disabled: unable to have full conversation about behavior plan, treatment plan, care coordination with ex- (who is caring for their children); mostly mute, needs prompts for meals and hygiene. Patient had severe insomnia overnight and reduced PO intake over past 48 hours. Plan: Short Term Certification for grave disability, 11/03/17 Court ordered medication and medical treatment (blood draws) hearing 11/21/17 @ 10:30AM. Court ordered ECT request submitted by Dr. Whelan. Monitor PO fluid intake, % meals eaten, behavior on unit, irritability, though disorder, need for prompts for hygiene, ability to tolerate interviews and groups, ability or willingness to sign TUNG to coordinate care with ex- and mother. Increase Ativan 1mg PO BID Changed PRN Ativan 1mg PO [id number] PRN anxiety/insomnia, instructed nurses to offer 2 hours after PM dose if still awake Refer to medical ER at [facility] to evaluate for dehydration or rhabdomyolysis 11/20/17 10:24 Subjective: CC: "OK" Patient is a poor historian, with no answers or speech to most questions. Denies pain or feeling weak. Unable to describe thoughts or mood or clarify if he is having any dangerous thoughts. Unable to explain why he isn't eating or drinking a lot. No answers to questions about agitation or anxiety or racing thoughts. Objective: Vital Signs Temp Pulse Resp BP Pulse Ox 36.8 C 79 18 131/88 H 95 11/19/17 19:25 11/19/17 19:25 11/19/17 19:25 11/19/17 19:25 11/19/17 19:25 Laboratory Results 11/11/17 06:00 11/19/17 11/20/17 11/21/17 05:59 05:59 05:59 Intake Total 490 980 Balance 490 980 Patient pacing in room. Difficulty to redirect. Drinks fluids with multiple prompts. Speech soft few words mumbled. Mute to most questions. Appears preoccupied and distracted. Unable to assess thought content. Impaired insight /judgment. Staff report patient lying in bed staring at wall for hours alternating with pacing in room. Poor PO intake. Didn't sleep overnight. Cooperated with scheduled 0.5mg Lorazepam this AM and 1mg PRN dose by mouth. - Time Spent With Patient Time Spent With Patient: 10 minutes - Pending Discharge Pending Discharge Within 24 Hours: No Pending Discharge Within 48 Hours: No ICD10 Worksheet Patient Problems: Problems Problem Status Onset Bipolar disorder Acute Catatonia Acute Psychotic disorder Acute Schizoaffective disorder Acute
[2017-11-20] MEDS ORDERED: LORazepam 2 MG/ML INJ IM PRN (16:28)
[2017-11-21] MEDS: LORazepam 0.5 MG TAB PO SCH ×2 (08:45→19:24)
[2017-11-21] MEDS: LEVOTHYROXINE 50 MCG TAB PO SCH (08:47)
--- NOTE | 2017-11-21 11:20 | CPEKG ---
Heart Rate: 80 RR Interval: 750 P-R Interval: 219 QRSD Interval: 102 QT Interval: 396 QTC Interval: 457 P [place]: -6 QRS [place]: -15 T Wave [place]: 30 EKG Severity - ABNORMAL ECG - EKG Impression: SINUS RHYTHM EKG Impression: FIRST DEGREE AV BLOCK Electronically Signed By: Blaise Curry 21-Nov-2017 12:44:00
--- NOTE | 2017-11-21 12:28 | SOAPPROG ---
SOAP Progress Note Assessment/Plan: Assessment: Catatonia History of Bipolar Disorder, depressed/mixed with psychotic features versus Schizoaffective Disorder History of ADHD History of hypothyroidism 1st Degree AV block Patient has continued catatonic symptoms, continued need for prompting for meals and hygiene, mostly mute. Patient received 3.5mg of Ativan total yesterday. Plan: Attended court hearing 10:00-12:[address]an [address] [facility] [address]. Studio Control Operator approved certification (11/03/17), court ordered medications and medical treatment, and court ordered ECT. Discussed plan over phone with mother Juanis Angeles [phone]. Typed letter for her, left a waterfront director. 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 Court Ordered ECT starting tomorrow 11/22/17 Subjective: CC: "OK" "No" Patient is mute or says 'no' or 'ok' to questions and statements. Denies physical complaints. Objective: Vital Signs Temp Pulse Resp BP Pulse Ox 36.8 C 97 12 145/80 H 97 11/19/17 19:25 11/20/17 20:00 11/20/17 20:00 11/20/17 20:00 11/20/17 20:00 Laboratory Results 11/11/17 06:00 11/20/17 11/21/17 11/22/17 05:59 05:59 05:59 Intake Total 980 950 Balance 980 950 Alert WM, pacing in room at times. Speech soft one word or no response/mute. Unable to assess mood or thought content. No insight. Unable to explain diagnosis or treatment plan or behavior plan. Impaired insight. Distrace Staff report yesterday patient was pacing and restless and unable to eat breakfast, more calm after 1mg Lorazepam and ate better. In afternoon was pacing at times tried to leave unit with staff. Later took PRN Ativan and later scheduled HS Ativan and slept 7 hours. Mute and isolating to room. - Time Spent With Patient Time Spent With Patient: 15 minutes - Pending Discharge Pending Discharge Within 24 Hours: No Pending Discharge Within 48 Hours: No ICD10 Worksheet Patient Problems: Problems Problem Status Onset Psychotic disorder Acute Schizoaffective disorder Acute Bipolar disorder Acute
[2017-11-22] MEDS ORDERED: CITRIC ACID/SODIUM CITRATE 30 ML UDCUP PO PRN (06:00)
[2017-11-22] MEDS ORDERED: ONDANSETRON DISINTEGRATING 4 MG TAB PO PRN (06:00)
[2017-11-22] MEDS ORDERED: MIDAZOLAM 2 MG/2 ML VIAL ONE (06:29)
[2017-11-22] MEDS ORDERED: ETOMIDATE 20 MG/10 ML VIAL ONE (06:30)
[2017-11-22] MEDS ORDERED: ROCURONIUM 50 MG/5 ML VIAL ONE (06:30)
[2017-11-22] MEDS ORDERED: fentaNYL 100 MCG/2 ML INJ ONE (06:30)
[2017-11-22] MEDS ORDERED: KETOROLAC 30 MG/1 ML SDV ONE (06:30)
[2017-11-22] MEDS ORDERED: ONDANSETRON 4 MG/2 ML VIAL ONE (06:30)
[2017-11-22] MEDS ORDERED: SUCCINYLCHOLINE CHLORIDE 200 MG/10 ML VIAL ONE (06:30)
[2017-11-22] MEDS ORDERED: GLYCOPYRROLATE 0.2 MG/1 ML VIAL ONE (06:30)
[2017-11-22] MEDS ORDERED: ONDANSETRON DISINTEGRATING 4 MG TAB ONE ×2 (06:53→13:51)
[2017-11-22] MEDS ORDERED: CITRIC ACID/SODIUM CITRATE 30 ML UDCUP ONE ×2 (06:53→13:51)
[2017-11-22] MEDS ORDERED: LORazepam 2 MG/ML INJ ONE (07:10)
[2017-11-22] MEDS: LORazepam 0.5 MG TAB PO SCH ×2 (08:43→19:39)
[2017-11-22] MEDS: NS 1,000 ML IV PRN (13:53)
--- NOTE | 2017-11-22 14:17 | PDECTPN ---
ECT Progress Note Patient Problems: Problems Problem Status Onset Code Psychotic disorder Acute F29 Schizoaffective disorder Acute F25.9 Bipolar disorder Acute F31.9 Date: 11/22/17 ECT provider: Adan Whelan Anesthesia: Ej Vanegas Stimulus dose (%): 35 Pulse width: 0.5 ECT EMG (sec): 43 ECT EEG (sec): 115 ECT treatment type: bilateral Patient refused QIDS-SR & MMSE: yes Home medications: Medication Instructions Recorded Gabapentin [Neurontin 100 MG (*)] 100 mg PO TID 11/01/17 Levothyroxine [Synthroid 50 mcg 50 mcg PO DAILY06 11/01/17 (*)] [employer] Carbonate [[employer] 600 mg PO TID 11/01/17 Carbonate 600 mg cap (*)] Methylphenidate HCl [Ritalin 20mg 20 mg PO QID 11/01/17 (*)] QUEtiapine FUMARATE [Seroquel 50 50 mg PO DAILY 11/01/17 mg (*)] lamoTRIgine [Lamotrigine] 200 mg PO DAILY 11/01/17 Medication review: completed Current treatment plan: acute phase Treatment plan frequency: 3 times per week ECT narrative: Pt presents for initial court ordered ECT. He remains mute, but compliant with instructions. PO intake remains poor. Not participating in ADL's. Underwent bilateral ECT without complication.
--- NOTE | 2017-11-22 14:21 | PDHPUP ---
History & Physical Update H&P update statement: This history and physical update is based on an assessment of the patient which was completed after admission or registration (within 24 hours), but prior to the surgery/procedure. H&P update: H&P reviewed & patient examined, no change in patient's condition since H&P completed
--- NOTE | 2017-11-22 14:21 | PDANEPAE ---
ECT Pre Anesthetic Evaluation Allergies/Adverse Reactions: No Known Allergies Allergy (Unverified 10/31/17 15:09) Patient ID confirmed: Yes H&P reviewed: Yes Pre-anesthetic history reviewed: Yes Heart: regular rate and rhythym, no murmur, rub, or gallop Lungs: no respiratory distress, clear to auscultation Mallampati Score: Class 3 ASA Status: II Home Medications: Medication Instructions Recorded Gabapentin [Neurontin 100 MG (*)] 100 mg PO TID 11/01/17 Levothyroxine [Synthroid 50 mcg 50 mcg PO DAILY06 11/01/17 (*)] [place] Carbonate [[place] 600 mg PO TID 11/01/17 Carbonate 600 mg cap (*)] Methylphenidate HCl [Ritalin 20mg 20 mg PO QID 11/01/17 (*)] QUEtiapine FUMARATE [Seroquel 50 50 mg PO DAILY 11/01/17 mg (*)] lamoTRIgine [Lamotrigine] 200 mg PO DAILY 11/01/17 Medication review: completed Patient interviewed: Yes Patient examined: Yes Anesthetic plan discussed with patient: Yes Anesthetic risks discussed with patient: Yes ECT Pre-Anesthetic History - Height & Weight Height: 190.5 cm Weight: 99.246 kg BMI: 27.35 - Tobacco/Alcohol/Drug Use Smoking Status: Never smoked Alcohol Use: No - Pulmonary History Hx Oxygen in Use at Home: No - Endocrine History Hx Diabetes: No
--- NOTE | 2017-11-22 14:25 | POSTANESTH ---
Post Anesthetic Evaluation Cardiovascular Status: Normal, Stable Respiratory Status: Normal, Stable, Requires Airway Assist Level of Consciousness/Mental Status: Unconscious Pain Control: Adequate, Prn Tx Ordered Nausea/Vomiting Control: Adequate, Prn Tx Ordered Complications Possibly Related to Anesthesia: None Noted
[2017-11-23] MEDS ORDERED: NS 1,000 ML IV PRN (04:41)
[2017-11-23] MEDS ORDERED: ONDANSETRON DISINTEGRATING 4 MG TAB PO PRN (04:41)
[2017-11-23] MEDS ORDERED: CITRIC ACID/SODIUM CITRATE 30 ML UDCUP PO PRN (04:41)
[2017-11-23] MEDS ORDERED: fentaNYL 100 MCG/2 ML INJ ONE (06:48)
[2017-11-23] MEDS ORDERED: MIDAZOLAM 2 MG/2 ML VIAL ONE (06:48)
[2017-11-23] MEDS ORDERED: ONDANSETRON 4 MG/2 ML VIAL ONE (06:48)
[2017-11-23] MEDS ORDERED: GLYCOPYRROLATE 0.2 MG/1 ML VIAL ONE (06:48)
[2017-11-23] MEDS ORDERED: KETOROLAC 30 MG/1 ML SDV ONE (06:48)
[2017-11-23] MEDS ORDERED: LIDOCAINE 2% 5 ML SDV ONE (06:48)
[2017-11-23] MEDS ORDERED: ETOMIDATE 20 MG/10 ML VIAL ONE (06:49)
[2017-11-23] MEDS ORDERED: ROCURONIUM 50 MG/5 ML VIAL ONE (06:49)
[2017-11-23] MEDS ORDERED: SUCCINYLCHOLINE CHLORIDE 200 MG/10 ML VIAL ONE (06:49)
[2017-11-23] MEDS ORDERED: CITRIC ACID/SODIUM CITRATE 30 ML UDCUP ONE (07:07)
[2017-11-23] MEDS ORDERED: ONDANSETRON DISINTEGRATING 4 MG TAB ONE (07:07)
[2017-11-23] MEDS: NS 1,000 ML IV PRN (07:19)
--- NOTE | 2017-11-23 07:38 | PDECTPN ---
ECT Progress Note Patient Problems: Problems Problem Status Onset Code Psychotic disorder Acute F29 Schizoaffective disorder Acute F25.9 Bipolar disorder Acute F31.9 Date: 11/23/17 ECT provider: Adan Whelan Anesthesia: Ej Vanegas Stimulus dose (%): 40 Pulse width: 0.5 ECT EMG (sec): 34 ECT EEG (sec): 45 ECT treatment type: bilateral Home medications: Medication Instructions Recorded Gabapentin [Neurontin 100 MG (*)] 100 mg PO TID 11/01/17 Levothyroxine [Synthroid 50 mcg 50 mcg PO DAILY06 11/01/17 (*)] [place] Carbonate [[place] 600 mg PO TID 11/01/17 Carbonate 600 mg cap (*)] Methylphenidate HCl [Ritalin 20mg 20 mg PO QID 11/01/17 (*)] QUEtiapine FUMARATE [Seroquel 50 50 mg PO DAILY 11/01/17 mg (*)] lamoTRIgine [Lamotrigine] 200 mg PO DAILY 11/01/17 Medication review: completed Current treatment plan: acute phase Treatment plan frequency: 3 times per week ECT narrative: Pt presents for continued acute course ECT. He is mute, but cooperative. Indicates "no" when I ask about headache or nausea. Did well after first treatment. Slept well last night. Underwent bilateral ECT without complication.
[2017-11-23] MEDS ORDERED: LABETALOL HCL 5 MG/ML 20 ML MDV ONE (07:42)
[2017-11-23] MEDS ORDERED: LORazepam 2 MG/ML INJ ONE (07:48)
--- NOTE | 2017-11-23 07:54 | PDANEPAE ---
ECT Pre Anesthetic Evaluation Allergies/Adverse Reactions: No Known Allergies Allergy (Unverified 10/31/17 15:09) Mallampati Score: Class 3 ASA Status: II Home Medications: Medication Instructions Recorded Gabapentin [Neurontin 100 MG (*)] 100 mg PO TID 11/01/17 Levothyroxine [Synthroid 50 mcg 50 mcg PO DAILY06 11/01/17 (*)] [place] Carbonate [[place] 600 mg PO TID 11/01/17 Carbonate 600 mg cap (*)] Methylphenidate HCl [Ritalin 20mg 20 mg PO QID 11/01/17 (*)] QUEtiapine FUMARATE [Seroquel 50 50 mg PO DAILY 11/01/17 mg (*)] lamoTRIgine [Lamotrigine] 200 mg PO DAILY 11/01/17 ECT Pre-Anesthetic History - Height & Weight Height: 190.5 cm Weight: 99.246 kg BMI: 27.35 - Tobacco/Alcohol/Drug Use Smoking Status: Never smoked Alcohol Use: No - Pulmonary History Hx Oxygen in Use at Home: No - Endocrine History Hx Diabetes: No
--- NOTE | 2017-11-23 07:55 | POSTANESTH ---
Post Anesthetic Evaluation Cardiovascular Status: Normal, Stable Respiratory Status: Normal, Stable, Requires Airway Assist Level of Consciousness/Mental Status: Unconscious Pain Control: Adequate, Prn Tx Ordered Nausea/Vomiting Control: Adequate, Prn Tx Ordered Complications Possibly Related to Anesthesia: None Noted (Post ictal agitation lorazepam 2 mg iv)
[2017-11-23] MEDS ORDERED: ACETAMINOPHEN 325 MG TAB ONE (08:08)
[2017-11-23] MEDS: LORazepam 0.5 MG TAB PO SCH ×2 (09:00→20:34)
[2017-11-23] MEDS: LEVOTHYROXINE 50 MCG TAB PO SCH ×2 (10:54→10:55)
[2017-11-24] MEDS: LORazepam 0.5 MG TAB PO SCH ×2 (08:24→22:40)
[2017-11-24] MEDS: LEVOTHYROXINE 50 MCG TAB PO SCH (08:25)
--- NOTE | 2017-11-24 13:03 | SOAPPROG ---
SOAP Progress Note Assessment/Plan: Assessment: Per Dr. Whelan's ECT note: Pt presents for continued acute course ECT. He is mute, but cooperative. Indicates "no" when I ask about headache or nausea. Did well after first treatment. Slept well last night. Underwent bilateral ECT without complication. 11/24/17 12:57 1. Patient was present in day area only for lunch, and then went back to his room. 2. Patient had very little to say to MD, but did answer a few brief questions only with "yes" and "no." 3. Staff report patient seems confused. He was given hygiene products for shower and told he could do laundry, but RN found him 30 min later still pacing in his room. 4. Patient denied any SE's after his ECT tx yesterday, and denies any physical complaints today. 5. Patient ate 100% of dinner and breakfast. 6. Next ECT on Saturday. Subjective: Met with patient, reviewed chart and d/w staff. MD saw patient briefly on Saturday after his 2nd ECT treatment. He denied PHILLIP, N/V and all other physical complaints. He ate well, according to staff, last night and ate 100% of breakfast and lunch today. Staff note that patient seems distracted and confused. When MD tried to ask questions, patient was in hurry to return to his room from the common area. When MD asked how he was feeling, he said, "OK" and said "no" when asked if he had any questions. Staff encouraged patient to take shower and wash his clothes since he's been wearing the same sweat pants and T- shirt for several days. However, despite being given hygiene products, he hadn' t taken a shower. Staff found him still pacing in his room. Objective: Vital Signs Temp Pulse Resp BP Pulse Ox 36.6 C 73 18 105/64 96 11/24/17 06:31 11/24/17 06:31 11/24/17 06:31 11/24/17 06:31 11/24/17 06:31 Laboratory Results 11/11/17 06:00 11/23/17 11/24/17 11/25/17 05:59 05:59 05:59 Intake Total 2450 540 Balance 2450 540 MSE: Affect: Flat Mood: "OK" TP: Disorganized, paucity of speech TC: Denies any SI/HI, no evidence of RIS, AH/VH, though still guarded, possibly still paranoid Insight/Judgment: Impaired - Time Spent With Patient Time Spent With Patient: 15" - Pending Discharge Pending Discharge Within 24 Hours: No Pending Discharge Within 48 Hours: No ICD10 Worksheet Patient Problems: Problems Problem Status Onset Psychotic disorder Acute Schizoaffective disorder Acute Bipolar disorder Acute
[2017-11-25] MEDS ORDERED: CITRIC ACID/SODIUM CITRATE 30 ML UDCUP PO PRN (05:00)
[2017-11-25] MEDS ORDERED: ONDANSETRON DISINTEGRATING 4 MG TAB PO PRN (05:00)
[2017-11-25] MEDS ORDERED: NS 1,000 ML IV PRN (05:00)
[2017-11-25] MEDS ORDERED: fentaNYL 100 MCG/2 ML INJ ONE (05:21)
[2017-11-25] MEDS ORDERED: KETOROLAC 30 MG/1 ML SDV ONE (05:21)
[2017-11-25] MEDS ORDERED: MIDAZOLAM 2 MG/2 ML VIAL ONE (05:21)
[2017-11-25] MEDS ORDERED: GLYCOPYRROLATE 0.2 MG/1 ML VIAL ONE (05:21)
[2017-11-25] MEDS ORDERED: ONDANSETRON 4 MG/2 ML VIAL ONE (05:21)
[2017-11-25] MEDS ORDERED: ROCURONIUM 50 MG/5 ML VIAL ONE (05:22)
[2017-11-25] MEDS ORDERED: SUCCINYLCHOLINE CHLORIDE 200 MG/10 ML VIAL ONE (05:22)
[2017-11-25] MEDS ORDERED: ETOMIDATE 20 MG/10 ML VIAL ONE (05:22)
[2017-11-25] MEDS ORDERED: LORazepam 2 MG/ML INJ ONE (05:37)
[2017-11-25] MEDS ORDERED: CITRIC ACID/SODIUM CITRATE 30 ML UDCUP ONE (07:51)
[2017-11-25] MEDS ORDERED: ONDANSETRON DISINTEGRATING 4 MG TAB ONE (07:51)
--- NOTE | 2017-11-25 08:32 | PDECTPN ---
ECT Progress Note Patient Problems: Problems Problem Status Onset Code Psychotic disorder Acute F29 Schizoaffective disorder Acute F25.9 Bipolar disorder Acute F31.9 Date: 11/25/17 ECT provider: Adan Whelan Anesthesia: Ej Vanegas Stimulus dose (%): 45 Pulse width: 0.5 ECT EMG (sec): 30 ECT EEG (sec): 44 ECT treatment type: bilateral MMSE Total Score (Max = 21): 20 Home medications: Medication Instructions Recorded Gabapentin [Neurontin 100 MG (*)] 100 mg PO TID 11/01/17 Levothyroxine [Synthroid 50 mcg 50 mcg PO DAILY06 11/01/17 (*)] [place] Carbonate [[place] 600 mg PO TID 11/01/17 Carbonate 600 mg cap (*)] Methylphenidate HCl [Ritalin 20mg 20 mg PO QID 11/01/17 (*)] QUEtiapine FUMARATE [Seroquel 50 50 mg PO DAILY 11/01/17 mg (*)] lamoTRIgine [Lamotrigine] 200 mg PO DAILY 11/01/17 Medication review: completed Current treatment plan: acute phase Treatment plan frequency: 3 times per week ECT narrative: Pt presents for continued acute course ECT. He showed improvement yesterday, speaking spontaneously. He is calm and coop. today, making good eye contact and answering most questions with a yes or no. Clearly has some continued delay. Affect remains flat. No agitation noted. Underwent bilateral ECT without complication.
--- NOTE | 2017-11-25 08:35 | PDANEPAE ---
ECT Pre Anesthetic Evaluation Allergies/Adverse Reactions: No Known Allergies Allergy (Unverified 10/31/17 15:09) Patient ID confirmed: Yes H&P reviewed: Yes Pre-anesthetic history reviewed: Yes Heart: regular rate and rhythym, no murmur, rub, or gallop Lungs: no respiratory distress, clear to auscultation Mallampati Score: Class 3 ASA Status: II Home Medications: Medication Instructions Recorded Gabapentin [Neurontin 100 MG (*)] 100 mg PO TID 11/01/17 Levothyroxine [Synthroid 50 mcg 50 mcg PO DAILY06 11/01/17 (*)] [place] Carbonate [[place] 600 mg PO TID 11/01/17 Carbonate 600 mg cap (*)] Methylphenidate HCl [Ritalin 20mg 20 mg PO QID 11/01/17 (*)] QUEtiapine FUMARATE [Seroquel 50 50 mg PO DAILY 11/01/17 mg (*)] lamoTRIgine [Lamotrigine] 200 mg PO DAILY 11/01/17 Medication review: completed Patient interviewed: Yes Patient examined: Yes Anesthetic plan discussed with patient: Yes Anesthetic risks discussed with patient: Yes ECT Pre-Anesthetic History - Height & Weight Height: 190.5 cm Weight: 99.246 kg BMI: 27.35 - Tobacco/Alcohol/Drug Use Smoking Status: Never smoked Alcohol Use: No - Pulmonary History Hx Oxygen in Use at Home: No - Endocrine History Hx Diabetes: No
[2017-11-25] MEDS ORDERED: LABETALOL HCL 5 MG/ML 20 ML MDV ONE (08:38)
[2017-11-25] MEDS: LORazepam 0.5 MG TAB PO SCH ×2 (08:38→19:09)
--- NOTE | 2017-11-25 08:42 | POSTANESTH ---
Post Anesthetic Evaluation Cardiovascular Status: Tx Over/Under Hydration Respiratory Status: Normal, Stable, Requires Airway Assist Level of Consciousness/Mental Status: Unconscious Pain Control: Adequate, Prn Tx Ordered Nausea/Vomiting Control: Adequate, Prn Tx Ordered Complications Possibly Related to Anesthesia: None Noted
[2017-11-25] MEDS: LEVOTHYROXINE 50 MCG TAB PO SCH ×2 (10:47→23:17)
[2017-11-26] MEDS: LORazepam 0.5 MG TAB PO SCH ×2 (09:01→18:48)
[2017-11-26] MEDS: LEVOTHYROXINE 50 MCG TAB PO SCH (09:02)
--- NOTE | 2017-11-26 14:01 | SOAPPROG ---
SOAP Progress Note Assessment/Plan: Assessment: Plan: 11/26/17 14:00 Catatonia: Improving with ECT. CCM. Mood/psychosis: Will likely see more prominent sx's as the catatonia improves. Will consider reinstituting medications at that time. Subjective: Pt seen, discussed with staff. Up to breakfast in dining room this morning. Noted to be out of room several times today. Offers no c/o's. Sleeping much better, >10 hours last night. Objective: Vital Signs Temp Pulse Resp BP Pulse Ox 36.3 C 72 14 123/76 H 94 11/25/17 09:05 11/26/17 06:16 11/26/17 06:16 11/26/17 06:16 11/26/17 06:16 Laboratory Results 11/11/17 06:00 11/25/17 11/26/17 11/27/17 05:59 05:59 05:59 Intake Total 560 1865 Balance 560 1865 MSE: Poorly groomed. Affect remains flat. Mood is not stated. Speaks in one or two word sentences, but is more engaging. Poverty of though continues. TP appears internally directed, disorganized. TC reveals no mention of psychosis. - Time Spent With Patient Time Spent With Patient: 15 ICD10 Worksheet Patient Problems: Problems Problem Status Onset Psychotic disorder Acute Schizoaffective disorder Acute Bipolar disorder Acute
[2017-11-27] MEDS ORDERED: CITRIC ACID/SODIUM CITRATE 30 ML UDCUP PO PRN (05:00)
[2017-11-27] MEDS ORDERED: ONDANSETRON DISINTEGRATING 4 MG TAB PO PRN (05:00)
[2017-11-27] MEDS ORDERED: NS 1,000 ML IV PRN (05:00)
[2017-11-27] MEDS ORDERED: fentaNYL 100 MCG/2 ML INJ ONE (05:53)
[2017-11-27] MEDS ORDERED: LABETALOL HCL 5 MG/ML 20 ML MDV ONE (05:54)
[2017-11-27] MEDS ORDERED: GLYCOPYRROLATE 0.2 MG/1 ML VIAL ONE (05:54)
[2017-11-27] MEDS ORDERED: ETOMIDATE 20 MG/10 ML VIAL ONE (05:54)
[2017-11-27] MEDS ORDERED: MIDAZOLAM 2 MG/2 ML VIAL ONE (05:54)
[2017-11-27] MEDS ORDERED: KETOROLAC 30 MG/1 ML SDV ONE (05:54)
[2017-11-27] MEDS ORDERED: ONDANSETRON 4 MG/2 ML VIAL ONE (05:54)
[2017-11-27] MEDS ORDERED: LIDOCAINE 2% 5 ML SDV ONE (05:54)
[2017-11-27] MEDS ORDERED: LORazepam 2 MG/ML INJ ONE (05:55)
[2017-11-27] MEDS ORDERED: ROCURONIUM 50 MG/5 ML VIAL ONE (05:55)
[2017-11-27] MEDS ORDERED: SUCCINYLCHOLINE CHLORIDE 200 MG/10 ML VIAL ONE (05:55)
[2017-11-27] MEDS ORDERED: CITRIC ACID/SODIUM CITRATE 30 ML UDCUP ONE (06:07)
[2017-11-27] MEDS ORDERED: ONDANSETRON DISINTEGRATING 4 MG TAB ONE (06:07)
--- NOTE | 2017-11-27 07:10 | PDANEPAE ---
ECT Pre Anesthetic Evaluation Allergies/Adverse Reactions: No Known Allergies Allergy (Unverified 10/31/17 15:09) Patient ID confirmed: Yes H&P reviewed: Yes Pre-anesthetic history reviewed: Yes Heart: regular rate and rhythym, no murmur, rub, or gallop Lungs: no respiratory distress, clear to auscultation Mallampati Score: Class 3 ASA Status: II Home Medications: Medication Instructions Recorded Gabapentin [Neurontin 100 MG (*)] 100 mg PO TID 11/01/17 Levothyroxine [Synthroid 50 mcg 50 mcg PO DAILY06 11/01/17 (*)] [place] Carbonate [[place] 600 mg PO TID 11/01/17 Carbonate 600 mg cap (*)] Methylphenidate HCl [Ritalin 20mg 20 mg PO QID 11/01/17 (*)] QUEtiapine FUMARATE [Seroquel 50 50 mg PO DAILY 11/01/17 mg (*)] lamoTRIgine [Lamotrigine] 200 mg PO DAILY 11/01/17 Medication review: completed Patient interviewed: Yes Patient examined: Yes Anesthetic plan discussed with patient: Yes Anesthetic risks discussed with patient: Yes ECT Pre-Anesthetic History - Height & Weight Height: 190.5 cm Weight: 99.246 kg BMI: 27.35 - Tobacco/Alcohol/Drug Use Smoking Status: Never smoked Alcohol Use: No - Pulmonary History Hx Oxygen in Use at Home: No - Endocrine History Hx Diabetes: No
--- NOTE | 2017-11-27 07:19 | PDECTPN ---
ECT Progress Note Patient Problems: Problems Problem Status Onset Code Psychotic disorder Acute F29 Schizoaffective disorder Acute F25.9 Bipolar disorder Acute F31.9 Date: 11/27/17 ECT provider: Adan Whelan Anesthesia: Ej Vanegas Stimulus dose (%): 50 Pulse width: 0.5 ECT EMG (sec): 27 ECT EEG (sec): 40 ECT treatment type: bilateral MMSE Total Score (Max = 21): 21 Home medications: Medication Instructions Recorded Gabapentin [Neurontin 100 MG (*)] 100 mg PO TID 11/01/17 Levothyroxine [Synthroid 50 mcg 50 mcg PO DAILY06 11/01/17 (*)] [place] Carbonate [[place] 600 mg PO TID 11/01/17 Carbonate 600 mg cap (*)] Methylphenidate HCl [Ritalin 20mg 20 mg PO QID 11/01/17 (*)] QUEtiapine FUMARATE [Seroquel 50 50 mg PO DAILY 11/01/17 mg (*)] lamoTRIgine [Lamotrigine] 200 mg PO DAILY 11/01/17 Medication review: completed Current treatment plan: acute phase Treatment plan frequency: 3 times per week ECT narrative: Pt presents for continued acute course ECT. He has improved significantly since starting ECT. He remains withdrawn with paucity of speech and likely thought, but is more spontaneous and communicative. Offers no c/o's and has no questions for me this morning. Calm and cooperative with a blunted to flat affect. Scored 21/21 on MMSE this morning. Underwent bilateral ECT without complication.
[2017-11-27] MEDS: LORazepam 0.5 MG TAB PO SCH ×2 (10:17→21:18)
[2017-11-27] MEDS: LEVOTHYROXINE 50 MCG TAB PO SCH (10:17)
[2017-11-28] MEDS: LEVOTHYROXINE 50 MCG TAB PO SCH (09:18)
[2017-11-28] MEDS: LORazepam 0.5 MG TAB PO SCH ×2 (09:18→16:21)
--- NOTE | 2017-11-28 15:53 | SOAPPROG ---
SOAP Progress Note Assessment/Plan: Assessment: Plan: 11/26/17 14:00 Catatonia: Improving with ECT. CCM. Mood/psychosis: Will likely see more prominent sx's as the catatonia improves. Will consider reinstituting medications at that time. 11/28/17 15:55 Catatonia: Continued improvement. Not ready for d/c at this point due to continued lack of participation in ADL's, social withdrawal and continued catatonic poverty of thought and avolition. CCM. Subjective: Pt seen, discussed with staff. Sitting in room on bed, staring ahead, but interactive when I enter. He makes good eye contact and initiates conversation. He states, "I feel a lot better and I want to go home." I agreed that he is much improved, but emphasized to him this is the first actual conversation we have had together. He does not comment, but seems accepting of this. He continues to state that he wants to go home. States he believes he can care for himself without help. I emphasized that he is improving but has a ways to go until he is able to transition to outpatient. Discussed the need for outpatient ECT treatment after d/c and he is agreeable to this. Objective: Vital Signs Temp Pulse Resp BP Pulse Ox 36.5 C 75 14 121/91 H 92 11/27/17 17:44 11/28/17 06:30 11/28/17 06:30 11/28/17 06:30 11/28/17 06:30 Laboratory Results 11/11/17 06:00 11/27/17 11/28/17 11/29/17 05:59 05:59 05:59 Intake Total 1200 980 Balance 1200 980 MSE: Better groomed, more interactive. Affect is blunted, but better modulated. Mood is "pretty good." TP much more fluent, linear for longer periods; able to complete full sentences. TC reveals no evidence of psychosis. A&Ox4. - Time Spent With Patient Time Spent With Patient: 25" ICD10 Worksheet Patient Problems: Problems Problem Status Onset Psychotic disorder Acute Schizoaffective disorder Acute Bipolar disorder Acute
[2017-11-29] MEDS ORDERED: ONDANSETRON DISINTEGRATING 4 MG TAB PO PRN (05:00)
[2017-11-29] MEDS ORDERED: CITRIC ACID/SODIUM CITRATE 30 ML UDCUP PO PRN (05:00)
[2017-11-29] MEDS ORDERED: NS 1,000 ML IV PRN (05:00)
[2017-11-29] MEDS ORDERED: GLYCOPYRROLATE 0.2 MG/1 ML VIAL ONE (05:11)
[2017-11-29] MEDS ORDERED: ETOMIDATE 20 MG/10 ML VIAL ONE (05:11)
[2017-11-29] MEDS ORDERED: MIDAZOLAM 2 MG/2 ML VIAL ONE (05:11)
[2017-11-29] MEDS ORDERED: fentaNYL 100 MCG/2 ML INJ ONE (05:11)
[2017-11-29] MEDS ORDERED: LABETALOL HCL 5 MG/ML 20 ML MDV ONE (05:11)
[2017-11-29] MEDS ORDERED: ONDANSETRON 4 MG/2 ML VIAL ONE (05:11)
[2017-11-29] MEDS ORDERED: KETOROLAC 30 MG/1 ML SDV ONE (05:11)
[2017-11-29] MEDS ORDERED: LORazepam 2 MG/ML INJ ONE (05:12)
[2017-11-29] MEDS ORDERED: SUCCINYLCHOLINE CHLORIDE 200 MG/10 ML VIAL ONE (05:12)
[2017-11-29] MEDS ORDERED: ROCURONIUM 50 MG/5 ML VIAL ONE (05:12)
[2017-11-29] MEDS ORDERED: ONDANSETRON DISINTEGRATING 4 MG TAB ONE (07:19)
[2017-11-29] MEDS ORDERED: CITRIC ACID/SODIUM CITRATE 30 ML UDCUP ONE (07:19)
--- NOTE | 2017-11-29 07:57 | PDANEPAE ---
ECT Pre Anesthetic Evaluation Allergies/Adverse Reactions: No Known Allergies Allergy (Unverified 10/31/17 15:09) Patient ID confirmed: Yes H&P reviewed: Yes Pre-anesthetic history reviewed: Yes Heart: regular rate and rhythym, no murmur, rub, or gallop Lungs: no respiratory distress, clear to auscultation Mallampati Score: Class 3 ASA Status: III Home Medications: Medication Instructions Recorded Gabapentin [Neurontin 100 MG (*)] 100 mg PO TID 11/01/17 Levothyroxine [Synthroid 50 mcg 50 mcg PO DAILY06 11/01/17 (*)] [place] Carbonate [[place] 600 mg PO TID 11/01/17 Carbonate 600 mg cap (*)] Methylphenidate HCl [Ritalin 20mg 20 mg PO QID 11/01/17 (*)] QUEtiapine FUMARATE [Seroquel 50 50 mg PO DAILY 11/01/17 mg (*)] lamoTRIgine [Lamotrigine] 200 mg PO DAILY 11/01/17 Medication review: completed Patient interviewed: Yes Patient examined: Yes Anesthetic plan discussed with patient: Yes Anesthetic risks discussed with patient: Yes ECT Pre-Anesthetic History - Height & Weight Height: 190.5 cm Weight: 99.246 kg BMI: 27.35 - Anesthesia History Hx Anesthesia Complications (with details): none Family Hx Anesthesia Complications: none - Medications In the Past 6 Months the Patient Has Taken: Thyroid Medication, Tranquilizers - Tobacco/Alcohol/Drug Use Smoking Status: Never smoked Alcohol Use: No - Prior Surgeries/Hospitalizations Prior Surgeries: none Prior Medical Hospitalizations: none - Pulmonary History ECT Hx Asthma: No Hx Oxygen in Use at Home: No - Cardiovascular History Hx Hypertension: No Hx Arrhythmias: No Hx Palpitations: No Hx Chest Pain: No Hx Coronary Artery / Peripheral Vascular Disease: No Hx Blood Clot: No - Neurologic History Hx Cerebrovascular Accident: No Hx CT Scan Or MRI Of The Brain: No Hx Epilepsy, Convulsions, Seizures, Or Blackouts: No Hx Frequent Or Severe Headaches: No Hx Numbness: No Hx Neurologic Disorder: No - Dental History Current Dental Issues: None - Endocrine History Hx Diabetes: No Hx Thyroid Problems: Yes Endocrine History Comment: Takes Levothyroxine - Renal/Urologic History Hx Renal Disorders: No Hx Urinary Tract Problems: No - Liver History Hx Hepatic Disorders: No - Cancer History Hx Cancer: No - Hematology History Hx Unexplained Bleeding Of Any Type: No Hx Ease Of Bruising: No Hx Anemia: No - Gastrointestinal History Hx Gastroesophogeal Reflux Disease: No Hx Ulcers: No Hx Hiatal Hernia: No Hx Difficulty Swallowing: No - Musculoskeletal Hisory Hx Chronic Pain: No Hx Arthritis: No - Opthalmic History Hx Glaucoma: No Visual Assistive Devices: None Hx Opthalmic Disorders: No - Other Health History Physical Disabililty: No Recent Cough, Cold, or Fever: No Significant Weight Loss In The Last 4 Months: No Possible the Patient Might be : No
--- NOTE | 2017-11-29 07:58 | PDECTPN ---
ECT Progress Note Patient Problems: Problems Problem Status Onset Code Psychotic disorder Acute F29 Schizoaffective disorder Acute F25.9 Bipolar disorder Acute F31.9 Date: 11/29/17 ECT provider: Adan Whelan Anesthesia: Ej Vanegas Stimulus dose (%): 55 Pulse width: 0.5 ECT EMG (sec): 30 ECT EEG (sec): 50 ECT treatment type: bilateral MMSE Total Score (Max = 21): 21 Next ECT date: 12/09/17 Next ECT time: 08:00 Home medications: Medication Instructions Recorded Gabapentin [Neurontin 100 MG (*)] 100 mg PO TID 11/01/17 Levothyroxine [Synthroid 50 mcg 50 mcg PO DAILY06 11/01/17 (*)] [place] Carbonate [[place] 600 mg PO TID 11/01/17 Carbonate 600 mg cap (*)] Methylphenidate HCl [Ritalin 20mg 20 mg PO QID 11/01/17 (*)] QUEtiapine FUMARATE [Seroquel 50 50 mg PO DAILY 11/01/17 mg (*)] lamoTRIgine [Lamotrigine] 200 mg PO DAILY 11/01/17 Medication review: completed Current treatment plan: acute phase Treatment plan frequency: 3 times per week ECT narrative: Pt presents for continued acute course ECT. He has shown significant improvement since last treatment. Much more fluent, communicative. Affect remains flat. Offers no c/o's. Remains focused on leaving the hospital. Scored 21/21 on MMSE this morning again. Able to answer all questions in "time out" approp. Slept well last night. Underwent bilateral ECT without complication.
[2017-11-29] MEDS: LEVOTHYROXINE 50 MCG TAB PO SCH (10:25)
[2017-11-29] MEDS: LORazepam 0.5 MG TAB PO SCH ×2 (10:25→20:03)
[2017-11-30] MEDS: LORazepam 0.5 MG TAB PO SCH ×2 (08:19→20:01)
[2017-11-30] MEDS: LEVOTHYROXINE 50 MCG TAB PO SCH (08:20)
--- NOTE | 2017-11-30 12:48 | SOAPPROG ---
SOAP Progress Note Assessment/Plan: Assessment: 36yo with catatonia improving with ECT 11/30/17 13:29 per staff, slept 11hr. more interactive recently. on interview, pt in hosp gowns, fair eye contact, nml speech rate/vol but little spontaneity. brief responses. did not appear responding to IS, denied any AH/VH or any SI. affect flattened. mood "average...I feel ready to be discharged". reports attending "some" groups, thinks perhaps "75%" better since ECT. denied any physical complaints or med s/e. PLAN: cont current meds and ECT Objective: Vital Signs Temp Pulse Resp BP Pulse Ox 36.4 C 73 14 118/68 94 11/29/17 20:00 11/30/17 06:55 11/30/17 06:55 11/30/17 06:55 11/30/17 06:55 Laboratory Results 11/11/17 06:00 11/29/17 11/30/17 12/01/17 05:59 05:59 05:59 Intake Total 500 1300 800 Balance 500 1300 800 - Time Spent With Patient Time Spent With Patient: 15min - Pending Discharge Pending Discharge Within 24 Hours: No Pending Discharge Within 48 Hours: No ICD10 Worksheet Patient Problems: Problems Problem Status Onset Psychotic disorder Acute Schizoaffective disorder Acute Bipolar disorder Acute
[2017-12-01] MEDS: LORazepam 0.5 MG TAB PO SCH ×2 (08:36→16:09)
[2017-12-01] MEDS: LEVOTHYROXINE 50 MCG TAB PO SCH (08:36)
--- NOTE | 2017-12-01 23:24 | SOAPPROG ---
[facility] Progress Note Assessment/Plan: Assessment: 36yo with catatonia improving with ECT 11/30/17 13:29 per staff, slept 11hr. more interactive recently. on interview, pt in hosp gowns, fair eye contact, nml speech rate/vol but little spontaneity. brief responses. did not appear responding to IS, denied any AH/VH or any SI. affect flattened. mood "average...I feel ready to be discharged". reports attending "some" groups, thinks perhaps "75%" better since ECT. denied any physical complaints or med s/e. PLAN: cont current meds and ECT 12/01/17 15:00 per staff, slept 8hr. flat. states it was a "long day" today. "I guess so" regarding ECT helpful for him. states he's thinking about his family and going home. has ECT in AM. no anxiety. no physical complaints. pt calm, cooperative, good EC. restricted/blunted affect and mood is "about like this" (apparently referring to his flat demeanor). linear but brief responses to questions. no thought blocking, no evid of RIS. denied SI or AH/ VH. i/j seem fair. cognition seems intact. Plan: cont current meds and ECT. likely d/c home soon Objective: Vital Signs Temp Pulse Resp BP Pulse Ox 36.4 C 68 14 124/64 H 95 11/30/17 20:00 12/01/17 06:30 12/01/17 06:30 12/01/17 06:30 12/01/17 06:30 Laboratory Results 11/11/17 06:00 11/30/17 12/01/17 12/02/17 05:59 05:59 05:59 Intake Total 1300 1800 850 Balance 1300 1800 850 - Time Spent With Patient Time Spent With Patient: 10min - Pending Discharge Pending Discharge Within 24 Hours: No Pending Discharge Within 48 Hours: No ICD10 Worksheet Patient Problems: Problems Problem Status Onset Psychotic disorder Acute Schizoaffective disorder Acute Bipolar disorder Acute
[2017-12-02] MEDS ORDERED: ONDANSETRON DISINTEGRATING 4 MG TAB PO PRN (05:30)
[2017-12-02] MEDS ORDERED: CITRIC ACID/SODIUM CITRATE 30 ML UDCUP PO PRN (05:30)
[2017-12-02] MEDS ORDERED: NS 1,000 ML IV PRN (05:30)
[2017-12-02] MEDS ORDERED: MIDAZOLAM 2 MG/2 ML VIAL ONE (06:48)
[2017-12-02] MEDS ORDERED: ONDANSETRON 4 MG/2 ML VIAL ONE (06:48)
[2017-12-02] MEDS ORDERED: fentaNYL 100 MCG/2 ML INJ ONE (06:48)
[2017-12-02] MEDS ORDERED: GLYCOPYRROLATE 0.2 MG/1 ML VIAL ONE (06:48)
[2017-12-02] MEDS ORDERED: KETOROLAC 30 MG/1 ML SDV ONE (06:48)
[2017-12-02] MEDS ORDERED: ETOMIDATE 20 MG/10 ML VIAL ONE (06:49)
[2017-12-02] MEDS ORDERED: LORazepam 2 MG/ML INJ ONE (06:49)
[2017-12-02] MEDS ORDERED: ROCURONIUM 50 MG/5 ML VIAL ONE (06:49)
[2017-12-02] MEDS ORDERED: SUCCINYLCHOLINE CHLORIDE 200 MG/10 ML VIAL ONE (06:49)
[2017-12-02] MEDS ORDERED: ONDANSETRON DISINTEGRATING 4 MG TAB ONE (07:24)
[2017-12-02] MEDS ORDERED: CITRIC ACID/SODIUM CITRATE 30 ML UDCUP ONE (07:25)
--- NOTE | 2017-12-02 08:43 | PDANEPAE ---
ECT Pre Anesthetic Evaluation Allergies/Adverse Reactions: No Known Allergies Allergy (Unverified 10/31/17 15:09) Patient ID confirmed: Yes H&P reviewed: Yes Pre-anesthetic history reviewed: Yes Heart: regular rate and rhythym, no murmur, rub, or gallop Lungs: no respiratory distress, clear to auscultation Mallampati Score: Class 3 ASA Status: II Home Medications: Medication Instructions Recorded Gabapentin [Neurontin 100 MG (*)] 100 mg PO TID 11/01/17 Levothyroxine [Synthroid 50 mcg 50 mcg PO DAILY06 11/01/17 (*)] [place] Carbonate [[place] 600 mg PO TID 11/01/17 Carbonate 600 mg cap (*)] Methylphenidate HCl [Ritalin 20mg 20 mg PO QID 11/01/17 (*)] QUEtiapine FUMARATE [Seroquel 50 50 mg PO DAILY 11/01/17 mg (*)] lamoTRIgine [Lamotrigine] 200 mg PO DAILY 11/01/17 Medication review: completed Patient interviewed: Yes Patient examined: Yes Anesthetic plan discussed with patient: Yes Anesthetic risks discussed with patient: Yes ECT Pre-Anesthetic History - Height & Weight Height: 190.5 cm Weight: 97.023 kg BMI: 26.74 - Anesthesia History Hx Anesthesia Complications (with details): none Family Hx Anesthesia Complications: none - Medications In the Past 6 Months the Patient Has Taken: Thyroid Medication, Tranquilizers - Tobacco/Alcohol/Drug Use Smoking Status: Never smoked Alcohol Use: No - Prior Surgeries/Hospitalizations Prior Surgeries: none Prior Medical Hospitalizations: none - Pulmonary History ECT Hx Asthma: No Hx Oxygen in Use at Home: No - Cardiovascular History Hx Hypertension: No Hx Arrhythmias: No Hx Palpitations: No Hx Chest Pain: No Hx Coronary Artery / Peripheral Vascular Disease: No Hx Blood Clot: No - Neurologic History Hx Cerebrovascular Accident: No Hx CT Scan Or MRI Of The Brain: No Hx Epilepsy, Convulsions, Seizures, Or Blackouts: No Hx Frequent Or Severe Headaches: No Hx Numbness: No Hx Neurologic Disorder: No - Dental History Current Dental Issues: None - Endocrine History Hx Diabetes: No Hx Thyroid Problems: Yes Endocrine History Comment: Takes Levothyroxine - Renal/Urologic History Hx Renal Disorders: No Hx Urinary Tract Problems: No - Liver History Hx Hepatic Disorders: No - Cancer History Hx Cancer: No - Hematology History Hx Unexplained Bleeding Of Any Type: No Hx Ease Of Bruising: No Hx Anemia: No - Gastrointestinal History Hx Gastroesophogeal Reflux Disease: No Hx Ulcers: No Hx Hiatal Hernia: No Hx Difficulty Swallowing: No - Musculoskeletal Hisory Hx Chronic Pain: No Hx Arthritis: No - Opthalmic History Hx Glaucoma: No Visual Assistive Devices: None Hx Opthalmic Disorders: No - Other Health History Physical Disabililty: No Recent Cough, Cold, or Fever: No Significant Weight Loss In The Last 4 Months: No Possible the Patient Might be : No
--- NOTE | 2017-12-02 08:44 | PDECTPN ---
ECT Progress Note Patient Problems: Problems Problem Status Onset Code Psychotic disorder Acute F29 Schizoaffective disorder Acute F25.9 Bipolar disorder Acute F31.9 Date: 12/02/17 ECT provider: Adan Whelan Anesthesia: Ej Vanegas Stimulus dose (%): 60 Pulse width: 0.5 ECT EMG (sec): 23 ECT EEG (sec): 43 ECT treatment type: bilateral QIDS-SR Total Score: 9 QIDS-SR Question #12 Score: 0 MMSE Total Score (Max = 21): 20 Home medications: Medication Instructions Recorded Gabapentin [Neurontin 100 MG (*)] 100 mg PO TID 11/01/17 Levothyroxine [Synthroid 50 mcg 50 mcg PO DAILY06 11/01/17 (*)] [place] Carbonate [[place] 600 mg PO TID 11/01/17 Carbonate 600 mg cap (*)] Methylphenidate HCl [Ritalin 20mg 20 mg PO QID 11/01/17 (*)] QUEtiapine FUMARATE [Seroquel 50 50 mg PO DAILY 11/01/17 mg (*)] lamoTRIgine [Lamotrigine] 200 mg PO DAILY 11/01/17 Medication review: completed Current treatment plan: acute phase Treatment plan frequency: 3 times per week ECT narrative: Pt presents for continued acute course ECT. He continues to improve though remains autistic in his interactions. Struggles to communicate meaningfully. Has been stuck on the phrase "I want to go home" for the past five days. Insistent that he can care for himself. Unable to formulate plan for support as an outpatient. Sleep is stable. Eating and drinking well. Hygiene remains poor. Underwent bilateral ECT without complication.
[2017-12-02] MEDS: LEVOTHYROXINE 50 MCG TAB PO SCH (11:02)
[2017-12-02] MEDS: LORazepam 0.5 MG TAB PO SCH ×2 (11:02→20:57)
[2017-12-03] MEDS: LORazepam 0.5 MG TAB PO SCH ×2 (08:35→20:40)
[2017-12-03] MEDS: LEVOTHYROXINE 50 MCG TAB PO SCH (10:03)
--- NOTE | 2017-12-03 14:02 | SOAPPROG ---
SOAP Progress Note Assessment/Plan: Assessment: Plan: 11/26/17 14:00 Catatonia: Improving with ECT. CCM. Mood/psychosis: Will likely see more prominent sx's as the catatonia improves. Will consider reinstituting medications at that time. 11/28/17 15:55 Catatonia: Continued improvement. Not ready for d/c at this point due to continued lack of participation in ADL's, social withdrawal and continued catatonic poverty of thought and avolition. CCM. 12/03/17 14:01 Catatonia: Continued improvement. Will [facility], start lithium tonight. Subjective: Pt seen, discussed with staff. Reports feeling "good." Lying in bed doing nothing when I enter the room. Able to engage and communicate effectively. Offers no c/o's. Mood is "better" and cognition is stable per pt report. Objective: Vital Signs Temp Pulse Resp BP Pulse Ox 36.5 C 75 14 118/59 L 98 12/03/17 06:36 12/03/17 06:36 12/03/17 06:36 12/03/17 06:36 12/03/17 06:36 Laboratory Results 11/11/17 06:00 12/02/17 12/03/17 12/04/17 05:59 05:59 05:59 Intake Total 850 2600 Balance 850 2600 MSE: Calm, coop. Affect is blunted, stable, approp. Mood is "fine." TP linear though abbreviated. Less delay, though continues to demonstrate poverty of thought. - Time Spent With Patient Time Spent With Patient: 25" ICD10 Worksheet Patient Problems: Problems Problem Status Onset Psychotic disorder Acute Schizoaffective disorder Acute Bipolar disorder Acute
[2017-12-03] MEDS: LITHIUM CARBONATE ER 450 MG TAB PO SCH (20:51)
[2017-12-04] MEDS ORDERED: CITRIC ACID/SODIUM CITRATE 30 ML UDCUP PO PRN (05:30)
[2017-12-04] MEDS ORDERED: ONDANSETRON DISINTEGRATING 4 MG TAB PO PRN (05:30)
[2017-12-04] MEDS ORDERED: NS 1,000 ML IV PRN (05:30)
[2017-12-04] MEDS ORDERED: ONDANSETRON 4 MG/2 ML VIAL ONE (06:06)
[2017-12-04] MEDS ORDERED: KETOROLAC 30 MG/1 ML SDV ONE (06:06)
[2017-12-04] MEDS ORDERED: MIDAZOLAM 2 MG/2 ML VIAL ONE (06:06)
[2017-12-04] MEDS ORDERED: fentaNYL 100 MCG/2 ML INJ ONE (06:06)
[2017-12-04] MEDS ORDERED: ETOMIDATE 20 MG/10 ML VIAL ONE (06:07)
[2017-12-04] MEDS ORDERED: LABETALOL HCL 5 MG/ML 20 ML MDV ONE (06:07)
[2017-12-04] MEDS ORDERED: GLYCOPYRROLATE 0.2 MG/1 ML VIAL ONE (06:07)
[2017-12-04] MEDS ORDERED: ROCURONIUM 50 MG/5 ML VIAL ONE (06:08)
[2017-12-04] MEDS ORDERED: SUCCINYLCHOLINE CHLORIDE 200 MG/10 ML VIAL ONE (06:08)
[2017-12-04] MEDS ORDERED: LORazepam 2 MG/ML INJ ONE (06:08)
[2017-12-04] MEDS ORDERED: CITRIC ACID/SODIUM CITRATE 30 ML UDCUP ONE (06:52)
[2017-12-04] MEDS ORDERED: ONDANSETRON DISINTEGRATING 4 MG TAB ONE (06:52)
[2017-12-04] MEDS: LORazepam 0.5 MG TAB PO SCH ×3 (07:36→20:25)
--- NOTE | 2017-12-04 07:58 | PDECTPN ---
ECT Progress Note Patient Problems: Problems Problem Status Onset Code Psychotic disorder Acute F29 Schizoaffective disorder Acute F25.9 Bipolar disorder Acute F31.9 Date: 12/04/17 ECT provider: Adan Whelan Anesthesia: Ej Vanegas Stimulus dose (%): 60 Pulse width: 0.5 ECT EMG (sec): 32 ECT EEG (sec): 62 ECT treatment type: bilateral QIDS-SR Total Score: 7 QIDS-SR Question #12 Score: 1 MMSE Total Score (Max = 21): 20 Next ECT date: 12/06/17 Next ECT time: 07:45 Home medications: Medication Instructions Recorded Gabapentin [Neurontin 100 MG (*)] 100 mg PO TID 11/01/17 Levothyroxine [Synthroid 50 mcg 50 mcg PO DAILY06 11/01/17 (*)] [place] Carbonate [[place] 600 mg PO TID 11/01/17 Carbonate 600 mg cap (*)] Methylphenidate HCl [Ritalin 20mg 20 mg PO QID 11/01/17 (*)] QUEtiapine FUMARATE [Seroquel 50 50 mg PO DAILY 11/01/17 mg (*)] lamoTRIgine [Lamotrigine] 200 mg PO DAILY 11/01/17 Medication review: completed Current treatment plan: acute phase Treatment plan frequency: 3 times per week ECT narrative: Pt presents for continued acute course ECT. He has been doing well, though continues to perseverate on wanting to discharge. Unable to remember family meeting Saturday in which we discussed treatment and d/c plans. Calm and cooperative, no behavioral issues. Eating and drinking adequately. Underwent bilateral ECT without complication.
[2017-12-04] MEDS: LEVOTHYROXINE 50 MCG TAB PO SCH (09:02)
[2017-12-04] MEDS: LITHIUM CARBONATE ER 450 MG TAB PO SCH (20:25)
--- NOTE | 2017-12-05 08:12 | SOAPPROG ---
SOAP Progress Note Assessment/Plan: Assessment: Catatonia - improving Bipolar Disorder Patient has had some residual catatonic symptoms over past several days, but less severe/frequent. Patient has improved insight. Plan: Ativan 1mg BID [place] 450mg QHS ECT tomorrow AM Coordinate discharge planning and possible transition to outpatient ECT with family and outpatient psychiatrist Dr. Levy Monitor behavior 12/05/17 08:12 Subjective: CC: "I'm OK" Patient reports feeling 'OK.' Denies pain or headache. Reports he agrees that ECT is helpful. Reports feeling less anxious and more hopeful. Reports he is willing to return home 'to gather up my stuff' and then live with mother or ex- or other relatives. Denies feeling angry, agitated, or hopeless. Objective: Vital Signs Temp Pulse Resp BP Pulse Ox 36.7 C 73 16 106/57 L 97 12/05/17 06:36 12/05/17 06:36 12/05/17 06:36 12/05/17 06:36 12/05/17 06:36 Laboratory Results 11/11/17 06:00 12/04/17 12/05/17 12/06/17 05:59 05:59 05:59 Intake Total 480 1445 Balance 480 1445 Alert WM. Calm and cooperative. Distracted and preoccupied at times. Speech RRR few words. Mood 'OK.' Affect restricted. Denies SI or HI. Thoughts briefly organized with limited information. Denies AH or paranoia. Intact orientation to month, year, hospital. Improved insight. Staff report patient slept 8.5 hours. Quiet and isolating to room. More interactive with staff with brief conversations. Patient had episodic residual catatonic symptoms over past 2-3 days (brief mutism and staring) but much less severe than previous. Ate 0%, 100%, 75% of meals and 1445cc fluid. - Time Spent With Patient Time Spent With Patient: 15 minutes - Pending Discharge Pending Discharge Within 24 Hours: Yes Pending Discharge Date: 12/06/17 Pending Discharge Time: 11:00 ICD10 Worksheet Patient Problems: Problems Problem Status Onset Psychotic disorder Acute Schizoaffective disorder Acute Bipolar disorder Acute
[2017-12-05] MEDS: LORazepam 0.5 MG TAB PO SCH ×2 (09:16→20:07)
[2017-12-05] MEDS: LEVOTHYROXINE 50 MCG TAB PO SCH (09:18)
[2017-12-05] MEDS: LITHIUM CARBONATE ER 450 MG TAB PO SCH (20:10)
[2017-12-06] MEDS ORDERED: MIDAZOLAM 2 MG/2 ML VIAL ONE (05:32)
[2017-12-06] MEDS ORDERED: KETOROLAC 30 MG/1 ML SDV ONE (05:33)
[2017-12-06] MEDS ORDERED: ETOMIDATE 20 MG/10 ML VIAL ONE (05:33)
[2017-12-06] MEDS ORDERED: LORazepam 2 MG/ML INJ ONE (05:33)
[2017-12-06] MEDS ORDERED: ONDANSETRON 4 MG/2 ML VIAL ONE (05:33)
[2017-12-06] MEDS ORDERED: ROCURONIUM 50 MG/5 ML VIAL ONE (05:33)
[2017-12-06] MEDS ORDERED: GLYCOPYRROLATE 0.2 MG/1 ML VIAL ONE (05:33)
[2017-12-06] MEDS ORDERED: LABETALOL HCL 5 MG/ML 20 ML MDV ONE (05:33)
[2017-12-06] MEDS ORDERED: fentaNYL 100 MCG/2 ML INJ ONE (05:33)
[2017-12-06] MEDS ORDERED: SUCCINYLCHOLINE CHLORIDE 200 MG/10 ML VIAL ONE (05:34)
[2017-12-06] MEDS ORDERED: ONDANSETRON DISINTEGRATING 4 MG TAB PO PRN (05:58)
[2017-12-06] MEDS ORDERED: CITRIC ACID/SODIUM CITRATE 30 ML UDCUP PO PRN (05:58)
[2017-12-06] MEDS ORDERED: NS 1,000 ML IV PRN (05:58)
[2017-12-06] MEDS ORDERED: ONDANSETRON DISINTEGRATING 4 MG TAB ONE (07:24)
[2017-12-06] MEDS ORDERED: CITRIC ACID/SODIUM CITRATE 30 ML UDCUP ONE (07:24)
--- NOTE | 2017-12-06 08:06 | PDECTPN ---
ECT Progress Note Patient Problems: Problems Problem Status Onset Code Psychotic disorder Acute F29 Schizoaffective disorder Acute F25.9 Bipolar disorder Acute F31.9 Date: 12/06/17 ECT provider: Adan Whelan Anesthesia: Ej Vanegas Stimulus dose (%): 60 Pulse width: 0.5 ECT EMG (sec): 32 ECT EEG (sec): 62 ECT treatment type: bilateral QIDS-SR Total Score: 7 QIDS-SR Question #12 Score: 1 MMSE Total Score (Max = 21): 21 Next ECT date: 12/11/17 Next ECT time: 14:00 O/P psychiatrist follow up: direct communication Home medications: Medication Instructions Recorded Gabapentin [Neurontin 100 MG (*)] 100 mg PO TID 11/01/17 Levothyroxine [Synthroid 50 mcg 50 mcg PO DAILY06 11/01/17 (*)] [place] Carbonate [[place] 600 mg PO TID 11/01/17 Carbonate 600 mg cap (*)] Methylphenidate HCl [Ritalin 20mg 20 mg PO QID 11/01/17 (*)] QUEtiapine FUMARATE [Seroquel 50 50 mg PO DAILY 11/01/17 mg (*)] lamoTRIgine [Lamotrigine] 200 mg PO DAILY 11/01/17 Medication review: completed Current treatment plan: acute phase Treatment plan frequency: 3 times per week ECT narrative: Pt presents for continued acute course ECT. He continues to improve with more fluent and spontaneous interactions. Able to actively participate in d/c planning though remains fairly stubborn about needing to go back to the house he previously lived in despite being told repeatedly, including again by me this morning, that his belongings were moved out of there. He agrees with me to go to his mother's home temporarily after d/c to complete ECT and make longer term plans. Underwent bilateral ECT without complication.
[2017-12-06] MEDS: LEVOTHYROXINE 50 MCG TAB PO SCH (09:53)
[2017-12-06] MEDS: LORazepam 0.5 MG TAB PO SCH (09:53)
[2017-12-06 11:16] VITALS: BP 106/61
--- NOTE | 2017-12-11 15:06 | PDECTPN ---
ECT Progress Note Patient Problems: Problems Problem Status Onset Code Bipolar disorder Acute F31.9 Psychotic disorder Acute F29 Schizoaffective disorder Acute F25.9 Date: 12/11/17 ECT provider: Adan Whelan Anesthesia: Ej Vanegas Stimulus dose (%): 65 Pulse width: 0.5 ECT EMG (sec): 32 ECT EEG (sec): 72 ECT treatment type: bilateral QIDS-SR Total Score: 7 QIDS-SR Question #12 Score: 1 MMSE Total Score (Max = 21): 21 Next ECT date: 12/18/17 Next ECT time: 13:30 O/P psychiatrist follow up: direct communication Home medications: Medication Instructions Recorded LORazepam [Ativan (*)] 1 mg PO HS #30 tab 12/06/17 Levothyroxine [Synthroid 50 mcg 50 mcg PO DAILY06 #30 tab 12/06/17 (*)] [place] Carbonate ER [[place] 900 mg PO HS #60 tab 12/06/17 450 mg (*)] Medication review: completed Current treatment plan: maintenance Treatment plan frequency: 1 time per week ECT narrative: Pt presents for first maintenance ECT treatment. He reports doing "fine." Remains somewhat reserved, but engaging and conversant. He is agreeable to continuing the lithium and weekly maintenance ECT (the latter) for at least four treatments total. Underwent bilateral ECT without complication.
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
== END 2017-12-06 13:30 | disposition home or self-care (01) | DRG 885 ==
LOC: BBEH 11-01 02:05
PROVIDERS: ADMIT Psychiatry & Neurology Psychiatry; ATTEND Psychiatry & Neurology Psychiatry
PROC: GZB4ZZZ Other Electroconvulsive Therapy (ICD-10-PCS; principal; 2017-11-22)
DX: F31.64 Bipolar disorder, current episode mixed, severe, with psychotic features (principal); F20.2 Catatonic schizophrenia; Z91.128 Patient's intentional underdosing of medication regimen for other reason; T43.596A Underdosing of other antipsychotics and neuroleptics, initial encounter; F51.13 Hypersomnia due to other mental disorder; I44.0 Atrioventricular block, first degree; E03.9 Hypothyroidism, unspecified; L70.9 Acne, unspecified
CPT/HCPCS: 80305; 97165-GO; 97530-GO; 97535-GO; G0480; J0330; J1885; J2060; J2250; J2405; J3010

== ENCOUNTER 2017-11-07 11:25 | Emergency (ER) | payer OTHER ==
[2017-11-07] MEDS ORDERED: NS 1,000 ML IV ONE (11:35)
[2017-11-07 11:44] LABS: PLATELET COUNT 283 10^3/uL (150-400)
--- NOTE | 2017-11-07 11:46 | EDPHY ---
H & P Stated Complaint: R/O dehydration, lithium toxicity. from 3N Time Seen by Provider: 11/07/17 11:33 HPI/ROS: CHIEF COMPLAINT: "I'm fine" HISTORY OF PRESENT ILLNESS: 36-year-old male history of bipolar disorder currently hospitalized at [address] arrives via ambulance for concerns over volume depletion in to obtain lithium levels. He has recently started on lithium and inconsistent oral intake, needing prompting to attend meal wheals. He is currently on short-term certification for grave disability. Nursing staff was unable to draw blood and therefore sent to the ER for evaluation to obtain lithium levels, to provide IV hydration. When I interview the patient he has no complaints of pain in the ER. He denies suicidal homicidal ideation. REVIEW OF SYSTEMS: A ten point review of systems was performed and is negative with the exception of the items mentioned in the HPI PAST MEDICAL & SURGICAL HISTORY: Bipolar disorder. SOCIAL HISTORY:Denies acute alcohol or drug use. PHYSICAL EXAM (Prior to examination, patient consented to physical exam, hands were washed and my usual and customary physical exam procedures followed) 1) GENERAL: Well-developed, well-nourished, withdrawn, quiet.. 2) HEAD: Normocephalic, atraumatic 3) HEENT: Pupils equal, round, reactive to light bilaterally. Sclera anicteric. [Nasopharynx, oropharynx, clear, no lesions. Dry mucous membrane 4) NECK: Full range of motion, no meningeal signs. 5) LUNGS: Clear auscultation bilaterally, no wheezes, no rhonchi, no retractions. 6) HEART: Regular rate and rhythm, no murmur, no heave, no gallop. 7) ABDOMEN: No guarding, no rebound, no focal tenderness, negative McBurney's, negative Lynn's, negative Rovsing's, negative peritoneal sign, 8) MUSCULOSKELETAL: No signs of injury 9) BACK: , no visual or palpable abnormality. 10) SKIN: No rash, no petechiae. 11) Psychiatric: Patient is oriented X 3, there is no agitation. DIFFERENTIAL DIAGNOSIS: In no particular include but not limited to lithium toxicity, volume depletion, acute renal failure - Personal History Current Tetanus/Diphtheria Vaccine: Unsure Current Tetanus Diphtheria and Acellular Pertussis (TDAP): Unsure - Medical/Surgical History Hx Asthma: No Hx Chronic Respiratory Disease: No Hx Diabetes: No Hx Cardiac Disease: No Hx Renal Disease: No Hx Cirrhosis: No Hx Alcoholism: No Hx HIV/AIDS: No Hx Splenectomy or Spleen Trauma: No Other PMH: BIPOLAR - Social History Smoking Status: Never smoked Constitutional: Initial Vital Signs Temperature (C) 36.8 C 11/07/17 11:30 Heart Rate 74 11/07/17 11:30 Respiratory Rate 16 11/07/17 11:30 Blood Pressure 119/77 11/07/17 11:30 O2 Sat (%) 97 11/07/17 11:30 O2 Delivery Mode Room Air Allergies/Adverse Reactions: No Known Allergies Allergy (Unverified 10/31/17 15:09) Home Medications: Medication Instructions Recorded Gabapentin [Neurontin 100 MG (*)] 100 mg PO TID 11/01/17 Levothyroxine [Synthroid 50 mcg 50 mcg PO DAILY06 11/01/17 (*)] [place] Carbonate [[place] 600 mg PO TID 11/01/17 Carbonate 600 mg cap (*)] Methylphenidate HCl [Ritalin 20mg 20 mg PO QID 11/01/17 (*)] QUEtiapine FUMARATE [Seroquel 50 50 mg PO DAILY 11/01/17 mg (*)] lamoTRIgine [Lamotrigine] 200 mg PO DAILY 11/01/17 Medical Decision Making ED Course/Re-evaluation: 11:40 a.m.: Discussed the case with secondary supervising physician Dr. Cameron in the ER who received a phone call from the patient's psychiatrist at [address] [place] [address] earlier today. Plan will be IV hydration, check laboratory studies. Plan will then be discharged back to [address] [place] [address] if no gross abnormality is noted on diagnostic studies. 12:25 p.m.: Re-evaluation . The patient has no evidence of acute renal failure or pre renal azotemia. His lithium level is subtherapeutic. He has been received IV hydration. Plan will be discharge back to [address] [place] [address]. 12:47 p.m.: Consultation with Dr Blandon psychiatrist [address] [place] [address] request patient be transferred back to [address] [place] [address], accepts patient for transfer.. PAULOALA paperwork completed. Patient remains calm while in the ER. - Data Points Laboratory Results: Laboratory Results 11/07/17 11:20 11/07/17 11:20 Medications Given: Discontinued Medications Sodium Chloride (Ns) 1,000 mls @ 0 mls/hr IV ONCE ONE PRN Reason: Wide Open Stop: 11/07/17 11:36 Last Admin: 11/07/17 11:50 Dose: 1,000 mls Departure - Departure Disposition: Home, Routine, Self-Care Clinical Impression: Bipolar disorder Qualifiers: Active/Remission status: remission status unspecified Qualified Code(s): F31.9 - Bipolar disorder, unspecified Condition: Good Instructions: Bipolar Disorder (ED) Referrals: NONE *PRIMARY CARE P,. [Primary Care Provider] - As per Instructions
[2017-11-07 12:48] VITALS: BP 122/77
== END 2017-11-07 14:15 | disposition home or self-care (01) ==
LOC: EDUNIT# → EDBD
DX: F31.9 Bipolar disorder, unspecified (principal)

== ENCOUNTER 2017-11-20 11:27 | Emergency (ER) | payer OTHER ==
[2017-11-20] MEDS ORDERED: NS 1,000 ML IV ONE (11:28)
--- NOTE | 2017-11-20 11:35 | EDPHY ---
H & P Time Seen by Provider: 11/20/17 11:28 HPI/ROS: CHIEF COMPLAINT: Catatonia HISTORY OF PRESENT ILLNESS: The patient is a 36-year-old man with a history of bipolar disease and is currently on [address] [place] catatonic and mute. He mostly has been lying in bed but occasionally will pace. They have a court-ordered hold him there and began ECT therapy. They became concerned however that possibly because all of his lying he may have developed rhabdomyolysis. They sent him here for lab work and IV fluids and would like to have him back afterwards if there is no other indication for admission. The patient is cooperative but nonverbal. REVIEW OF SYSTEMS: Unable to obtain secondary to condition EXAM: GENERAL: Well-appearing, well-nourished and in no acute distress. HEAD: Atraumatic, normocephalic. EYES: Pupils equal round and reactive to light, extraocular movements intact, sclera anicteric, conjunctiva are normal. ENT: TMs normal, nares patent, oropharynx clear without exudates. Moist mucous membranes. NECK: Normal range of motion, supple without lymphadenopathy or JVD. LUNGS: Breath sounds clear to auscultation bilaterally and equal. No wheezes rales or rhonchi. HEART: Regular rate and rhythm without murmurs, rubs or gallops. ABDOMEN: Soft, nontender, normoactive bowel sounds. No guarding, no rebound. No masses appreciated. BACK: No CVA tenderness, no spinal tenderness, step-offs or deformities EXTREMITIES: Normal range of motion, no pitting or edema. No clubbing or cyanosis. NEUROLOGICAL: Cranial nerves II through XII grossly intact. Normal speech, normal gait. 5/5 strength, normal movement in all extremities, normal sensation PSYCH: Normal mood, normal affect. SKIN: Several chronic wounds that appear to be consistent with picking. Warm, dry, normal turgor, no visible rashes or lesions. Source: Patient Exam Limitations: No limitations - Medical/Surgical History Hx Asthma: No Hx Chronic Respiratory Disease: No Hx Diabetes: No Hx Cardiac Disease: No Hx Renal Disease: No Hx Cirrhosis: No Hx Alcoholism: No Hx HIV/AIDS: No Hx Splenectomy or Spleen Trauma: No Other PMH: BIPOLAR - Family History Significant Family History: No pertinent family hx - Social History Smoking Status: Never smoked Alcohol Use: None Constitutional: Initial Vital Signs Temperature (C) 36.9 C 11/20/17 11:31 Heart Rate 93 11/20/17 11:31 Respiratory Rate 18 11/20/17 11:31 Blood Pressure 147/93 H 11/20/17 11:31 O2 Sat (%) 100 11/20/17 11:31 O2 Delivery Mode Room Air Allergies/Adverse Reactions: No Known Allergies Allergy (Unverified 10/31/17 15:09) Home Medications: Medication Instructions Recorded Gabapentin [Neurontin 100 MG (*)] 100 mg PO TID 11/01/17 Levothyroxine [Synthroid 50 mcg 50 mcg PO DAILY06 11/01/17 (*)] [place] Carbonate [[place] 600 mg PO TID 11/01/17 Carbonate 600 mg cap (*)] Methylphenidate HCl [Ritalin 20mg 20 mg PO QID 11/01/17 (*)] QUEtiapine FUMARATE [Seroquel 50 50 mg PO DAILY 11/01/17 mg (*)] lamoTRIgine [Lamotrigine] 200 mg PO DAILY 11/01/17 Medical Decision Making ED Course/Re-evaluation: 12:30 p.m. the patient remains calm and quiet and nontoxic-appearing. His creatinine is slightly elevated. He has been treated with IV fluids. His CK is not elevated. This point he is safe to return back to [address] [place] [address]. I have paged the Psychiatry service. 12:40 p.m. I spoke with Dr. Styles who accepted the patient back to [address] [place] [address]. Differential Diagnosis: Partial list of the Differential diagnosis considered include but were not limited to; dehydration, rhabdo, and although unlikely based on the history and physical exam, I also considered infection, head injury. - Data Points Laboratory Results: Laboratory Results 11/20/17 11:50 11/20/17 11:50 11/20/17 11/20/17 11:50 11:50 WBC 9.74 10^3/uL H 10^3/uL (3.80-9.50) RBC 5.29 10^6/uL 10^6/uL (4.40-6.38) Hgb 15.8 g/dL g/dL (13.7-17.5) Hct 45.8 % % (40.0-51.0) MCV 86.6 fL fL (81.5-99.8) MCH 29.9 pg pg (27.9-34.1) MCHC 34.5 g/dL g/dL (32.4-36.7) RDW 12.5 % % (11.5-15.2) Plt Count 278 10^3/uL 10^3/uL (150-400) MPV 10.1 fL fL (8.7-11.7) Neut % (Auto) 79.4 % H % (39.3-74.2) Lymph % (Auto) 13.3 % L % (15.0-45.0) [place] % (Auto) 5.4 % % (4.5-13.0) Eos % (Auto) 1.1 % % (0.6-7.6) Baso % (Auto) 0.5 % % (0.3-1.7) Nucleat RBC Rel Count 0.0 % % (0.0-0.2) Absolute Neuts (auto) 7.72 10^3/uL H 10^3/uL (1.70-6.50) Absolute Lymphs (auto) 1.30 10^3/uL 10^3/uL (1.00-3.00) Absolute Monos (auto) 0.53 10^3/uL 10^3/uL (0.30-0.80) Absolute Eos (auto) 0.11 10^3/uL 10^3/uL (0.03-0.40) Absolute Basos (auto) 0.05 10^3/uL 10^3/uL (0.02-0.10) Absolute Nucleated RBC 0.00 10^3/uL 10^3/uL (0-0.01) Immature Gran % 0.3 % % (0.0-1.1) Immature Gran # 0.03 10^3/uL 10^3/uL (0.00-0.10) Sodium 144 mEq/L mEq/L (135-145) Potassium 4.6 mEq/L mEq/L (3.5-5.2) Chloride 108 mEq/L mEq/L (97-110) Carbon Dioxide 24 mEq/l mEq/l (22-31) Anion Gap 12 mEq/L mEq/L (8-16) BUN 14 mg/dL mg/dL (7-23) Creatinine 1.3 mg/dL mg/dL (0.7-1.3) Estimated GFR > 60 Glucose 97 mg/dL mg/dL (70-100) Calcium 10.2 mg/dL mg/dL (8.5-10.4) Creatine Kinase 41 IU/L IU/L (0-224) Medications Given: Discontinued Medications Sodium Chloride (Ns) 1,000 mls @ 0 mls/hr IV EDNOW ONE; Wide Open PRN Reason: Protocol Stop: 11/20/17 11:29 Last Admin: 11/20/17 12:04 Dose: 1,000 mls Departure - Departure Disposition: [facility] IP Clinical Impression: Catatonia Bipolar disorder Qualifiers: Active/Remission status: remission status unspecified Qualified Code(s): F31.9 - Bipolar disorder, unspecified Condition: Fair Instructions: Bipolar Disorder (ED) Referrals: Patient,NotPresent [Unknown] - As per Instructions
[2017-11-20 12:06] LABS: PLATELET COUNT 278 10^3/uL (150-400)
[2017-11-20 12:27] LABS: CREATINE KINASE 41 IU/L (0-224)
[2017-11-20 12:52] VITALS: BP 142/90
== END 2017-11-20 13:22 ==
LOC: EDUNIT#
DX: F20.2 Catatonic schizophrenia (principal); F31.9 Bipolar disorder, unspecified

== ENCOUNTER 2018-03-25 15:20 | Inpatient (IN) | payer OTHER ==
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
--- NOTE | 2018-03-25 21:37 | ASMTTCLDSP ---
TLC Discharge Disposition Disposition: Answers: Admit Discharge Concerns/Recommendations: Notes: Per directive and order from [facility] on-call psychiatrist, Miguel Whelan MD, Dr. Whelan agreed to accept pt for transfer admission to from [facility]. For inpatient Miguel Whelan MD admission, the following psychiatrist agreed to accept patient for admission to [facility] ([facility]): Date Signed: 03/25/2018 09:37 PM Electronically Signed By:Cathie Johns
[2018-03-25] MEDS ORDERED: LORazepam 0.5 MG TAB PO PRN (22:33)
[2018-03-25] MEDS ORDERED: OLANZapine DISINTEGR 10 MG TAB PO PRN (22:33)
[2018-03-25] MEDS ORDERED: ACETAMINOPHEN 325 MG TAB PO PRN (23:09)
[2018-03-25] MEDS ORDERED: MAGNESIUM HYDROXIDE 30 ML UDCUP PO PRN (23:09)
[2018-03-25] MEDS ORDERED: MAG HYDROX/AL HYDROX/SIMETH 30 ML UDCUP PO PRN (23:09)
[2018-03-25] MEDS ORDERED: NICOTINE POLACRILEX 2 MG GUM B PRN (23:09)
[2018-03-26] MEDS ORDERED: LEVOTHYROXINE 50 MCG TAB PO SCH (06:45)
[2018-03-26] MEDS ORDERED: THEOPHYLLINE ORAL SOLUTION 80 MG/15 ML UDCUP PO ONE (08:04)
[2018-03-26] MEDS ORDERED: CITRIC ACID/SODIUM CITRATE 30 ML UDCUP PO PRN (08:04)
[2018-03-26] MEDS ORDERED: ONDANSETRON DISINTEGRATING 4 MG TAB PO PRN (08:04)
[2018-03-26] MEDS ORDERED: HYDROCODONE/APAP 5/325 TAB PO PRN (08:05)
[2018-03-26] MEDS: LEVOTHYROXINE 50 MCG TAB PO SCH (09:09)
[2018-03-26] MEDS: LORazepam 1 MG TAB PO SCH ×3 (09:09→20:36)
[2018-03-26] MEDS: buPROPion XL 150 MG TAB PO SCH (09:09)
[2018-03-26] MEDS: MEMANTINE HCL 5 MG TAB PO SCH ×2 (09:09→20:36)
[2018-03-26] MEDS: NS 1,000 ML IV PRN (13:16)
--- NOTE | 2018-03-26 15:21 | BAPA ---
DATE OF SERVICE: 03/26/2018 REASON FOR ADMISSION: The patient is a 37-year-old male with a history of atypical bipolar disorder with psychosis and catatonia. He was admitted to our service from 11/01 to 12/06/2017, linda vences under the care of Dr. Sanchez. I consulted and then assumed the care of the patient when we b jeny ECT treatment. The patient responded well initially to inpatient ECT and then was transferred a t discharge to outpatient followup. He continued to hold his own with the resolution of the catatoni a, interacting more with his family, including his and kids, but plateaued. Attempts to increas e frequency of ECT were met with resistance from the patient as he stated numerous times that he want ed to discontinue treatment. He actually walked out of treatment and did not show up for treatment f or the final 4 treatments that we have attempted. Over this time, he continued to gradually decline. On the day prior to admission, the patient's mother called me personally on my cell to tell me that he had been sitting in one position in a chair for almost a day and was not eating, drinking, or int eracting. I instructed her to call EMS and have him taken to the local emergency department, which s he did. She dropped him off at [facility], who then contacted me the next morning. ey were agreeable to transferring the patient to [facility] so I that could reevaluate and possibly continue inpatient ECT. I visited with the patient today on the unit. He makes eye con tact and has some meaningful motions and movements, though is otherwise mute and does not interact ve rbally in any way. He is willing to complete the QIDS questionnaire and mini-mental status examinati on questionnaire, but then refuses to participate in ECT today. PAST PSYCHIATRIC HISTORY: Significant for a history of bipolar disorder, with current symptoms datin g to almost a year. He was hospitalized a little over a year ago in [place] for pillo and then after that time has just done poorly. He has had the current level of severe depression and catatonic zeke por for most of the last 8 months. He was previously treated by Dr. Levy, though, after leaving [facility], the patient and his mother stated they did not want to follow up with Dr. Levy, and I h ave been managing his medications during the ECT. He has a history of a suicide attempt in 2015 by alan pope. ALLERGIES: No known medical allergies. CURRENT MEDICATIONS: Bupropion XL 300 mg daily, Lorazepam 0.5 mg b.i.d., memantine 5 mg p.o. b.i.d., lithium carbonate 450 mg p.o. b.i.d., and Synthroid 50 mcg daily. PAST MEDICAL HISTORY: Noncontributory. SOCIAL HISTORY: The patient has recently over the last year. He has 3 young children, all under the age of 5. He still sees them on occasion, though, due to his extremely low functioning, th is is limited to him watching a sports practice or perhaps coming to his ex-'s home for an hour o r so. He has verbalized in the past several months that he wants to be more active in their lives an d wants things to be the way they used to be. The patient is currently unemployed. He reportedly guerra d a perfect score on his SAT and attended [employer] where he received a master's degree in finance, Carolyn whaley. 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 He currently has no activities on the Internet. SUBSTANCE ABUSE HISTORY: Noncontributory. FAMILY HISTORY: No family history of bipolar or catatonia is obtained. ADMISSION LABORATORY: No additional labs were drawn here, though I did review labs from [facility]. He initially came in with elevated BUN and creatinine, but these normalized on recheck. His labs were otherwise normal. MENTAL STATUS EXAMINATION: Examination reveals an unkempt male. He interacts poorly, maurice fink does make eye contact and somewhat nods his head in acknowledgement when I enter the room. He is completely mute and does not answer a single question. He is able to fill out the QIDS questionnaire by himself. It is difficult to assess his thought process, thought content, or level of orientation at this time. He does not appear to be delirious. IMPRESSION: Bipolar I disorder, most recent episode mixed, severe, with psychosis, with catatonic fe atures. Retarded catatonia. Recent divorce. Unemployment. The patient is a 37-year-old male with a history of bipolar disorder and recent protracted catatonia. He was progressing with electroconvulsive therapy when it was being done at least twice w moi, but, since he has been refusing that and then refusing to come altogether, he has deteriorated . He is now back to a retarded catatonic state and is completely unable to care for himself. He ref used electroconvulsive therapy today, so we will have to see if we can encourage him to continue to p articipate or whether or not I would need to seek a court order. PLAN: 1. Admit to the behavioral health services inpatient unit on an M1 hold. 2. Reinstitute previous outpatient medications including the memantine at 5 mg b.i.d. We will incre ase Ativan to 1 mg t.i.d. to better address catatonia. 3. We will engage the patient on a daily basis to attempt to foster a therapeutic relationship. We will also rely on the patient's mother, whom he has good relationship with, to help encourage him to participate in ECT treatment. Estimated length of stay is 7 to 10 days. /[id number]/MODL
--- NOTE | 2018-03-26 15:43 | PDMN ---
Medical Necessity Medical necessity: Pt meets inpt criteria per MD order and [facility] B-[id number], Bipolar Disorders, Adult: Inpatient Care. 37 y/o w/ Bipolar 1 disorder, mixed, severe, w/psychosis, w/catatonic features, on M1 Hold.
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
--- NOTE | 2018-03-26 17:41 | ASMTBHMTP ---
Master Treatment Plan Master Treatment Plan Answers: Mood Instability with for: Psychosis Date: 03/26/2018 Diagnosis on Admission: Bipolar I Disorder, current or most recent episode depressed, with psychotic features 296.54 (F31.5) Expected length of stay: 5-10 Reason for admission: Notes: Per [facility] evaluation, pt is a 37 year old male brought to [facility] by EMS voluntarily after he missed his ECT session today and his mother went to check on him and called 911. Unfortunately, mother arrived with patient and then left without our having access to a phone number. Pt's outpatient provider is unwilling to provide us with any information regarding his care at this hour. The pt himself is mute. Some information was provided by patient after ativan was given in ED to which patient was more responsive (also after receiving versed for agitation from EMS). Pt last had ECT on 03/19. Pt then declined to go for ECt on 03/21. Pt did well over the weekend but then started to withdrawal, was not talking as much to people. By Saturday, 03/24, pt was more resistant to taking medications but then declined to go to ECT. Pt finally and reluctantly went to ECT. However, en route he wandered away from mother's vehicle. She was looking for him and could not find him. She returned home suspecting that he would have also returned home and she found him there about 1.5 h later. Pt then drank a lot of water and fruit juice. At that time, pt was not talking that much, looking around room and mother noticed that he was posturing, holding poses in room, squeezing his hands quite tightly. Pt was crying on and off. Pt was not responding to his mother. Mother called Dr. Whelan who advised she call 911. Patient's stated presenting problems: Notes: Ct. was unable to participate in planning as he did not respond to CC's questions. Patient's goals for treatment: Notes: Ct. was unable to participate in planning as he did not respond to CC's questions. Ct. will be able to express self verbally Attend groups, sleep 6-8 hours and eat 3meals a day. Patient's strengths: Notes: Ct. was unable to participate in planning as he did not respond to CC's questions. Identify supports outside of hospital: Notes: MOC Discharge criteria: Notes: Ct. will demonstrate more stable mood by dischrge. Initial disposition plan/considerations: Notes: Continue ECT treatment. Master Treatment Plan Required Signatures Psychiatrist signature: Answers: Miguel Whelan MD: RN on-shift signature: Answers: RN: Patient signature: Answers: Patient: Date Signed: 03/26/2018 11:09 AM Electronically Signed By:Leila Caceres
--- NOTE | 2018-03-26 18:06 | ASMTCMCOM ---
CM Note CM Note Notes: Ct. was unable to engage with CC. He did not respond when asked questions and was staring at CC. Date Signed: 03/26/2018 11:31 AM Electronically Signed By:Leila Caceres
[2018-03-26] MEDS: LITHIUM CARBONATE ER 450 MG TAB PO SCH (20:36)
[2018-03-27] MEDS: MEMANTINE HCL 5 MG TAB PO SCH ×2 (08:59→18:34)
[2018-03-27] MEDS: buPROPion XL 150 MG TAB PO SCH (08:59)
[2018-03-27] MEDS: LORazepam 1 MG TAB PO SCH ×3 (08:59→17:50)
[2018-03-27] MEDS: LITHIUM CARBONATE ER 450 MG TAB PO SCH ×2 (08:59→18:19)
[2018-03-27] MEDS: LEVOTHYROXINE 50 MCG TAB PO SCH (09:00)
--- NOTE | 2018-03-27 15:52 | SOAPPROG ---
SOAP Progress Note Assessment/Plan: Assessment: Plan: 03/27/18 15:54 Mood/catatonia: Remains catatonic. Will [facility], hope to do ECT tomorrow. Subjective: Pt seen, discussed with staff. Continues to isolate in his room, mute. Unable to meaningfully communicate with others. He is compliant with meds, though PO intake is poor. Makes meaningful eye contact with me, though does not speak. Nods his head when I ask if he will do ECT tomorrow. Attends conversation about ECT with me going back over the purpose and goals for it. Objective: Vital Signs Temp Pulse Resp BP Pulse Ox 36.6 C 107 H 16 126/82 H 97 03/26/18 06:00 03/27/18 06:00 03/27/18 06:00 03/27/18 06:00 03/27/18 06:00 MSE: Moderate to severe bradykinesia without hypertonia or EPS/tremors. Affect is flat. Mute. Unable to assess form or content of thought. - Time Spent With Patient Time Spent With Patient: 15" ICD10 Worksheet Patient Problems: Problems Problem Status Onset Bipolar disorder Acute Psychotic disorder Acute Schizoaffective disorder Acute
--- NOTE | 2018-03-27 16:07 | ASMTCMCOM ---
CM Note CM Note Notes: The patient is nonverbal; he responds by making eye contact and with micro movements (for example: shrugging soulders). The patient declined to communicate with this process description writer. Per [facility] staff, the patient did not eat breakfast or lunch. Date Signed: 03/27/2018 04:04 PM Electronically Signed By:Virgie Durbin
[2018-03-28] MEDS ORDERED: CITRIC ACID/SODIUM CITRATE 30 ML UDCUP PO PRN (04:00)
[2018-03-28] MEDS ORDERED: THEOPHYLLINE ORAL SOLUTION 80 MG/15 ML UDCUP PO ONE (04:00)
[2018-03-28] MEDS ORDERED: ONDANSETRON DISINTEGRATING 4 MG TAB PO PRN (04:00)
[2018-03-28] MEDS ORDERED: NS 1,000 ML IV PRN (04:00)
--- NOTE | 2018-03-28 06:25 | PDECTPN ---
ECT Progress Note Patient Problems: Problems Problem Status Onset Code Bipolar disorder Acute F31.9 Psychotic disorder Acute F29 Schizoaffective disorder Acute F25.9 Date: 03/28/18 ECT provider: Adan Whelan Stimulus dose (%): 100 Pulse width: 0.5 ECT EMG (sec): 16 ECT EEG (sec): 33 ECT treatment type: bilateral QIDS-SR Total Score: 0 Next ECT date: 03/31/18 Next ECT time: 07:30 Home medications: Medication Instructions Recorded Levothyroxine [Synthroid 50 mcg 50 mcg PO DAILY06 #30 tab 12/06/17 (*)] LORazepam [Ativan (*)] 1 mg PO BID@01/01/18 [place] Carbonate ER [Eskalith Cr 450 mg PO BID 01/01/18 450 mg (*)] buPROPion XL [Wellbutrin Xl] 300 mg PO DAILY 01/20/18 Memantine HCl [Namenda 5 mg (*)] 5 mg PO BID 03/19/18 Medication review: completed Current treatment plan: acute phase Treatment plan frequency: 3 times per week ECT narrative: Pt presents for acute course ECT due to severe recurrence of catatonia. Remains generally mute, though actually engaged me this morning and spoke a few words. Cooperative with treatment. Affect is blunted to flat. Mood is "OK." TP linear for brief periods. TC reveals no evidence of psychosis. Underwent bilateral ECT without complication.
--- NOTE | 2018-03-28 06:36 | PDANEPAE ---
ECT Pre Anesthetic Evaluation Allergies/Adverse Reactions: No Known Allergies Allergy (Unverified 10/31/17 15:09) Patient ID confirmed: Yes H&P reviewed: Yes Pre-anesthetic history reviewed: Yes Heart: regular rate and rhythym, no murmur, rub, or gallop Lungs: no respiratory distress, clear to auscultation Mallampati Score: Class 2 ASA Status: II Home Medications: Medication Instructions Recorded Levothyroxine [Synthroid 50 mcg 50 mcg PO DAILY06 #30 tab 12/06/17 (*)] LORazepam [Ativan (*)] 1 mg PO BID@01/01/18 [place] Carbonate ER [Eskalith Cr 450 mg PO BID 01/01/18 450 mg (*)] buPROPion XL [Wellbutrin Xl] 300 mg PO DAILY 01/20/18 Memantine HCl [Namenda 5 mg (*)] 5 mg PO BID 03/19/18 Medication review: completed Patient interviewed: Yes Patient examined: Yes Anesthetic plan discussed with patient: Yes Anesthetic risks discussed with patient: Yes ECT Pre-Anesthetic History - Height & Weight Height: 190.5 cm Weight: 104.326 kg BMI: 28.75 - Anesthesia History Hx Anesthesia Complications (with details): none Family Hx Anesthesia Complications: none - Medications In the Past 6 Months the Patient Has Taken: Thyroid Medication, Tranquilizers - Tobacco/Alcohol/Drug Use Smoking Status: Never smoked Hx Drug/Substance Abuse: No - Prior Surgeries/Hospitalizations Prior Surgeries: none Prior Medical Hospitalizations: none - Pulmonary History ECT Hx Asthma: No Hx Abnormal Chest X-Ray: No Hx Oxygen in Use at Home: No - Cardiovascular History Hx Hypertension: No Currently Uses Hypertension Medication: No Hx Arrhythmias: No Hx Palpitations: No Hx Chest Pain: No Hx Coronary Artery / Peripheral Vascular Disease: No Hx Blood Clot: No - Neurologic History Hx Cerebrovascular Accident: No Hx CT Scan Or MRI Of The Brain: No Hx Epilepsy, Convulsions, Seizures, Or Blackouts: No Hx Frequent Or Severe Headaches: No Hx Numbness: No Hx Neurologic Disorder: No - Dental History Current Dental Issues: None - Endocrine History Hx Diabetes: No Hx Thyroid Problems: Yes Endocrine History Comment: takes Levothyroxine - Renal/Urologic History Hx Renal Disorders: No Hx Urinary Tract Problems: No - Liver History Hx Hepatic Disorders: No - Cancer History Hx Cancer: No - Hematology History Hx Unexplained Bleeding Of Any Type: No Hx Ease Of Bruising: No Hx Anemia: No - Gastrointestinal History Hx Gastroesophogeal Reflux Disease: No Hx Ulcers: No Hx Hiatal Hernia: No Hx Difficulty Swallowing: No - Musculoskeletal Hisory Hx Chronic Pain: No Hx Arthritis: No - Opthalmic History Hx Glaucoma: No Visual Assistive Devices: None Hx Opthalmic Disorders: No - Other Health History Physical Disabililty: No Recent Cough, Cold, or Fever: No Significant Weight Loss In The Last 4 Months: No Possible the Patient Might be : No
--- NOTE | 2018-03-28 07:11 | POSTANESTH ---
Post Anesthetic Evaluation Cardiovascular Status: Normal, Stable Respiratory Status: Normal, Stable Level of Consciousness/Mental Status: Can Participate in Eval, Alert and Oriented Pain Control: Adequate, Prn Tx Ordered Nausea/Vomiting Control: Adequate, Prn Tx Ordered Complications Possibly Related to Anesthesia: None Noted
[2018-03-28] MEDS: MEMANTINE HCL 5 MG TAB PO SCH ×2 (08:56→20:42)
[2018-03-28] MEDS: LITHIUM CARBONATE ER 450 MG TAB PO SCH ×2 (08:56→20:42)
[2018-03-28] MEDS: LORazepam 1 MG TAB PO SCH ×3 (08:56→20:42)
[2018-03-28] MEDS: buPROPion XL 150 MG TAB PO SCH (08:56)
[2018-03-28] MEDS: LEVOTHYROXINE 50 MCG TAB PO SCH (10:09)
--- NOTE | 2018-03-28 15:39 | ASMTCMCOM ---
CM Note CM Note Notes: The patient was verbally responsive with this account underwriter. He stated that he was feeling "good" following ECT treatment. He reported that he would likely be able to discharge home to his mother, Juanis, or his ex-, Sera ([phone]), although he is not currently thinking about discharge. The patient was calm and cooperative; he seemed uplifed during this interaction. He agreed to inform the CC when he felt ready to confirm his plans with his relatives. Date Signed: 03/28/2018 03:31 PM Electronically Signed By:Virgie Durbin
[2018-03-29] MEDS: LITHIUM CARBONATE ER 450 MG TAB PO SCH ×2 (09:09→20:43)
[2018-03-29] MEDS: LEVOTHYROXINE 50 MCG TAB PO SCH (09:09)
[2018-03-29] MEDS: buPROPion XL 150 MG TAB PO SCH (09:09)
[2018-03-29] MEDS: LORazepam 1 MG TAB PO SCH ×3 (09:09→20:42)
[2018-03-29] MEDS: MEMANTINE HCL 5 MG TAB PO SCH ×2 (09:09→20:42)
--- NOTE | 2018-03-29 12:04 | SOAPPROG ---
SOAP Progress Note Assessment/Plan: Assessment: 37yo CM with Bipolar, catatonia, was lost to f/u and admitted in catatonic state , now restarting ECT which had been helpful in past 03/29/18 14:19 slept 7hr. staff states he talked a little. on eval, pt casually dressed, decr psychom activity, bearded, eye contact good, with very occasional appropriate smile, nml speech vol, single word responses. reports mood is "okay" and shrugged shoulders. feeling "better" since admission.little/no spont speech, poverty of content. did not appear actively responding to internal stim, denied AH/VH, denied SI. reports slept "fine". denied med s/e or any problems since ECT yesterday. no physical complaints. PLAN: cont current meds and ECT Objective: Vital Signs Temp Pulse Resp BP Pulse Ox 36.6 C 90 18 124/83 H 98 03/29/18 06:00 03/29/18 06:00 03/29/18 06:00 03/29/18 06:00 03/29/18 06:00 03/28/18 03/29/18 03/30/18 05:59 05:59 05:59 Intake Total 1100 Balance 1100 - Time Spent With Patient Time Spent With Patient: 10min - Pending Discharge Pending Discharge Within 24 Hours: No Pending Discharge Within 48 Hours: No ICD10 Worksheet Patient Problems: Problems Problem Status Onset Bipolar disorder Acute Psychotic disorder Acute Schizoaffective disorder Acute
[2018-03-30] MEDS: LORazepam 1 MG TAB PO SCH ×3 (08:24→17:26)
[2018-03-30] MEDS: LITHIUM CARBONATE ER 450 MG TAB PO SCH ×2 (08:24→17:26)
[2018-03-30] MEDS: buPROPion XL 150 MG TAB PO SCH (08:24)
[2018-03-30] MEDS: MEMANTINE HCL 5 MG TAB PO SCH ×2 (08:24→21:06)
[2018-03-30] MEDS: LEVOTHYROXINE 50 MCG TAB PO SCH (08:26)
--- NOTE | 2018-03-30 12:49 | ASMTCMCOM ---
CM Note CM Note Notes: Pt. was laying in bed when CC spoke with him. Pt. reports doing "fine". Pt. stated he slept "good". Pt. reports eating well. Pt. reports no issues with his current medications. Pt. stated he has been to "one or two" groups. Pt. denied SI, HI, AVH and paranoia. Pt. stated he wants to continue working with his psychiatrist but does not want to see a therapist. Pt. presents as alert, calm, flat, actually speaking with staff, and with good eye contact. Staff report pt. sleeping 6 hours, eating well, and pacing some. Pt. is scheduled for ECT on Saturday at 0630. Date Signed: 03/30/2018 12:49 PM Electronically Signed By:Clair Wyman
--- NOTE | 2018-03-30 22:55 | SOAPPROG ---
SOAP Progress Note Assessment/Plan: Assessment: 37yo CM with Bipolar, catatonia, was lost to f/u and admitted in catatonic state , now restarting ECT which had been helpful in past 03/29/18 14:19 slept 7hr. staff states he talked a little. on eval, pt casually dressed, decr psychom activity, bearded, eye contact good, with very occasional appropriate smile, nml speech vol, single word responses. reports mood is "okay" and shrugged shoulders. feeling "better" since admission.little/no spont speech, poverty of content. did not appear actively responding to internal stim, denied AH/VH, denied SI. reports slept "fine". denied med s/e or any problems since ECT yesterday. no physical complaints. PLAN: cont current meds and ECT 03/30/18 15:27 slept 7hr. has ECT in AM per staff has been eating meals, responding more appropriately overall, seems w less catatonic sxs, although still isolates, paces, not attending groups on interview, pt in room resting in bed. calm, good eye contact. not appearing in any physical discomfort. longer delay before responding, and did not respond verbally to some questions. seemed a bit more interactive this AM. reports feeling "fine". no physical complaints. PLAN: cont current meds, ECT in AM had told cc he does not want to go to [facility] Objective: Vital Signs Temp Pulse Resp BP Pulse Ox 36.5 C 75 16 118/79 95 03/30/18 06:00 03/30/18 06:00 03/30/18 06:00 03/30/18 06:00 03/30/18 06:00 03/29/18 03/30/18 03/31/18 05:59 05:59 05:59 Intake Total 1100 Balance 1100 Medications Generic Name Dose Route Start Last Admin Trade Name Freq PRN Reason Stop Dose Admin Levothyroxine Sodium 50 mcg 03/26/18 10:00 03/30/18 08:26 Synthroid PO 09/22/18 09:59 50 mcg DAILY@1000 SUZETTE Lorazepam 1 mg 03/26/18 09:00 03/30/18 17:26 Ativan PO 09/22/18 08:59 Not Given TID SUZETTE Memantine 5 mg 03/26/18 09:00 03/30/18 21:06 Namenda PO 09/22/18 08:59 5 mg BID SUZETTE Bupropion HCl 300 mg 03/26/18 09:00 03/30/18 08:24 Wellbutrin Xl PO 09/22/18 08:59 300 mg DAILY SUZETTE [place] Carbonate 450 mg 03/26/18 21:00 03/30/18 17:26 Eskalith Cr PO 09/22/18 20:59 Not Given BID SUZETTE - Time Spent With Patient Time Spent With Patient: <10min - Pending Discharge Pending Discharge Within 24 Hours: No Pending Discharge Within 48 Hours: No ICD10 Worksheet Patient Problems: Problems Problem Status Onset Bipolar disorder Acute Psychotic disorder Acute Schizoaffective disorder Acute
[2018-03-31] MEDS ORDERED: NS 1,000 ML IV PRN (04:00)
[2018-03-31] MEDS ORDERED: THEOPHYLLINE ORAL SOLUTION 80 MG/15 ML UDCUP PO ONE (04:00)
[2018-03-31] MEDS ORDERED: CITRIC ACID/SODIUM CITRATE 30 ML UDCUP PO PRN (04:00)
[2018-03-31] MEDS ORDERED: ONDANSETRON DISINTEGRATING 4 MG TAB PO PRN (04:00)
[2018-03-31] MEDS: NS 1,000 ML IV PRN (05:59)
[2018-03-31] MEDS ORDERED: ONDANSETRON DISINTEGRATING 4 MG TAB ONE (06:00)
[2018-03-31] MEDS ORDERED: CITRIC ACID/SODIUM CITRATE 30 ML UDCUP ONE (06:00)
[2018-03-31] MEDS: LITHIUM CARBONATE ER 450 MG TAB PO SCH ×3 (08:49→20:36)
[2018-03-31] MEDS: LEVOTHYROXINE 50 MCG TAB PO SCH ×2 (08:49→09:08)
[2018-03-31] MEDS: buPROPion XL 150 MG TAB PO SCH ×2 (09:01→09:08)
[2018-03-31] MEDS: LORazepam 1 MG TAB PO SCH ×4 (09:01→20:36)
[2018-03-31] MEDS: MEMANTINE HCL 5 MG TAB PO SCH ×3 (09:01→20:36)
--- NOTE | 2018-03-31 12:35 | ASMTCMCOM ---
CM Note CM Note Notes: Client is isolating to his room for most day. Additionally, he declined ECT treatment this morning. Client remains most selectively mute towards others when asked questions. Client presents as depressed, hopeless while displaying a flat affect. Date Signed: 03/31/2018 12:34 PM Electronically Signed By:Alhaji Vaaldez
--- NOTE | 2018-03-31 14:29 | SOAPPROG ---
SOAP Progress Note Assessment/Plan: Assessment: Most recent note from Dr. Whitt: Assessment: 37yo CM with Bipolar, catatonia, was lost to f/u and admitted in catatonic state , now restarting ECT which had been helpful in past 03/29/18 14:19 slept 7hr. staff states he talked a little. on eval, pt casually dressed, decr psychom activity, bearded, eye contact good, with very occasional appropriate smile, nml speech vol, single word responses. reports mood is "okay" and shrugged shoulders. feeling "better" since admission.little/no spont speech, poverty of content. did not appear actively responding to internal stim, denied AH/VH, denied SI. reports slept "fine". denied med s/e or any problems since ECT yesterday. no physical complaints. PLAN: cont current meds and ECT 03/30/18 15:27 slept 7hr. has ECT in AM per staff has been eating meals, responding more appropriately overall, seems w less catatonic sxs, although still isolates, paces, not attending groups on interview, pt in room resting in bed. calm, good eye contact. not appearing in any physical discomfort. longer delay before responding, and did not respond verbally to some questions. seemed a bit more interactive this AM. reports feeling "fine". no physical complaints. PLAN: cont current meds, ECT in AM had told cc he does not want to go to [facility] PLAN: 03/31/18 14:24 1. Patient refused AM meds and ECT today. 2. Patient has shown minimal improvement since Saturday, slightly more fluent and spontaneous speech, eating appropriately, increased motor activity. 3. Still spends most of his time in his room, often sitting and staring at nothing in particular. 4. Next ECT scheduled for Sat Subjective: Patient is lying in bed with head propped up on pillow when MD enters. He makes appropriate eye contact and gives minimal verbal responses to questions. Staff report since Saturday patient has been more responsive to questions and slightly more engaged. He did refuse meds this AM and ECT. MD asked why patient refused ECT. He said, "I don't need it." When asked why he refused meds, patient said, "for the same reason." MD asked if patient was feeling sad, depressed, hopeless , he said, "not now." He denied any SI/HI. Objective: Vital Signs Temp Pulse Resp BP Pulse Ox 37.1 C 107 H 16 140/98 H 97 03/31/18 06:00 03/31/18 06:00 03/31/18 06:00 03/31/18 06:00 03/31/18 06:00 MSE: Affect: Blunted Mood: "OK" TP: Linear, paucity of speech, response latency TC: Denied SI/HI Perception: Denies any AH/VH Insight/Judgment: Poor - Time Spent With Patient Time Spent With Patient: 15" - Pending Discharge Pending Discharge Within 24 Hours: No Pending Discharge Within 48 Hours: No ICD10 Worksheet Patient Problems: Problems Problem Status Onset Bipolar disorder Acute Psychotic disorder Acute Schizoaffective disorder Acute
[2018-04-01] MEDS: buPROPion XL 150 MG TAB PO SCH (08:54)
[2018-04-01] MEDS: LEVOTHYROXINE 50 MCG TAB PO SCH (08:55)
[2018-04-01] MEDS: LORazepam 1 MG TAB PO SCH ×3 (08:55→20:37)
[2018-04-01] MEDS: LITHIUM CARBONATE ER 450 MG TAB PO SCH ×2 (08:55→20:37)
[2018-04-01] MEDS: MEMANTINE HCL 5 MG TAB PO SCH ×2 (08:56→20:37)
[2018-04-02] MEDS ORDERED: ONDANSETRON DISINTEGRATING 4 MG TAB PO PRN (04:00)
[2018-04-02] MEDS ORDERED: THEOPHYLLINE ORAL SOLUTION 80 MG/15 ML UDCUP PO ONE (04:00)
[2018-04-02] MEDS ORDERED: NS 1,000 ML IV PRN (04:00)
[2018-04-02] MEDS ORDERED: CITRIC ACID/SODIUM CITRATE 30 ML UDCUP PO PRN (04:00)
[2018-04-02] MEDS ORDERED: CITRIC ACID/SODIUM CITRATE 30 ML UDCUP ONE ×2 (05:53→06:51)
[2018-04-02] MEDS ORDERED: ONDANSETRON DISINTEGRATING 4 MG TAB ONE ×2 (05:53→06:51)
--- NOTE | 2018-04-02 07:36 | PDECTPN ---
ECT Progress Note Patient Problems: Problems Problem Status Onset Code Bipolar disorder Acute F31.9 Psychotic disorder Acute F29 Schizoaffective disorder Acute F25.9 Date: 04/02/18 ECT provider: Adan Whelan Anesthesia: Jesse Whiteside Stimulus dose (%): 100 Pulse width: 0.5 ECT EMG (sec): 15 ECT EEG (sec): 28 ECT treatment type: bilateral QIDS-SR Total Score: 9 QIDS-SR Question #12 Score: 0 MMSE Total Score (Max = 21): 20 Next ECT date: 04/04/18 Next ECT time: 09:00 Home medications: Medication Instructions Recorded Levothyroxine [Synthroid 50 mcg 50 mcg PO DAILY06 #30 tab 12/06/17 (*)] LORazepam [Ativan (*)] 1 mg PO BID@01/01/18 [place] Carbonate ER [Eskalith Cr 450 mg PO BID 01/01/18 450 mg (*)] buPROPion XL [Wellbutrin Xl] 300 mg PO DAILY 01/20/18 Memantine HCl [Namenda 5 mg (*)] 5 mg PO BID 03/19/18 Current treatment plan: acute phase Treatment plan frequency: 3 times per week ECT narrative: Pt presents for continued acute course ECT. Remains generally mute, though able to engage verbally. Refused treatment on Saturday and then again this morning. Staff kept at him until he agreed to come down. Affect is blunted to flat. Mood is "OK." TP linear for brief periods, delayed. TC reveals no evidence of psychosis. Underwent bilateral ECT without complication.
[2018-04-02] MEDS: MEMANTINE HCL 5 MG TAB PO SCH ×2 (09:18→19:52)
[2018-04-02] MEDS: LITHIUM CARBONATE ER 450 MG TAB PO SCH ×2 (09:18→19:51)
[2018-04-02] MEDS: buPROPion XL 150 MG TAB PO SCH ×2 (09:18→09:20)
[2018-04-02] MEDS: LEVOTHYROXINE 50 MCG TAB PO SCH (09:18)
[2018-04-02] MEDS: LORazepam 1 MG TAB PO SCH ×3 (09:18→19:53)
--- NOTE | 2018-04-02 14:46 | ASMTCMCOM ---
CM Note CM Note Notes: Pt. reports feeling "good". Pt. stated ECT "went well". Pt. reports sleeping "pretty well". Pt. stated he is eating well and attending some groups. Pt. stated he is "feeling pretty good". Pt. stated he "want to get my family back together". Pt. stated he was a few months ago and has three children. Pt. stated he currently lives in [place] and is taking time off work for himself. Pt. denied SI, HI, AVH and paranoia. Pt. presents as alert, unkempt, with good eye contact, more affect than past weekend, and with a mostly pleasant demeanor. Staff report pt. sleeping 7.5 hours and being medication complaint. Date Signed: 04/02/2018 02:46 PM Electronically Signed By:Clair Wyman
[2018-04-03] MEDS: LORazepam 1 MG TAB PO SCH ×3 (09:04→20:52)
[2018-04-03] MEDS: LEVOTHYROXINE 50 MCG TAB PO SCH (09:04)
[2018-04-03] MEDS: buPROPion XL 150 MG TAB PO SCH (09:04)
[2018-04-03] MEDS: LITHIUM CARBONATE ER 450 MG TAB PO SCH ×2 (09:04→20:51)
[2018-04-03] MEDS: MEMANTINE HCL 5 MG TAB PO SCH ×2 (09:04→20:51)
--- NOTE | 2018-04-03 20:58 | SOAPPROG ---
SOAP Progress Note Assessment/Plan: Assessment: Plan: 03/27/18 15:54 Mood/catatonia: Remains catatonic. Will [facility], hope to do ECT tomorrow. 04/03/18 20:58 Mood/catatonia: Improving with ECT. CCM. Subjective: Pt seen, discussed with staff. Notable benefit from ECT with increased volitional activity, more spontaneous. compliant with meds. Eating and drinking well. No c/o's. Agrees to ongoing ECT. Objective: Vital Signs Temp Pulse Resp BP Pulse Ox 36.8 C 86 16 114/59 L 98 04/03/18 06:00 04/03/18 06:00 04/03/18 06:00 04/03/18 06:00 04/03/18 06:00 04/02/18 04/03/18 04/04/18 05:59 05:59 05:59 Intake Total 720 Balance 720 MSE: Poorly groomed, internally focused. Will respond to others, though prefers to return to internal dialogue. Affect is blunted to flat. Mood is not stated. TP is abbreviated, notable poverty. TC reveals prominent internal focus. - Time Spent With Patient Time Spent With Patient: 15" ICD10 Worksheet Patient Problems: Problems Problem Status Onset Bipolar disorder Acute Psychotic disorder Acute Schizoaffective disorder Acute
[2018-04-04] MEDS ORDERED: NS 1,000 ML IV PRN (04:00)
[2018-04-04] MEDS ORDERED: THEOPHYLLINE ORAL SOLUTION 80 MG/15 ML UDCUP PO ONE (04:00)
[2018-04-04] MEDS ORDERED: ONDANSETRON DISINTEGRATING 4 MG TAB PO PRN (04:00)
[2018-04-04] MEDS ORDERED: CITRIC ACID/SODIUM CITRATE 30 ML UDCUP PO PRN (04:00)
[2018-04-04] MEDS: buPROPion XL 150 MG TAB PO SCH (12:18)
[2018-04-04] MEDS: LITHIUM CARBONATE ER 450 MG TAB PO SCH ×2 (12:19→21:02)
[2018-04-04] MEDS: LORazepam 1 MG TAB PO SCH ×3 (12:19→21:02)
[2018-04-04] MEDS: LEVOTHYROXINE 50 MCG TAB PO SCH (12:19)
[2018-04-04] MEDS: MEMANTINE HCL 5 MG TAB PO SCH ×2 (12:19→21:02)
--- NOTE | 2018-04-04 13:34 | ASMTCMCOM ---
CM Note CM Note Notes: Pt. refused to speak with CC. Pt. presented as catatonic but responding to CC's presence. Staff report pt. refused to have ECT this morning, stating he had already had it. Staff report pt. sleeping 8.5 hours and being medication compliant. Date Signed: 04/04/2018 01:33 PM Electronically Signed By:Clair Wyman
--- NOTE | 2018-04-04 15:57 | SOAPPROG ---
SOAP Progress Note Assessment/Plan: Assessment: Plan: 03/27/18 15:54 Mood/catatonia: Remains catatonic. Will [facility], hope to do ECT tomorrow. 04/03/18 20:58 Mood/catatonia: Improving with ECT. [facility]. 04/04/18 15:57 Mood/catatonia: Has regressed in setting of treatment refusal. Unclear what best course of action is at this point. He clearly needs ECT, but is refusing this. I could request involuntary ECT but I'm not sure how we would physically force him to comply. Will [facility] for now, continue to build therapeutic alliance. Pt will not allow visits or calls from his mother who is influencial over his thinking and behaviors. Subjective: Pt seen, discussed with staff. Refuses to go to ECT again this morning. Lying in bed with eyes open, but refuses to speak. RN states he spoke to her earlier stating that he "already did ECT". Remains compliant with meds. Sleep adequate. Disheveled, uncoop. Lying in bed staring at the ceiling. Affect is flat. Mood is not stated. Mute, will not answer any question, even when asked to use "yes or no" answers. Objective: Vital Signs Temp Pulse Resp BP Pulse Ox 36.6 C 99 14 119/79 99 04/04/18 06:00 04/04/18 06:00 04/04/18 06:00 04/04/18 06:00 04/04/18 06:00 04/03/18 04/04/18 04/05/18 05:59 05:59 05:59 Intake Total 720 Balance 720 - Time Spent With Patient Time Spent With Patient: 15" ICD10 Worksheet Patient Problems: Problems Problem Status Onset Bipolar disorder Acute Psychotic disorder Acute Schizoaffective disorder Acute
[2018-04-05] MEDS: LORazepam 1 MG TAB PO SCH ×4 (08:23→19:48)
[2018-04-05] MEDS: buPROPion XL 150 MG TAB PO SCH (08:23)
[2018-04-05] MEDS: LEVOTHYROXINE 50 MCG TAB PO SCH (08:23)
[2018-04-05] MEDS: MEMANTINE HCL 5 MG TAB PO SCH ×2 (08:23→19:48)
[2018-04-05] MEDS: LITHIUM CARBONATE ER 450 MG TAB PO SCH ×2 (08:23→19:48)
--- NOTE | 2018-04-05 16:00 | SOAPPROG ---
SOAP Progress Note Assessment/Plan: Assessment: Per Dr. Whelan's recent notes: 04/03/18 20:58 Mood/catatonia: Improving with ECT. [facility]. 04/04/18 15:57 Mood/catatonia: Has regressed in setting of treatment refusal. Unclear what best course of action is at this point. He clearly needs ECT, but is refusing this. I could request involuntary ECT but I'm not sure how we would physically force him to comply. Will [facility] for now, continue to build therapeutic alliance. Pt will not allow visits or calls from his mother who is influencial over his thinking and behaviors. Subjective: Pt seen, discussed with staff. Refuses to go to ECT again this morning. Lying in bed with eyes open, but refuses to speak. RN states he spoke to her earlier stating that he "already did ECT". Remains compliant with meds. Sleep adequate. Disheveled, uncoop. Lying in bed staring at the ceiling. Affect is flat. Mood is not stated. Mute, will not answer any question, even when asked to use "yes or no" answers. PLAN: 04/05/18 15:56 1. Initially refused meds this AM, but later took with prompting from RN. 2. Patient isolating in his room most of the day. 3. Initially refused meals, but later took tray into his room and ate 100%. 4. No change to meds. 5. Awaiting ECT on Saturday. Patient refused on Saturday. Subjective: Patient was sitting on his bed, refused to answer any questions from MD. RN noted that patient was lying flat in bed not moving this AM and refused his meds and didn't want his breakfast. However, patient eventually took meds from RN after much prompting. RN also noted patient later got up out of bed and walked into hallway to pick up attendant his breakfast tray and took it back to his room. Patient ate 100% of meal including drinking water and juice. Objective: Vital Signs Temp Pulse Resp BP Pulse Ox 36.9 C 98 16 123/84 H 97 04/05/18 06:00 04/05/18 06:00 04/05/18 06:00 04/05/18 06:00 04/05/18 06:00 MSE: Affect: Blunted Mood: Irritable at times TP: Paucity of speech, disorganized TC: Denies SI/HI, difficult to assess other content d/t lack of response to questions Insight/Judgment: Impaired - Time Spent With Patient Time Spent With Patient: 15" - Pending Discharge Pending Discharge Within 24 Hours: No Pending Discharge Within 48 Hours: No ICD10 Worksheet Patient Problems: Problems Problem Status Onset Bipolar disorder Acute Psychotic disorder Acute Schizoaffective disorder Acute
[2018-04-06] MEDS: LEVOTHYROXINE 50 MCG TAB PO SCH (08:50)
[2018-04-06] MEDS: LORazepam 1 MG TAB PO SCH ×3 (08:50→19:24)
[2018-04-06] MEDS: buPROPion XL 150 MG TAB PO SCH (08:50)
[2018-04-06] MEDS: LITHIUM CARBONATE ER 450 MG TAB PO SCH ×2 (08:50→19:24)
[2018-04-06] MEDS: MEMANTINE HCL 5 MG TAB PO SCH ×2 (08:50→19:22)
--- NOTE | 2018-04-06 14:25 | ASMTCMCOM ---
CM Note CM Note Notes: Pt. reports feeling "fine" today. Pt. stated he slept "pretty well". Pt. reports "breakfast was good" and getting enough to eat. Pt. reports no issues with his current medications. Pt. stated he is attending groups; staff report pt. not attending any groups. Pt. reports not wanting any more ECT. Pt. stated "don't think it's necessary". Pt. reports wanting to only have medications. Pt. denied SI, HI, AVH and paranoia. Pt. presents as alert, nervous, unkempt, with fair eye contact, and lacking insight. Staff report pt. sleeping 8 hours and being medication compliant. Pt. is scheduled for ECT on Saturday at 0630. Date Signed: 04/06/2018 02:24 PM Electronically Signed By:Clair Wyman
--- NOTE | 2018-04-06 15:53 | SOAPPROG ---
SOAP Progress Note Assessment/Plan: Assessment: Per Dr. Whelan's recent notes: 04/03/18 20:58 Mood/catatonia: Improving with ECT. [facility]. 04/04/18 15:57 Mood/catatonia: Has regressed in setting of treatment refusal. Unclear what best course of action is at this point. He clearly needs ECT, but is refusing this. I could request involuntary ECT but I'm not sure how we would physically force him to comply. Will [facility] for now, continue to build therapeutic alliance. Pt will not allow visits or calls from his mother who is influencial over his thinking and behaviors. Subjective: Pt seen, discussed with staff. Refuses to go to ECT again this morning. Lying in bed with eyes open, but refuses to speak. RN states he spoke to her earlier stating that he "already did ECT". Remains compliant with meds. Sleep adequate. Disheveled, uncoop. Lying in bed staring at the ceiling. Affect is flat. Mood is not stated. Mute, will not answer any question, even when asked to use "yes or no" answers. PLAN: 04/05/18 15:56 1. Initially refused meds this AM, but later took with prompting from RN. 2. Patient isolating in his room most of the day. 3. Initially refused meals, but later took tray into his room and ate 100%. 4. No change to meds. 5. Awaiting ECT on Saturday. Patient refused on Saturday. PLAN: 04/06/18 15:43 1. More cooperative this AM. Took meds without any hesitance. 2. More interactive and more fluent speech. Ate 100% of breakfast. 3. Patient said he didn't want ECT tomorrow. MD encouraged patient to reconsider. Subjective: Patient is sitting up in bed. He has been more interactive and cooperative today. He ate 100% of his breakfast in dining area. He took meds this AM without any prompting or encouragement from RN. His speech is slightly more fluent and spontaneous than yesterday. He continues to refuse ECT, stating it's "not necessary." MD reminded patient how much he improved with ECT during his last admission. Objective: Vital Signs Temp Pulse Resp BP Pulse Ox 36.5 C 94 16 121/73 H 98 04/06/18 06:00 04/06/18 06:00 04/06/18 06:00 04/06/18 06:00 04/06/18 06:00 MSE: Affect: Blunted Mood: "OK" TP: Paucity of speech, illogical (denying that ECT was helpful in past) TC: Denies any SI/HI Perception: Denies AH/VH Insight/Judgment: Impaired - Time Spent With Patient Time Spent With Patient: 15" - Pending Discharge Pending Discharge Within 24 Hours: No Pending Discharge Within 48 Hours: No ICD10 Worksheet Patient Problems: Problems Problem Status Onset Bipolar disorder Acute Psychotic disorder Acute Schizoaffective disorder Acute
[2018-04-07] MEDS ORDERED: THEOPHYLLINE ORAL SOLUTION 80 MG/15 ML UDCUP PO ONE (04:00)
[2018-04-07] MEDS ORDERED: CITRIC ACID/SODIUM CITRATE 30 ML UDCUP PO PRN (04:00)
[2018-04-07] MEDS ORDERED: NS 1,000 ML IV PRN (04:00)
[2018-04-07] MEDS ORDERED: ONDANSETRON DISINTEGRATING 4 MG TAB PO PRN (04:00)
[2018-04-07] MEDS: LITHIUM CARBONATE ER 450 MG TAB PO SCH ×2 (08:53→21:01)
[2018-04-07] MEDS: buPROPion XL 150 MG TAB PO SCH (08:53)
[2018-04-07] MEDS: LORazepam 1 MG TAB PO SCH ×3 (08:53→21:01)
[2018-04-07] MEDS: LEVOTHYROXINE 50 MCG TAB PO SCH (08:53)
[2018-04-07] MEDS: MEMANTINE HCL 5 MG TAB PO SCH ×2 (08:54→21:01)
--- NOTE | 2018-04-07 13:47 | ASMTCMCOM ---
CM Note CM Note Notes: Client did not attend ECT treatment today. Client remains in his room not interacting with peers or staff. Clt appears regressed in some aspects; CC will reach out to and see if she can come in for a family meeting. Date Signed: 04/07/2018 01:46 PM Electronically Signed By:Alhaji Valadez
--- NOTE | 2018-04-07 13:58 | ASMTCMCOM ---
CM Note CM Note Notes: CC contacted Sera at [phone], who noted that she would be available this Saturday at 10:30am for a family meeting with CC and doctor. CC will notify doctor. Date Signed: 04/07/2018 01:57 PM Electronically Signed By:Alhaji Valadez
--- NOTE | 2018-04-07 16:00 | SOAPPROG ---
SOAP Progress Note Assessment/Plan: Assessment: Plan: 03/27/18 15:54 Mood/catatonia: Remains catatonic. Will [facility], hope to do ECT tomorrow. 04/03/18 20:58 Mood/catatonia: Improving with ECT. [facility]. 04/04/18 15:57 Mood/catatonia: Has regressed in setting of treatment refusal. Unclear what best course of action is at this point. He clearly needs ECT, but is refusing this. I could request involuntary ECT but I'm not sure how we would physically force him to comply. Will [facility] for now, continue to build therapeutic alliance. Pt will not allow visits or calls from his mother who is influencial over his thinking and behaviors. 04/07/18 16:00 Mood/catatonia: Continued behavioral regression. Unclear the basis of this, but I believe it is a combination of opposition to prolonged externalized locus of control and inability to effectively process information re: his illness and treatment. Will request involuntary ECT, monitor on meds for now. Subjective: Pt seen, discussed with staff. Refused to come to ECT this morning. I spoke to him at 0630 and he stated, "I am not doing ECT any more, I already told them that." I discussed with him that he remains very ill and ECT has helped him in the past. I described the plan of care again inc: acute course ECT treatment on a 2-3 x's/wk basis until he regains adequate functional capacity to allow d/ c. He does not respond at any point in this conversation, staring at the ceiling instead. Objective: Vital Signs Temp Pulse Resp BP Pulse Ox 36.9 C 100 16 121/78 H 96 04/07/18 06:00 04/07/18 06:00 04/07/18 06:00 04/07/18 06:00 04/07/18 06:00 MSE: Calm, though quite guarded. Lying in bed on his back with sheet up to his chin. Staring at the ceiling without blinking. Marked psychomotor retardation noted. Affect is blunted-flat. Mood is "good." TP is abbreviated. TC reveals paranoid tone to statements. - Time Spent With Patient Time Spent With Patient: 15" ICD10 Worksheet Patient Problems: Problems Problem Status Onset Bipolar disorder Acute Psychotic disorder Acute Schizoaffective disorder Acute
[2018-04-08] MEDS: LORazepam 1 MG TAB PO SCH ×3 (09:38→17:50)
[2018-04-08] MEDS: LITHIUM CARBONATE ER 450 MG TAB PO SCH ×2 (09:38→17:49)
[2018-04-08] MEDS: LEVOTHYROXINE 50 MCG TAB PO SCH (09:38)
[2018-04-08] MEDS: buPROPion XL 150 MG TAB PO SCH (09:38)
[2018-04-08] MEDS: MEMANTINE HCL 5 MG TAB PO SCH ×2 (09:38→20:10)
--- NOTE | 2018-04-08 17:35 | SOAPPROG ---
SOAP Progress Note Assessment/Plan: Assessment: Plan: 03/27/18 15:54 Mood/catatonia: Remains catatonic. Will [facility], hope to do ECT tomorrow. 04/03/18 20:58 Mood/catatonia: Improving with ECT. [facility]. 04/04/18 15:57 Mood/catatonia: Has regressed in setting of treatment refusal. Unclear what best course of action is at this point. He clearly needs ECT, but is refusing this. I could request involuntary ECT but I'm not sure how we would physically force him to comply. Will [facility] for now, continue to build therapeutic alliance. Pt will not allow visits or calls from his mother who is influencial over his thinking and behaviors. 04/07/18 16:00 Mood/catatonia: Continued behavioral regression. Unclear the basis of this, but I believe it is a combination of opposition to prolonged externalized locus of control and inability to effectively process information re: his illness and treatment. Will request involuntary ECT, monitor on meds for now. 04/08/18 17:34 Mood/catatonia: No change. Remains mute. Hope to see change with 's visit and reinvestment in ECT. Will make NPO overnight in case he agrees to proceed. Subjective: Pt seen, discussed with staff. Refuses to speak. Staff has witnessed him interacting. agreeable to family meeting tomorrow. Pt continues to refuse to discuss ECT. Compliant with meds. Objective: Vital Signs Temp Pulse Resp BP Pulse Ox 36.9 C 100 16 121/78 H 96 04/07/18 06:00 04/07/18 06:00 04/07/18 06:00 04/07/18 06:00 04/07/18 06:00 - Time Spent With Patient Time Spent With Patient: 15" ICD10 Worksheet Patient Problems: Problems Problem Status Onset Bipolar disorder Acute Psychotic disorder Acute Schizoaffective disorder Acute
[2018-04-09] MEDS: LORazepam 1 MG TAB PO SCH ×3 (09:00→20:07)
[2018-04-09] MEDS: LITHIUM CARBONATE ER 450 MG TAB PO SCH ×2 (09:00→20:05)
[2018-04-09] MEDS: MEMANTINE HCL 5 MG TAB PO SCH ×2 (09:01→20:08)
[2018-04-09] MEDS: LEVOTHYROXINE 50 MCG TAB PO SCH (09:01)
[2018-04-09] MEDS: buPROPion XL 150 MG TAB PO SCH (09:01)
[2018-04-09] MEDS ORDERED: ONDANSETRON DISINTEGRATING 4 MG TAB PO PRN (12:00)
[2018-04-09] MEDS ORDERED: NS 1,000 ML IV PRN (12:00)
[2018-04-09] MEDS ORDERED: THEOPHYLLINE ORAL SOLUTION 80 MG/15 ML UDCUP PO ONE (12:00)
[2018-04-09] MEDS ORDERED: CITRIC ACID/SODIUM CITRATE 30 ML UDCUP PO PRN (12:00)
[2018-04-09] MEDS ORDERED: CITRIC ACID/SODIUM CITRATE 30 ML UDCUP ONE (15:42)
[2018-04-09] MEDS ORDERED: ONDANSETRON DISINTEGRATING 4 MG TAB ONE (15:42)
--- NOTE | 2018-04-09 16:18 | PDECTPN ---
ECT Progress Note Patient Problems: Problems Problem Status Onset Code Bipolar disorder Acute F31.9 Psychotic disorder Acute F29 Schizoaffective disorder Acute F25.9 Date: 04/09/18 ECT provider: Adan Whelan Anesthesia: Ej Vanegas Stimulus dose (%): 100 Pulse width: 0.5 ECT EMG (sec): 33 ECT EEG (sec): 75 ECT treatment type: bilateral QIDS-SR Total Score: 0 QIDS-SR Question #12 Score: 0 MMSE Total Score (Max = 21): 20 Next ECT date: 04/11/18 Next ECT time: 07:00 Home medications: Medication Instructions Recorded Levothyroxine [Synthroid 50 mcg 50 mcg PO DAILY06 #30 tab 12/06/17 (*)] LORazepam [Ativan (*)] 1 mg PO BID@01/01/18 [place] Carbonate ER [Eskalith Cr 450 mg PO BID 01/01/18 450 mg (*)] buPROPion XL [Wellbutrin Xl] 300 mg PO DAILY 01/20/18 Memantine HCl [Namenda 5 mg (*)] 5 mg PO BID 03/19/18 Medication review: completed Current treatment plan: acute phase Treatment plan frequency: 3 times per week ECT narrative: Pt presents for continued acute course ECT. Participated in a family meeting with his ex- earlier. She told him she would not allow him to see the children if he did not improve and that he should "do what the doctors recommend." He was reserved, but did ultimately participate in conversation and agreed to continue ECT on a voluntary basis. Marked psychomotor retardation noted. Affect is blunted to flat. Speech is low in tone, slow, delayed. Mood is "fine." TP linear for brief periods, then blocks. TC reveals internal preoccupation, poverty of thought. Underwent bilateral ECT without complication.
--- NOTE | 2018-04-09 16:26 | PDANEPAE ---
ECT Pre Anesthetic Evaluation Allergies/Adverse Reactions: No Known Allergies Allergy (Unverified 10/31/17 15:09) Patient ID confirmed: Yes H&P reviewed: Yes Pre-anesthetic history reviewed: Yes Heart: regular rate and rhythym, no murmur, rub, or gallop Lungs: no respiratory distress, clear to auscultation Mallampati Score: Class 1 ASA Status: II Home Medications: Medication Instructions Recorded Levothyroxine [Synthroid 50 mcg 50 mcg PO DAILY06 #30 tab 12/06/17 (*)] LORazepam [Ativan (*)] 1 mg PO BID@01/01/18 [place] Carbonate ER [Eskalith Cr 450 mg PO BID 01/01/18 450 mg (*)] buPROPion XL [Wellbutrin Xl] 300 mg PO DAILY 01/20/18 Memantine HCl [Namenda 5 mg (*)] 5 mg PO BID 03/19/18 Medication review: completed Patient interviewed: Yes Patient examined: Yes Anesthetic plan discussed with patient: Yes Anesthetic risks discussed with patient: Yes ECT Pre-Anesthetic History - Height & Weight Height: 190.5 cm Weight: 104.326 kg BMI: 28.75 - Anesthesia History Hx Anesthesia Complications (with details): none Family Hx Anesthesia Complications: none - Medications In the Past 6 Months the Patient Has Taken: Thyroid Medication, Tranquilizers - Tobacco/Alcohol/Drug Use Smoking Status: Never smoked Hx Drug/Substance Abuse: No Alcohol Use: No - Prior Surgeries/Hospitalizations Prior Surgeries: none Prior Medical Hospitalizations: none - Pulmonary History ECT Hx Asthma: No Hx Abnormal Chest X-Ray: No Hx Oxygen in Use at Home: No - Cardiovascular History Hx Hypertension: No Currently Uses Hypertension Medication: No Hx Arrhythmias: No Hx Palpitations: No Hx Chest Pain: No Hx Coronary Artery / Peripheral Vascular Disease: No Hx Blood Clot: No - Neurologic History Hx Cerebrovascular Accident: No Hx CT Scan Or MRI Of The Brain: No Hx Epilepsy, Convulsions, Seizures, Or Blackouts: No Hx Frequent Or Severe Headaches: No Hx Numbness: No Hx Neurologic Disorder: No - Dental History Current Dental Issues: None - Endocrine History Hx Diabetes: No Hx Thyroid Problems: Yes Endocrine History Comment: takes Levothyroxine - Renal/Urologic History Hx Renal Disorders: No Hx Urinary Tract Problems: No - Liver History Hx Hepatic Disorders: No - Cancer History Hx Cancer: No - Hematology History Hx Unexplained Bleeding Of Any Type: No Hx Ease Of Bruising: No Hx Anemia: No - Gastrointestinal History Hx Gastroesophogeal Reflux Disease: No Hx Ulcers: No Hx Hiatal Hernia: No Hx Difficulty Swallowing: No - Musculoskeletal Hisory Hx Chronic Pain: No Hx Arthritis: No - Opthalmic History Hx Glaucoma: No Visual Assistive Devices: None Hx Opthalmic Disorders: No - Other Health History Physical Disabililty: No Recent Cough, Cold, or Fever: No Significant Weight Loss In The Last 4 Months: No Possible the Patient Might be : No
[2018-04-10] MEDS: buPROPion XL 150 MG TAB PO SCH (08:44)
[2018-04-10] MEDS: MEMANTINE HCL 5 MG TAB PO SCH ×2 (08:44→20:09)
[2018-04-10] MEDS: LITHIUM CARBONATE ER 450 MG TAB PO SCH ×2 (08:44→20:09)
[2018-04-10] MEDS: LORazepam 1 MG TAB PO SCH ×3 (08:44→20:09)
--- NOTE | 2018-04-10 09:12 | ASMTCMCOM ---
CM Note CM Note Notes: CC contacted ex- Sera at ; to provide her with an update regarding client's willingness to participate in ECT TX. She was very pleased that client made a good choice in continuing ECT TX, etc. She noted, that she will try to call him around noon to "tell him good job." She thanked this procedure writer for everything the hospital has done for the family. No issues.* Date Signed: 04/10/2018 09:12 AM Electronically Signed By:Alhaji Valadez
--- NOTE | 2018-04-10 10:55 | SOAPPROG ---
SOAP Progress Note Assessment/Plan: Assessment: Plan: 03/27/18 15:54 Mood/catatonia: Remains catatonic. Will [facility], hope to do ECT tomorrow. 04/03/18 20:58 Mood/catatonia: Improving with ECT. [facility]. 04/04/18 15:57 Mood/catatonia: Has regressed in setting of treatment refusal. Unclear what best course of action is at this point. He clearly needs ECT, but is refusing this. I could request involuntary ECT but I'm not sure how we would physically force him to comply. Will [facility] for now, continue to build therapeutic alliance. Pt will not allow visits or calls from his mother who is influencial over his thinking and behaviors. 04/07/18 16:00 Mood/catatonia: Continued behavioral regression. Unclear the basis of this, but I believe it is a combination of opposition to prolonged externalized locus of control and inability to effectively process information re: his illness and treatment. Will request involuntary ECT, monitor on meds for now. 04/08/18 17:34 Mood/catatonia: No change. Remains mute. Hope to see change with 's visit and reinvestment in ECT. Will make NPO overnight in case he agrees to proceed. 04/10/18 10:55 Mood/catatonia: Improved with ECT. Pt remains agreeable to proceed at this time. WIll [facility]. Subjective: Pt seen, discussed with staff. More interactive today. States he wants to see his children and will continue ECT. Grooming/hygiene remains poor. Encouraged to shower. Objective: Vital Signs Temp Pulse Resp BP Pulse Ox 36.8 C 82 16 101/70 98 04/10/18 06:00 04/10/18 06:00 04/10/18 06:00 04/10/18 06:00 04/10/18 06:00 04/09/18 04/10/18 04/11/18 05:59 05:59 05:59 Intake Total 830 Balance 830 MSE: Calm, coop. Psychomotor retardation unchanged. Affect is less constricted, better modulated. Mood is "OK." TP is abbreviated, though able to give goal-directed answers to questions. TC reveals no evidence of psychosis. Poverty of thought continues, though a bit more spontaneous. - Time Spent With Patient Time Spent With Patient: 15" ICD10 Worksheet Patient Problems: Problems Problem Status Onset Bipolar disorder Acute Psychotic disorder Acute Schizoaffective disorder Acute
[2018-04-10] MEDS: LEVOTHYROXINE 50 MCG TAB PO SCH (11:11)
[2018-04-11] MEDS ORDERED: ONDANSETRON DISINTEGRATING 4 MG TAB PO PRN (04:00)
[2018-04-11] MEDS ORDERED: THEOPHYLLINE ORAL SOLUTION 80 MG/15 ML UDCUP PO ONE (04:00)
[2018-04-11] MEDS ORDERED: CITRIC ACID/SODIUM CITRATE 30 ML UDCUP PO PRN (04:00)
[2018-04-11] MEDS ORDERED: NS 1,000 ML IV PRN (04:00)
[2018-04-11] MEDS ORDERED: ONDANSETRON DISINTEGRATING 4 MG TAB ONE (06:27)
[2018-04-11] MEDS ORDERED: CITRIC ACID/SODIUM CITRATE 30 ML UDCUP ONE (06:27)
[2018-04-11] MEDS: LORazepam 1 MG TAB PO SCH ×3 (12:31→20:25)
[2018-04-11] MEDS: LITHIUM CARBONATE ER 450 MG TAB PO SCH ×2 (12:31→20:25)
[2018-04-11] MEDS: buPROPion XL 150 MG TAB PO SCH (12:31)
[2018-04-11] MEDS: MEMANTINE HCL 5 MG TAB PO SCH ×2 (12:32→20:25)
[2018-04-11] MEDS: LEVOTHYROXINE 50 MCG TAB PO SCH (12:32)
--- NOTE | 2018-04-11 13:00 | ASMTCMCOM ---
CM Note CM Note Notes: CC checked in with ct. who was in bed. Ct. reported "I am fine" in a very forceful tone. Ct. refused to engage in further conversation and did not respond to any other questions. Date Signed: 04/11/2018 12:49 PM Electronically Signed By:Leila Caceres
--- NOTE | 2018-04-11 16:26 | SOAPPROG ---
SOAP Progress Note Assessment/Plan: Assessment: Plan: 03/27/18 15:54 Mood/catatonia: Remains catatonic. Will [facility], hope to do ECT tomorrow. 04/03/18 20:58 Mood/catatonia: Improving with ECT. [facility]. 04/04/18 15:57 Mood/catatonia: Has regressed in setting of treatment refusal. Unclear what best course of action is at this point. He clearly needs ECT, but is refusing this. I could request involuntary ECT but I'm not sure how we would physically force him to comply. Will [facility] for now, continue to build therapeutic alliance. Pt will not allow visits or calls from his mother who is influencial over his thinking and behaviors. 04/07/18 16:00 Mood/catatonia: Continued behavioral regression. Unclear the basis of this, but I believe it is a combination of opposition to prolonged externalized locus of control and inability to effectively process information re: his illness and treatment. Will request involuntary ECT, monitor on meds for now. 04/08/18 17:34 Mood/catatonia: No change. Remains mute. Hope to see change with 's visit and reinvestment in ECT. Will make NPO overnight in case he agrees to proceed. 04/10/18 10:55 Mood/catatonia: Improved with ECT. Pt remains agreeable to proceed at this time. WIll [facility]. 04/11/18 16:25 Mood/catatonia: Refused ECT again. It is unclear how to consistently motivate pt. Will apply for involuntary treatment to at least have that as a persuasion. Subjective: Pt seen, discussed with staff. Refused to go to ECT after taking theophylline. Lying in bed with eyes open, refuses to talk to me. I engaged pt twice this morning to no avail. TOOL MAKER APPRENTICE also engaged pt with no luck. Completely mute, unresponsive to verbal commands, though alert and present. Objective: Vital Signs Temp Pulse Resp BP Pulse Ox 36.8 C 86 16 130/78 H 98 04/11/18 06:00 04/11/18 06:00 04/11/18 06:00 04/11/18 06:00 04/11/18 06:00 04/10/18 04/11/18 04/12/18 05:59 05:59 05:59 Intake Total 830 Balance 830 MSE: Poorly groomed, uncoop. Affect is flat. Mood is not stated. Staring at the ceiling, nonverbal. - Time Spent With Patient Time Spent With Patient: 15" ICD10 Worksheet Patient Problems: Problems Problem Status Onset Bipolar disorder Acute Psychotic disorder Acute Schizoaffective disorder Acute
--- NOTE | 2018-04-12 07:51 | SOAPPROG ---
SOLOGAN Progress Note Assessment/Plan: Assessment: 37yo CM with Bipolar, catatonia, was lost to f/u and admitted in catatonic state , restarted ECT but recently refusing again. 04/12/18 14:19 slept 9.5hr. variably eating meals. has been taking meds. on eval, pt quickly moved from roommate's side of room (?by desk there or at window) and got into bed pulling covers up and laid flat on back with neck flexed propping up head with hands behind head and stared. when asked what he was just doing, he stated "I've been here". maintained eye contact, staring, often turning head and looking to R (to direction where he had been), and when asked about this, pt abruptly stood up and walked out and interview was ended. had denied AH/VH. not clearly RIS. monotonous tone of voice, poverty of content , no spontaneous speech. slight delay before responding to questions, but less than in past. blunted/resticted affect. mood "okay" then admitted feeling "sad" and rated 7-8/10 denied SI. i/j poor denied med s/e. not hungry. has been refusing some meals. refused ECT yesterday PLAN: cont current meds and cont to encourage ECT as had +response in past will incr Ativan to 2mg TID from 1mg TID for catatonic features antelmo if now refusing ECT Objective: Vital Signs Temp Pulse Resp BP Pulse Ox 36.8 C 86 16 130/78 H 98 04/11/18 06:00 04/11/18 06:00 04/11/18 06:00 04/11/18 06:00 04/11/18 06:00 - Pending Discharge Pending Discharge Within 24 Hours: No Pending Discharge Within 48 Hours: No ICD10 Worksheet Patient Problems: Problems Problem Status Onset Bipolar disorder Acute Psychotic disorder Acute Schizoaffective disorder Acute
[2018-04-12] MEDS: buPROPion XL 150 MG TAB PO SCH (09:00)
[2018-04-12] MEDS: LEVOTHYROXINE 50 MCG TAB PO SCH (09:00)
[2018-04-12] MEDS: MEMANTINE HCL 5 MG TAB PO SCH ×2 (09:00→21:16)
[2018-04-12] MEDS: LORazepam 1 MG TAB PO SCH ×3 (09:00→21:15)
[2018-04-12] MEDS: LITHIUM CARBONATE ER 450 MG TAB PO SCH ×2 (09:00→21:15)
--- NOTE | 2018-04-12 15:36 | ASMTCMCOM ---
CM Note CM Note Notes: Pt. was laying in bed when CC approached. Pt. reports feeling "fine". Pt. stated he slept "not much". Pt stated "yep" when asked if he is getting enough to eat. Pt. reported no issues with his current medications. Pt. did not reply when asked why he declined ECT on Saturday. Pt. did not reply when asked if he is attending groups. Pt. did denies SI, HI, AVH and paranoia. Pt. presents as alert, constricted, malodorous staring at the ceiling, and very guarded. Staff report pt. sleeping 9.5 hours, being medication compliant, and eating minimally. Date Signed: 04/12/2018 03:35 PM Electronically Signed By:Clair Wyman
[2018-04-12] MEDS ORDERED: LORazepam 1 MG TAB PO ONE (16:45)
[2018-04-13] MEDS: LITHIUM CARBONATE ER 450 MG TAB PO SCH ×2 (08:34→20:15)
[2018-04-13] MEDS: buPROPion XL 150 MG TAB PO SCH (08:35)
[2018-04-13] MEDS: LEVOTHYROXINE 50 MCG TAB PO SCH (08:35)
[2018-04-13] MEDS: MEMANTINE HCL 5 MG TAB PO SCH ×2 (08:35→20:14)
[2018-04-13] MEDS: LORazepam 1 MG TAB PO SCH ×3 (08:35→20:14)
--- NOTE | 2018-04-13 18:46 | SOAPPROG ---
SOAP Progress Note Assessment/Plan: Assessment: 37yo CM with Bipolar, catatonia, was lost to f/u and admitted in catatonic state , restarted ECT but recently refusing again. 04/12/18 14:19 slept 9.5hr. variably eating meals. has been taking meds. on eval, pt quickly moved from roommate's side of room (?by desk there or at window) and got into bed pulling covers up and laid flat on back with neck flexed propping up head with hands behind head and stared. when asked what he was just doing, he stated "I've been here". maintained eye contact, staring, often turning head and looking to R (to direction where he had been), and when asked about this, pt abruptly stood up and walked out and interview was ended. had denied AH/VH. not clearly RIS. monotonous tone of voice, poverty of content , no spontaneous speech. slight delay before responding to questions, but less than in past. blunted/resticted affect. mood "okay" then admitted feeling "sad" and rated 7-8/10 denied SI. i/j poor denied med s/e. not hungry. has been refusing some meals. refused ECT yesterday PLAN: cont current meds and cont to encourage ECT as had +response in past will incr Ativan to 2mg TID from 1mg TID for catatonic features antelmo if now refusing ECT 04/13/18 15:00 slept 8.5hr. states he took shower today denied physical complaints or med s/e, incl to incr ativan. admits mood is "depressed" but "no" to SI. asked what he would like to be different for him if anything, "to have my family back together". still with flat affect. denied AH/VH. no delusions noted. little spontaneous speech. lying reclined in bed, head propped up with hands behind head, again periodically turning head and looking to R during interview. when asked about this again "instinct, I guess" discussed his hx of +response to ECT. "Okay put me on the schedule". PLAN: cont current meds. agreeable to ECT Subjective: Medications Generic Name Dose Route Start Last Admin Trade Name Freq PRN Reason Stop Dose Admin Levothyroxine Sodium 50 mcg 03/26/18 10:00 03/30/18 08:26 Synthroid PO 09/22/18 09:59 50 mcg DAILY@1000 SUZETTE Lorazepam 1 mg 03/26/18 09:00 03/30/18 17:26 Ativan PO 09/22/18 08:59 Not Given TID USZETTE Memantine 5 mg 03/26/18 09:00 03/30/18 21:06 Namenda PO 09/22/18 08:59 5 mg BID SUZETTE Bupropion HCl 300 mg 03/26/18 09:00 03/30/18 08:24 Wellbutrin Xl PO 09/22/18 08:59 300 mg DAILY SUZETTE [place] Carbonate 450 mg 03/26/18 21:00 03/30/18 17:26 Eskalith Cr PO 09/22/18 20:59 Not Given BID SUZETTE Objective: Vital Signs Temp Pulse Resp BP Pulse Ox 36.5 C 90 16 109/64 99 04/13/18 06:00 04/13/18 06:00 04/13/18 06:00 04/13/18 06:00 04/13/18 06:00 - Time Spent With Patient Time Spent With Patient: 15min - Pending Discharge Pending Discharge Within 24 Hours: No Pending Discharge Within 48 Hours: No ICD10 Worksheet Patient Problems: Problems Problem Status Onset Bipolar disorder Acute Psychotic disorder Acute Schizoaffective disorder Acute
[2018-04-14] MEDS ORDERED: NS 1,000 ML IV PRN (04:00)
[2018-04-14] MEDS ORDERED: CITRIC ACID/SODIUM CITRATE 30 ML UDCUP PO PRN (04:00)
[2018-04-14] MEDS ORDERED: ONDANSETRON DISINTEGRATING 4 MG TAB PO PRN (04:00)
[2018-04-14] MEDS ORDERED: THEOPHYLLINE ORAL SOLUTION 80 MG/15 ML UDCUP PO ONE (04:00)
[2018-04-14] MEDS ORDERED: ONDANSETRON DISINTEGRATING 4 MG TAB ONE (06:20)
[2018-04-14] MEDS ORDERED: CITRIC ACID/SODIUM CITRATE 30 ML UDCUP ONE (06:20)
--- NOTE | 2018-04-14 07:09 | PDECTPN ---
ECT Progress Note Patient Problems: Problems Problem Status Onset Code Bipolar disorder Acute F31.9 Psychotic disorder Acute F29 Schizoaffective disorder Acute F25.9 Date: 04/14/18 ECT provider: Adan Whelan Anesthesia: Ej Vanegas Stimulus dose (%): 100 Pulse width: 0.5 ECT EMG (sec): 16 ECT EEG (sec): 27 ECT treatment type: bilateral QIDS-SR Total Score: 0 QIDS-SR Question #12 Score: 0 MMSE Total Score (Max = 21): 18 Home medications: Medication Instructions Recorded Levothyroxine [Synthroid 50 mcg 50 mcg PO DAILY06 #30 tab 12/06/17 (*)] LORazepam [Ativan (*)] 1 mg PO BID@01/01/18 [place] Carbonate ER [Eskalith Cr 450 mg PO BID 01/01/18 450 mg (*)] buPROPion XL [Wellbutrin Xl] 300 mg PO DAILY 01/20/18 Memantine HCl [Namenda 5 mg (*)] 5 mg PO BID 03/19/18 Medication review: completed Current treatment plan: acute phase Treatment plan frequency: 3 times per week ECT narrative: Pt presents for continued acute course ECT. Refused last treatment but encouraged by his ex- to treat today. Marked psychomotor retardation continues. Affect is blunted to flat. Speech is low in tone, slow, delayed. Mood is "OK." TP linear for brief periods, then blocks. TC reveals internal preoccupation, poverty of thought. Smiles to humor, though about five seconds delayed. Underwent bilateral ECT without complication.
[2018-04-14] MEDS: MEMANTINE HCL 5 MG TAB PO SCH ×2 (08:20→20:33)
[2018-04-14] MEDS: LITHIUM CARBONATE ER 450 MG TAB PO SCH ×2 (08:20→20:34)
[2018-04-14] MEDS: buPROPion XL 150 MG TAB PO SCH (08:20)
[2018-04-14] MEDS: LORazepam 1 MG TAB PO SCH ×3 (08:21→20:32)
--- NOTE | 2018-04-14 09:20 | POSTANESTH ---
Post Anesthetic Evaluation Cardiovascular Status: Normal, Stable Respiratory Status: Normal, Stable Level of Consciousness/Mental Status: Can Participate in Eval, Mildly Sleepy, Arousable Pain Control: Adequate, Prn Tx Ordered Nausea/Vomiting Control: Adequate, Prn Tx Ordered Complications Possibly Related to Anesthesia: None Noted
[2018-04-14] MEDS: LEVOTHYROXINE 50 MCG TAB PO SCH (11:02)
--- NOTE | 2018-04-14 11:34 | ASMTCMCOM ---
CM Note CM Note Notes: Pt. was eating breakfast when CC approached. Pt. reports attending ECT today and it going "fine". Pt. reports feeling "okay, tired". Pt. reports sleeping "fine". Pt. stated he is eating fine and not wanting to attend groups. Pt. reports no issues with his current medications. Pt denied SI, HI, AVH and paranoia. Pt. reports he is "not sure" about going to ECT on Saturday. Pt. presents as alert, calm, engaging somewhat, short answers, good eye contact, and with pleasant demeanor. Staff report pt. sleeping 13 hours, being medication complaint, and changing his shirt at ECT. Date Signed: 04/14/2018 11:33 AM Electronically Signed By:Clair Wyman
[2018-04-15] MEDS: LITHIUM CARBONATE ER 450 MG TAB PO SCH ×2 (08:50→18:24)
[2018-04-15] MEDS: LORazepam 1 MG TAB PO SCH ×3 (08:51→18:24)
[2018-04-15] MEDS: buPROPion XL 150 MG TAB PO SCH (08:51)
[2018-04-15] MEDS: MEMANTINE HCL 5 MG TAB PO SCH ×2 (08:51→19:02)
[2018-04-15] MEDS: LEVOTHYROXINE 50 MCG TAB PO SCH (09:42)
--- NOTE | 2018-04-15 12:59 | ASMTCMCOM ---
CM Note CM Note Notes: Pt. reports feeling "fine". Pt. stated he slept "fine". Pt. reports not eating breakfast because he "wasn't hungry". Pt. reports no issues with his current medications. Pt. reports not attending groups. CC asked about getting ECT Saturday, pt. stated "not thinking about it right now". Pt. denied SI, HI, AVH and paranoia. Pt and CC reviewed pt's previous behavioral plan. Pt. stated he doesn't think he needs one this hospitalization but is okay with staff reminding him to complete his ADLs. Pt. presents as alert, calm, quiet, guarded, with fair eye contact and lacking insight. Staff report pt. sleeping 8.5 hours and being medication compliant. Pt. is scheduled for ECT on Saturday at 0615 Date Signed: 04/15/2018 12:48 PM Electronically Signed By:Clair Wyman
--- NOTE | 2018-04-15 17:09 | SOAPPROG ---
SOAP Progress Note Assessment/Plan: Assessment: Plan: 03/27/18 15:54 Mood/catatonia: Remains catatonic. Will [facility], hope to do ECT tomorrow. 04/03/18 20:58 Mood/catatonia: Improving with ECT. CCM. 04/04/18 15:57 Mood/catatonia: Has regressed in setting of treatment refusal. Unclear what best course of action is at this point. He clearly needs ECT, but is refusing this. I could request involuntary ECT but I'm not sure how we would physically force him to comply. Will [facility] for now, continue to build therapeutic alliance. Pt will not allow visits or calls from his mother who is influencial over his thinking and behaviors. 04/07/18 16:00 Mood/catatonia: Continued behavioral regression. Unclear the basis of this, but I believe it is a combination of opposition to prolonged externalized locus of control and inability to effectively process information re: his illness and treatment. Will request involuntary ECT, monitor on meds for now. 04/08/18 17:34 Mood/catatonia: No change. Remains mute. Hope to see change with 's visit and reinvestment in ECT. Will make NPO overnight in case he agrees to proceed. 04/10/18 10:55 Mood/catatonia: Improved with ECT. Pt remains agreeable to proceed at this time. WIll [facility]. 04/11/18 16:25 Mood/catatonia: Refused ECT again. It is unclear how to consistently motivate pt. Will apply for involuntary treatment to at least have that as a persuasion. 04/15/18 17:09 Mood/catatonia: Remains catatonic. CCM. Subjective: Pt remains isolative, minimally interactive. Grooming is extremely poor, refusing to shower and saying "I took a shower last night." Spends most of his time in bed. Refused to talk to me earlier in his room and then again later while up and walking in the halls. Objective: Vital Signs Temp Pulse Resp BP Pulse Ox 36.7 C 98 14 110/67 98 04/15/18 06:00 04/15/18 06:00 04/15/18 06:00 04/15/18 06:00 04/15/18 06:00 04/14/18 04/15/18 04/16/18 05:59 05:59 05:59 Intake Total 1000 Balance 1000 MSE: Retarded, slowed, delayed. Marked paucity of speech, does not speak. Affect is flat. Mood is not stated. - Time Spent With Patient Time Spent With Patient: 15" ICD10 Worksheet Patient Problems: Problems Problem Status Onset Bipolar disorder Acute Psychotic disorder Acute Schizoaffective disorder Acute
[2018-04-16] MEDS ORDERED: CITRIC ACID/SODIUM CITRATE 30 ML UDCUP PO PRN (04:00)
[2018-04-16] MEDS ORDERED: THEOPHYLLINE ORAL SOLUTION 80 MG/15 ML UDCUP PO ONE (04:00)
[2018-04-16] MEDS ORDERED: NS 1,000 ML IV PRN (04:00)
[2018-04-16] MEDS ORDERED: ONDANSETRON DISINTEGRATING 4 MG TAB PO PRN (04:00)
[2018-04-16] MEDS ORDERED: ONDANSETRON DISINTEGRATING 4 MG TAB ONE (05:44)
[2018-04-16] MEDS ORDERED: CITRIC ACID/SODIUM CITRATE 30 ML UDCUP ONE (05:44)
[2018-04-16] MEDS ORDERED: fentaNYL 100 MCG/2 ML INJ ONE (05:59)
[2018-04-16] MEDS ORDERED: KETOROLAC 30 MG/1 ML SDV ONE (05:59)
[2018-04-16] MEDS ORDERED: MIDAZOLAM 2 MG/2 ML VIAL ONE (05:59)
[2018-04-16] MEDS ORDERED: ROCURONIUM 50 MG/5 ML VIAL ONE (06:00)
[2018-04-16] MEDS ORDERED: ONDANSETRON 4 MG/2 ML VIAL ONE (06:00)
[2018-04-16] MEDS ORDERED: LORazepam 2 MG/ML INJ ONE (06:00)
[2018-04-16] MEDS ORDERED: GLYCOPYRROLATE 0.2 MG/1 ML VIAL ONE (06:00)
[2018-04-16] MEDS ORDERED: ETOMIDATE 20 MG/10 ML VIAL ONE (06:00)
[2018-04-16] MEDS ORDERED: SUCCINYLCHOLINE CHLORIDE 200 MG/10 ML VIAL ONE (06:01)
--- NOTE | 2018-04-16 06:09 | PDECTPN ---
ECT Progress Note Patient Problems: Problems Problem Status Onset Code Bipolar disorder Acute F31.9 Psychotic disorder Acute F29 Schizoaffective disorder Acute F25.9 Date: 04/16/18 ECT provider: Adan Whelan Anesthesia: Ej Vanegas Stimulus dose (%): 100 Pulse width: 0.5 ECT EMG (sec): 15 ECT EEG (sec): 29 ECT treatment type: bilateral QIDS-SR Total Score: 5 QIDS-SR Question #12 Score: 0 MMSE Total Score (Max = 21): 21 Next ECT date: 04/18/18 Next ECT time: 06:00 Home medications: Medication Instructions Recorded Levothyroxine [Synthroid 50 mcg 50 mcg PO DAILY06 #30 tab 12/06/17 (*)] LORazepam [Ativan (*)] 1 mg PO BID@01/01/18 [place] Carbonate ER [Eskalith Cr 450 mg PO BID 01/01/18 450 mg (*)] buPROPion XL [Wellbutrin Xl] 300 mg PO DAILY 01/20/18 Memantine HCl [Namenda 5 mg (*)] 5 mg PO BID 03/19/18 Medication review: completed Current treatment plan: acute phase Treatment plan frequency: 3 times per week ECT narrative: Pt presents for continued acute course ECT. Cooperative with meds and even cut his fingernails this morning. Grooming remains very poor. Demonstrates little awareness of this. Psychomotor retardation noted. Affect is flat. Speech is low in tone, slow, delayed. Mood is "OK." TP linear for brief periods, then blocks. TC reveals internal preoccupation, poverty of thought. Underwent bilateral ECT without complication.
--- NOTE | 2018-04-16 06:20 | PDANEPAE ---
ECT Pre Anesthetic Evaluation Allergies/Adverse Reactions: No Known Allergies Allergy (Unverified 10/31/17 15:09) Patient ID confirmed: Yes H&P reviewed: Yes Pre-anesthetic history reviewed: Yes Heart: regular rate and rhythym, no murmur, rub, or gallop Lungs: no respiratory distress, clear to auscultation Mallampati Score: Class 1 ASA Status: I Home Medications: Medication Instructions Recorded Levothyroxine [Synthroid 50 mcg 50 mcg PO DAILY06 #30 tab 12/06/17 (*)] LORazepam [Ativan (*)] 1 mg PO BID@01/01/18 [place] Carbonate ER [Eskalith Cr 450 mg PO BID 01/01/18 450 mg (*)] buPROPion XL [Wellbutrin Xl] 300 mg PO DAILY 01/20/18 Memantine HCl [Namenda 5 mg (*)] 5 mg PO BID 03/19/18 Medication review: completed Patient interviewed: Yes Patient examined: Yes Anesthetic plan discussed with patient: Yes Anesthetic risks discussed with patient: Yes ECT Pre-Anesthetic History - Height & Weight Height: 190.5 cm Weight: 104.326 kg BMI: 28.75 - Anesthesia History Hx Anesthesia Complications (with details): none Family Hx Anesthesia Complications: none - Medications In the Past 6 Months the Patient Has Taken: Thyroid Medication, Tranquilizers - Tobacco/Alcohol/Drug Use Smoking Status: Never smoked Hx Drug/Substance Abuse: No Alcohol Use: No - Prior Surgeries/Hospitalizations Prior Surgeries: none Prior Medical Hospitalizations: none - Pulmonary History ECT Hx Asthma: No Hx Abnormal Chest X-Ray: No Hx Oxygen in Use at Home: No - Cardiovascular History Hx Hypertension: No Currently Uses Hypertension Medication: No Hx Arrhythmias: No Hx Palpitations: No Hx Chest Pain: No Hx Coronary Artery / Peripheral Vascular Disease: No Hx Blood Clot: No - Neurologic History Hx Cerebrovascular Accident: No Hx CT Scan Or MRI Of The Brain: No Hx Epilepsy, Convulsions, Seizures, Or Blackouts: No Hx Frequent Or Severe Headaches: No Hx Numbness: No Hx Neurologic Disorder: No - Dental History Current Dental Issues: None - Endocrine History Hx Diabetes: No Hx Thyroid Problems: Yes Endocrine History Comment: takes Levothyroxine - Renal/Urologic History Hx Renal Disorders: No Hx Urinary Tract Problems: No - Liver History Hx Hepatic Disorders: No - Cancer History Hx Cancer: No - Hematology History Hx Unexplained Bleeding Of Any Type: No Hx Ease Of Bruising: No Hx Anemia: No - Gastrointestinal History Hx Gastroesophogeal Reflux Disease: No Hx Ulcers: No Hx Hiatal Hernia: No Hx Difficulty Swallowing: No - Musculoskeletal Hisory Hx Chronic Pain: No Hx Arthritis: No - Opthalmic History Hx Glaucoma: No Visual Assistive Devices: None Hx Opthalmic Disorders: No - Other Health History Physical Disabililty: No Recent Cough, Cold, or Fever: No Significant Weight Loss In The Last 4 Months: No Possible the Patient Might be : No
[2018-04-16] MEDS: LORazepam 1 MG TAB PO SCH ×3 (08:27→21:15)
[2018-04-16] MEDS: MEMANTINE HCL 5 MG TAB PO SCH ×2 (08:27→21:14)
[2018-04-16] MEDS: buPROPion XL 150 MG TAB PO SCH (08:27)
[2018-04-16] MEDS: LITHIUM CARBONATE ER 450 MG TAB PO SCH ×2 (08:27→21:16)
[2018-04-16] MEDS: LEVOTHYROXINE 50 MCG TAB PO SCH (08:30)
--- NOTE | 2018-04-16 16:46 | CPEKG ---
Test Reason : OPEN Blood Pressure : / mmHG Vent. Rate : 077 BPM Atrial Rate : 074 BPM P-R Int : 196 ms QRS Dur : 106 ms QT Int : 396 ms P-R-T Axes : 047 -09 051 degrees QTc Int : 449 ms SINUS RHYTHM Confirmed by Virgie Song ([id number]) on 04/16/2018 4:46:40 PM Referred By: Confirmed By:Virgie Song
[2018-04-17] MEDS: LEVOTHYROXINE 50 MCG TAB PO SCH (09:04)
[2018-04-17] MEDS: LORazepam 1 MG TAB PO SCH ×3 (09:04→18:48)
[2018-04-17] MEDS: LITHIUM CARBONATE ER 450 MG TAB PO SCH ×2 (09:04→17:41)
[2018-04-17] MEDS: buPROPion XL 150 MG TAB PO SCH (09:04)
[2018-04-17] MEDS: MEMANTINE HCL 5 MG TAB PO SCH ×2 (09:04→19:21)
--- NOTE | 2018-04-17 12:21 | ASMTCMCOM ---
CM Note CM Note Notes: The patient reported that he would be ready for discharge soon, although he does not currently have a plan. He indicated that his treatment progress has increased and decreased since being hospitalized. The patient reported that he is not attending groups but is participating in his behavior plan including engaging in activities of daily living such as grooming, brush his teeth, showering, and changing his clothes. The patient reported being compliant with this plan for the past three days consecutively. Date Signed: 04/17/2018 12:21 PM Electronically Signed By:Virgie Durbin
--- NOTE | 2018-04-17 16:08 | SOAPPROG ---
SOAP Progress Note Assessment/Plan: Assessment: Plan: 03/27/18 15:54 Mood/catatonia: Remains catatonic. Will [facility], hope to do ECT tomorrow. 04/03/18 20:58 Mood/catatonia: Improving with ECT. [facility]. 04/04/18 15:57 Mood/catatonia: Has regressed in setting of treatment refusal. Unclear what best course of action is at this point. He clearly needs ECT, but is refusing this. I could request involuntary ECT but I'm not sure how we would physically force him to comply. Will [facility] for now, continue to build therapeutic alliance. Pt will not allow visits or calls from his mother who is influencial over his thinking and behaviors. 04/07/18 16:00 Mood/catatonia: Continued behavioral regression. Unclear the basis of this, but I believe it is a combination of opposition to prolonged externalized locus of control and inability to effectively process information re: his illness and treatment. Will request involuntary ECT, monitor on meds for now. 04/08/18 17:34 Mood/catatonia: No change. Remains mute. Hope to see change with 's visit and reinvestment in ECT. Will make NPO overnight in case he agrees to proceed. 04/10/18 10:55 Mood/catatonia: Improved with ECT. Pt remains agreeable to proceed at this time. WIll [facility]. 04/11/18 16:25 Mood/catatonia: Refused ECT again. It is unclear how to consistently motivate pt. Will apply for involuntary treatment to at least have that as a persuasion. 04/15/18 17:09 Mood/catatonia: Remains catatonic. [facility]. 04/17/18 16:06 Mood/catatonia: Improved with ECT. [facility]. Subjective: Pt seen, discussed with staff. Remains isolative, spending most of his time in bed. More interactive, however, stating he feels better and wants to continue ECT. Grooming slightly improved with behavioral plan and staff encouragement. Objective: Vital Signs Temp Pulse Resp BP Pulse Ox 36.3 C 71 16 113/58 L 99 04/17/18 06:00 04/17/18 06:00 04/17/18 06:00 04/17/18 06:00 04/17/18 06:00 04/16/18 04/17/18 04/18/18 05:59 05:59 05:59 Intake Total 900 Balance 900 MSE: Disheveled, activity retarded. Affect is flat, stable. Mood is "OK." TP delayed, abbreviated, but does give approp. short answers to questions. TC reveals continued internal preoccupation. - Time Spent With Patient Time Spent With Patient: 15" ICD10 Worksheet Patient Problems: Problems Problem Status Onset Bipolar disorder Acute Psychotic disorder Acute Schizoaffective disorder Acute
[2018-04-18] MEDS ORDERED: CITRIC ACID/SODIUM CITRATE 30 ML UDCUP PO PRN (04:00)
[2018-04-18] MEDS ORDERED: THEOPHYLLINE ORAL SOLUTION 80 MG/15 ML UDCUP PO ONE ×2 (04:00→10:30)
[2018-04-18] MEDS ORDERED: ONDANSETRON DISINTEGRATING 4 MG TAB PO PRN (04:00)
[2018-04-18] MEDS ORDERED: NS 1,000 ML IV PRN (04:00)
[2018-04-18] MEDS ORDERED: LIDOCAINE 2% 5 ML SDV ONE (05:46)
[2018-04-18] MEDS ORDERED: CITRIC ACID/SODIUM CITRATE 30 ML UDCUP ONE ×2 (06:18→09:35)
[2018-04-18] MEDS ORDERED: ONDANSETRON DISINTEGRATING 4 MG TAB ONE ×2 (06:18→09:35)
[2018-04-18] MEDS: LORazepam 1 MG TAB PO SCH ×4 (08:55→21:32)
[2018-04-18] MEDS: MEMANTINE HCL 5 MG TAB PO SCH ×3 (08:55→21:32)
[2018-04-18] MEDS: LITHIUM CARBONATE ER 450 MG TAB PO SCH ×3 (08:55→21:32)
[2018-04-18] MEDS: buPROPion XL 150 MG TAB PO SCH ×2 (08:55→12:17)
[2018-04-18] MEDS: LEVOTHYROXINE 50 MCG TAB PO SCH ×2 (08:55→12:18)
[2018-04-18] MEDS ORDERED: ONDANSETRON 4 MG/2 ML VIAL ONE (09:08)
[2018-04-18] MEDS ORDERED: KETOROLAC 30 MG/1 ML SDV ONE (09:08)
[2018-04-18] MEDS ORDERED: fentaNYL 100 MCG/2 ML INJ ONE (09:08)
[2018-04-18] MEDS ORDERED: MIDAZOLAM 2 MG/2 ML VIAL ONE (09:08)
[2018-04-18] MEDS ORDERED: GLYCOPYRROLATE 0.2 MG/1 ML VIAL ONE (09:08)
[2018-04-18] MEDS ORDERED: ETOMIDATE 20 MG/10 ML VIAL ONE (09:09)
[2018-04-18] MEDS ORDERED: SUCCINYLCHOLINE CHLORIDE 200 MG/10 ML VIAL ONE (09:09)
[2018-04-18] MEDS ORDERED: LORazepam 2 MG/ML INJ ONE (09:09)
--- NOTE | 2018-04-18 10:45 | PDANEPAE ---
ANE Past Medical History - Cardiovascular History Hx Hypertension: No Hx Arrhythmias: No Hx Chest Pain: No Hx Coronary Artery / Peripheral Vascular Disease: No Hx Palpitations: No - Pulmonary History Hx Oxygen in Use at Home: No Hx Sleep Apnea: No - Neurologic History Hx Cerebrovascular Accident: No - Endocrine History Hx Diabetes: No - Renal History Hx Renal Disorders: No - Liver History Hx Hepatic Disorders: No - Cancer History Hx Cancer: No - Chronic Pain History Chronic Pain: No - Surgical History Prior Surgeries: none ANE Review of Systems Review of Systems: ANE Patient History - Allergies Allergies/Adverse Reactions: No Known Allergies Allergy (Unverified 10/31/17 15:09) - Home Medications Home medications: home medication list seen and reviewed Home Medications: LORazepam [Ativan (*)] 1 mg PO BID@01/01/18 [Last Taken 03/11/18 18:00] [place] Carbonate ER [Eskalith Cr 450 mg (*)] 450 mg PO BID 01/01/18 [Last Taken 03/11/18 18:00] buPROPion XL [Wellbutrin Xl] 300 mg PO DAILY 01/20/18 [Last Taken Unknown] Memantine HCl [Namenda 5 mg (*)] 5 mg PO BID 03/19/18 [Last Taken Unknown] - Anes Hx Anes Hx: no prior problems - Smoking Hx Smoking Status: Never smoked - Family Anes Hx Family Hx Anesthesia Complications: none ANE Labs/Vital Signs - Vital Signs Blood Pressure: 126/85 Heart Rate: 86 Respiratory Rate: 16 O2 Sat (%): 97 Height: 190.5 cm Weight: 104.326 kg ANE Physical Exam - Airway Neck exam: FROM Mallampati Score: Class 1 Mouth exam: normal dental/mouth exam - Pulmonary Pulmonary: no respiratory distress, no rales or rhonchi, clear to auscultation - Cardiovascular Cardiovascular: regular rate and rhythym, no murmur, rub, or gallop - ASA Status ASA Status: II ANE Anesthesia Plan Anesthesia Plan: GA with mask
--- NOTE | 2018-04-18 11:01 | PDECTPN ---
ECT Progress Note Patient Problems: Problems Problem Status Onset Code Bipolar disorder Acute F31.9 Psychotic disorder Acute F29 Schizoaffective disorder Acute F25.9 Date: 04/18/18 ECT provider: Adan Whelan Anesthesia: Corey Weston Stimulus dose (%): 100 Pulse width: 0.5 ECT EMG (sec): 15 ECT EEG (sec): 30 ECT treatment type: bilateral QIDS-SR Total Score: 5 QIDS-SR Question #12 Score: 0 MMSE Total Score (Max = 21): 21 Next ECT date: 04/21/18 Next ECT time: 06:30 Home medications: Medication Instructions Recorded Levothyroxine [Synthroid 50 mcg 50 mcg PO DAILY06 #30 tab 12/06/17 (*)] LORazepam [Ativan (*)] 1 mg PO BID@01/01/18 [place] Carbonate ER [Eskalith Cr 450 mg PO BID 01/01/18 450 mg (*)] buPROPion XL [Wellbutrin Xl] 300 mg PO DAILY 01/20/18 Memantine HCl [Namenda 5 mg (*)] 5 mg PO BID 03/19/18 Medication review: completed Current treatment plan: acute phase Treatment plan frequency: 3 times per week ECT narrative: Pt presents for continued acute course ECT. REfused at first, but came to treatment after speaking to his . He is quiet and cooperative here. Remains isolative, nearly mute on unit. Clearly benefitted by this week's ECT. Unfortunately, as in the past, when the treatment begins to improve his cognition, he begins to assert himself which is expressed non-specifically as a resistance to further treatment. Psychomotor retardation noted. Affect is flat. Speech is low in tone, slow, delayed. Mood is "OK." TP linear for brief periods, continues to block. TC reveals internal preoccupation, poverty of thought. Underwent bilateral ECT without complication.
--- NOTE | 2018-04-18 11:11 | POSTANESTH ---
Post Anesthetic Evaluation Cardiovascular Status: Normal, Stable, Similar to Pre-Op Cond Respiratory Status: Normal, Stable, Similar to Pre-op Cond. Level of Consciousness/Mental Status: Unconscious Complications Possibly Related to Anesthesia: None Noted
--- NOTE | 2018-04-18 14:15 | ASMTCMCOM ---
CM Note CM Note Notes: Ct. was in bed following ECT when CC checked in with him. Ct. reported that he is doing "fine". He feels a little tired due to ECT. Ct. answers were very short but his affect appears brighter. Date Signed: 04/18/2018 02:13 PM Electronically Signed By:Leila Caceres
[2018-04-19] MEDS: LORazepam 1 MG TAB PO SCH ×3 (08:04→20:07)
[2018-04-19] MEDS: LITHIUM CARBONATE ER 450 MG TAB PO SCH ×2 (08:05→20:06)
[2018-04-19] MEDS: buPROPion XL 150 MG TAB PO SCH (08:05)
[2018-04-19] MEDS: MEMANTINE HCL 5 MG TAB PO SCH ×2 (08:06→20:06)
[2018-04-19] MEDS: LEVOTHYROXINE 50 MCG TAB PO SCH (08:06)
--- NOTE | 2018-04-19 15:35 | SOAPPROG ---
SOAP Progress Note Assessment/Plan: Assessment: Per Dr. Whelan's recent notes: 04/15/18 17:09 Mood/catatonia: Remains catatonic. CCM. 04/17/18 16:06 Mood/catatonia: Improved with ECT. CCM. Subjective: Pt seen, discussed with staff. Remains isolative, spending most of his time in bed. More interactive, however, stating he feels better and wants to continue ECT. Grooming slightly improved with behavioral plan and staff encouragement. PLAN: 04/19/18 15:32 1. Patient more alert and interactive with MD than previous meetings. 2. Was supposed to shower and change clothes every day, but declined this AM when prompted by RN. 3. Agrees to ECT on Saturday. Subjective: Patient was out of his room and present in milieu, though not interacting with peers or participating in milieu activities. He has slightly more range of affect than 2 weeks ago when MD last saw patient, and speech was slightly more spontaneous. Objective: Vital Signs Temp Pulse Resp BP Pulse Ox 36.9 C 85 14 104/55 L 98 04/19/18 06:00 04/19/18 06:00 04/19/18 06:00 04/19/18 06:00 04/19/18 06:00 04/18/18 04/19/18 04/20/18 05:59 05:59 05:59 Intake Total 1070 Balance 1070 MSE: Affect: Flat Mood: "OK" TP: Slow, delayed TC: Impoverished Insight/ Judgment: Poor - Time Spent With Patient Time Spent With Patient: 15" - Pending Discharge Pending Discharge Within 24 Hours: No Pending Discharge Within 48 Hours: No ICD10 Worksheet Patient Problems: Problems Problem Status Onset Bipolar disorder Acute Psychotic disorder Acute Schizoaffective disorder Acute
[2018-04-20] MEDS: buPROPion XL 150 MG TAB PO SCH (08:32)
[2018-04-20] MEDS: MEMANTINE HCL 5 MG TAB PO SCH ×2 (08:33→19:01)
[2018-04-20] MEDS: LITHIUM CARBONATE ER 450 MG TAB PO SCH ×2 (08:33→19:01)
[2018-04-20] MEDS: LORazepam 1 MG TAB PO SCH ×3 (08:33→19:01)
[2018-04-20] MEDS: LEVOTHYROXINE 50 MCG TAB PO SCH (12:31)
--- NOTE | 2018-04-20 13:21 | ASMTCMCOM ---
CM Note CM Note Notes: The patient walked away from this writer producer after a short response. He reported that he did not have a plan for discharge.The patient was observed visiting with his family today; it seemed successful. The patient is not participating in groups and is observed spending most of his time in his room. He completed he ADL checklist before bed on April 19. Date Signed: 04/20/2018 01:19 PM Electronically Signed By:Virgie Durbin
--- NOTE | 2018-04-20 14:09 | SOAPPROG ---
SOAP Progress Note Assessment/Plan: Assessment: Per Dr. Whelan's recent notes: 04/15/18 17:09 Mood/catatonia: Remains catatonic. CCM. 04/17/18 16:06 Mood/catatonia: Improved with ECT. CCM. Subjective: Pt seen, discussed with staff. Remains isolative, spending most of his time in bed. More interactive, however, stating he feels better and wants to continue ECT. Grooming slightly improved with behavioral plan and staff encouragement. PLAN: 04/19/18 15:32 1. Patient more alert and interactive with MD than previous meetings. 2. Was supposed to shower and change clothes every day, but declined this AM when prompted by RN. 3. Agrees to ECT on Saturday. PLAN: 04/20/18 14:07 1. Isolating in his room most of the day. However, he did have a visit from his ex- and children which seemed to temporarily engage him. 2. Patient did take shower last night and wash his clothes per his support plan. 3. ECT on Saturday. Subjective: Patient still has flat affect and response latency. He isolates in room and interacts very little with staff or peers. He did shower and change clothes last night which is part of his behavior plan. Objective: Vital Signs Temp Pulse Resp BP Pulse Ox 36.4 C 80 14 100/59 L 97 04/20/18 06:00 04/20/18 06:00 04/20/18 06:00 04/20/18 06:00 04/20/18 06:00 04/19/18 04/20/18 04/21/18 05:59 05:59 05:59 Intake Total 1070 Balance 1070 MSE: Affect: Constricted Mood: "OK" TP: Paucity, response latency TC: Denies any SI/HI, impoverished speech Insight/Judgment: Improved - Time Spent With Patient Time Spent With Patient: 15" - Pending Discharge Pending Discharge Within 24 Hours: No Pending Discharge Within 48 Hours: No ICD10 Worksheet Patient Problems: Problems Problem Status Onset Bipolar disorder Acute Psychotic disorder Acute Schizoaffective disorder Acute
[2018-04-21] MEDS: MEMANTINE HCL 5 MG TAB PO SCH ×3 (09:26→20:16)
[2018-04-21] MEDS: buPROPion XL 150 MG TAB PO SCH ×2 (09:26→14:38)
[2018-04-21] MEDS: LITHIUM CARBONATE ER 450 MG TAB PO SCH ×3 (09:26→20:16)
[2018-04-21] MEDS: LEVOTHYROXINE 50 MCG TAB PO SCH ×2 (09:26→14:38)
[2018-04-21] MEDS ORDERED: CITRIC ACID/SODIUM CITRATE 30 ML UDCUP PO PRN (09:39)
[2018-04-21] MEDS ORDERED: ONDANSETRON DISINTEGRATING 4 MG TAB PO PRN (09:39)
[2018-04-21] MEDS ORDERED: NS 1,000 ML IV PRN (09:39)
[2018-04-21] MEDS ORDERED: LIDOCAINE 2% 5 ML SDV ONE (09:52)
[2018-04-21] MEDS ORDERED: THEOPHYLLINE ORAL SOLUTION 80 MG/15 ML UDCUP PO ONE (11:00)
[2018-04-21] MEDS ORDERED: ONDANSETRON DISINTEGRATING 4 MG TAB ONE (11:54)
[2018-04-21] MEDS ORDERED: CITRIC ACID/SODIUM CITRATE 30 ML UDCUP ONE ×5 (11:57→11:58)
[2018-04-21] MEDS ORDERED: fentaNYL 100 MCG/2 ML INJ ONE (12:29)
[2018-04-21] MEDS ORDERED: LORazepam 2 MG/ML INJ ONE (12:29)
[2018-04-21] MEDS ORDERED: MIDAZOLAM 2 MG/2 ML VIAL ONE (12:29)
--- NOTE | 2018-04-21 12:35 | PDANEPAE ---
ECT Pre Anesthetic Evaluation Allergies/Adverse Reactions: No Known Allergies Allergy (Unverified 10/31/17 15:09) Patient ID confirmed: Yes H&P reviewed: Yes Pre-anesthetic history reviewed: Yes Heart: regular rate and rhythym Lungs: clear to auscultation Mallampati Score: Class 2 ASA Status: III Home Medications: Medication Instructions Recorded Levothyroxine [Synthroid 50 mcg 50 mcg PO DAILY06 #30 tab 12/06/17 (*)] LORazepam [Ativan (*)] 1 mg PO BID@01/01/18 [place] Carbonate ER [Eskalith Cr 450 mg PO BID 01/01/18 450 mg (*)] buPROPion XL [Wellbutrin Xl] 300 mg PO DAILY 01/20/18 Memantine HCl [Namenda 5 mg (*)] 5 mg PO BID 03/19/18 Patient interviewed: Yes Patient examined: Yes See previous record: Yes Anesthetic plan discussed with patient: Yes Anesthetic risks discussed with patient: Yes ECT Pre-Anesthetic History - Height & Weight Height: 190.5 cm Weight: 104 kg BMI: 28.66 - Anesthesia History Hx Anesthesia Complications (with details): none Family Hx Anesthesia Complications: none - Medications In the Past 6 Months the Patient Has Taken: Thyroid Medication, Tranquilizers - Tobacco/Alcohol/Drug Use Smoking Status: Never smoked Hx Drug/Substance Abuse: No Alcohol Use: No - Prior Surgeries/Hospitalizations Prior Surgeries: none Prior Medical Hospitalizations: none - Pulmonary History ECT Hx Asthma: No Hx Abnormal Chest X-Ray: No Hx Oxygen in Use at Home: No - Cardiovascular History Hx Hypertension: No Currently Uses Hypertension Medication: No Hx Arrhythmias: No Hx Palpitations: No Hx Chest Pain: No Hx Coronary Artery / Peripheral Vascular Disease: No Hx Blood Clot: No - Neurologic History Hx Cerebrovascular Accident: No Hx CT Scan Or MRI Of The Brain: No Hx Epilepsy, Convulsions, Seizures, Or Blackouts: No Hx Frequent Or Severe Headaches: No Hx Numbness: No Hx Neurologic Disorder: No - Dental History Current Dental Issues: None - Endocrine History Hx Diabetes: No Hx Thyroid Problems: Yes Endocrine History Comment: takes Levothyroxine - Renal/Urologic History Hx Renal Disorders: No Hx Urinary Tract Problems: No - Liver History Hx Hepatic Disorders: No - Cancer History Hx Cancer: No - Hematology History Hx Unexplained Bleeding Of Any Type: No Hx Ease Of Bruising: No Hx Anemia: No - Gastrointestinal History Hx Gastroesophogeal Reflux Disease: No Hx Ulcers: No Hx Hiatal Hernia: No Hx Difficulty Swallowing: No - Musculoskeletal Hisory Hx Chronic Pain: No Hx Arthritis: No - Opthalmic History Hx Glaucoma: No Visual Assistive Devices: None Hx Opthalmic Disorders: No - Other Health History Physical Disabililty: No Recent Cough, Cold, or Fever: No Significant Weight Loss In The Last 4 Months: No Possible the Patient Might be : No
--- NOTE | 2018-04-21 12:36 | ASMTCMCOM ---
CM Note CM Note Notes: CC met with client briefly for daily check-in. Client appears to be doing better than previous days (slighty); client still gravely disabled. However, client has taken a shower and put on clean clothes other the weekend. Client is on the unit more and less isolating than before. Client's affect is distracted, slightly paranoid and restricted. Date Signed: 04/21/2018 12:35 PM Electronically Signed By:Alhaji Valadez
--- NOTE | 2018-04-21 12:39 | PDECTPN ---
ECT Progress Note Patient Problems: Problems Problem Status Onset Code Bipolar disorder Acute F31.9 Psychotic disorder Acute F29 Schizoaffective disorder Acute F25.9 Date: 04/21/18 ECT provider: Adan Whelan Anesthesia: Ej Vanegas Stimulus dose (%): 100 Pulse width: 0.5 ECT EMG (sec): 18 ECT EEG (sec): 32 ECT treatment type: bilateral QIDS-SR Total Score: 2 QIDS-SR Question #12 Score: 0 MMSE Total Score (Max = 21): 21 Next ECT date: 04/23/18 Home medications: Medication Instructions Recorded Levothyroxine [Synthroid 50 mcg 50 mcg PO DAILY06 #30 tab 12/06/17 (*)] LORazepam [Ativan (*)] 1 mg PO BID@01/01/18 [place] Carbonate ER [Eskalith Cr 450 mg PO BID 01/01/18 450 mg (*)] buPROPion XL [Wellbutrin Xl] 300 mg PO DAILY 01/20/18 Memantine HCl [Namenda 5 mg (*)] 5 mg PO BID 03/19/18 Medication review: completed Current treatment plan: acute phase Treatment plan frequency: 3 times per week ECT narrative: Pt presents for continued acute course ECT. Agreeable to treatment today without resistance. Uneventful WE. Enjoyed visit with ex-w and kids. Bright and conversant about this today. Remains isolative, minimally interactive with others. Staff notes that despite his stated enjoyment of the visit, he was not very interactive with family. Psychomotor retardation noted. Affect is flat, though more animated when talking about family. Speech is low in tone, slow, less delayed. Mood is "OK. " TP linear for brief periods, less blocking. TC reveals internal preoccupation, poverty of thought. Underwent bilateral ECT without complication.
[2018-04-21] MEDS: LORazepam 1 MG TAB PO SCH ×3 (14:59→20:18)
[2018-04-22] MEDS: buPROPion XL 150 MG TAB PO SCH (08:22)
[2018-04-22] MEDS: LITHIUM CARBONATE ER 450 MG TAB PO SCH ×2 (08:22→18:18)
[2018-04-22] MEDS: LORazepam 1 MG TAB PO SCH ×3 (08:22→18:18)
[2018-04-22] MEDS: MEMANTINE HCL 5 MG TAB PO SCH ×2 (08:22→19:17)
[2018-04-22] MEDS: LEVOTHYROXINE 50 MCG TAB PO SCH (10:15)
--- NOTE | 2018-04-22 19:24 | SOAPPROG ---
SOAP Progress Note Assessment/Plan: Assessment: Plan: 03/27/18 15:54 Mood/catatonia: Remains catatonic. Will [facility], hope to do ECT tomorrow. 04/03/18 20:58 Mood/catatonia: Improving with ECT. CCM. 04/04/18 15:57 Mood/catatonia: Has regressed in setting of treatment refusal. Unclear what best course of action is at this point. He clearly needs ECT, but is refusing this. I could request involuntary ECT but I'm not sure how we would physically force him to comply. Will [facility] for now, continue to build therapeutic alliance. Pt will not allow visits or calls from his mother who is influencial over his thinking and behaviors. 04/07/18 16:00 Mood/catatonia: Continued behavioral regression. Unclear the basis of this, but I believe it is a combination of opposition to prolonged externalized locus of control and inability to effectively process information re: his illness and treatment. Will request involuntary ECT, monitor on meds for now. 04/08/18 17:34 Mood/catatonia: No change. Remains mute. Hope to see change with 's visit and reinvestment in ECT. Will make NPO overnight in case he agrees to proceed. 04/10/18 10:55 Mood/catatonia: Improved with ECT. Pt remains agreeable to proceed at this time. WIll [facility]. 04/11/18 16:25 Mood/catatonia: Refused ECT again. It is unclear how to consistently motivate pt. Will apply for involuntary treatment to at least have that as a persuasion. 04/15/18 17:09 Mood/catatonia: Remains catatonic. [facility]. 04/17/18 16:06 Mood/catatonia: Improved with ECT. [facility]. 04/22/18 19:23 Mood/catatonia: Continued improvement. Remains severely ill. [facility]. Subjective: Pt seen, discussed with staff. Reports feeling "fine." Up walking in [place]. Minimally interactive. Compliant with meds. Showered today. Objective: Vital Signs Temp Pulse Resp BP Pulse Ox 36.5 C 76 14 126/69 H 98 04/22/18 06:00 04/22/18 06:00 04/22/18 06:00 04/22/18 06:00 04/22/18 06:00 04/21/18 04/22/18 04/23/18 05:59 05:59 05:59 Intake Total 840 Balance 840 MSE: Disheveled, agitated, pacing. Affect is constricted, stable. Mumbling to himself. Mood is "fine" TP linear for two to three sentence questions. TC reveals continued paranoia, internal focus. - Time Spent With Patient Time Spent With Patient: 15" ICD10 Worksheet Patient Problems: Problems Problem Status Onset Bipolar disorder Acute Psychotic disorder Acute Schizoaffective disorder Acute
[2018-04-23] MEDS: buPROPion XL 150 MG TAB PO SCH (09:19)
[2018-04-23] MEDS: MEMANTINE HCL 5 MG TAB PO SCH ×2 (09:20→19:34)
[2018-04-23] MEDS: LEVOTHYROXINE 50 MCG TAB PO SCH (09:20)
[2018-04-23] MEDS ORDERED: CITRIC ACID/SODIUM CITRATE 30 ML UDCUP PO PRN (10:30)
[2018-04-23] MEDS ORDERED: ONDANSETRON DISINTEGRATING 4 MG TAB PO PRN (10:30)
[2018-04-23] MEDS ORDERED: NS 1,000 ML IV PRN (10:30)
[2018-04-23] MEDS ORDERED: THEOPHYLLINE ORAL SOLUTION 80 MG/15 ML UDCUP PO ONE (10:30)
[2018-04-23] MEDS ORDERED: KETOROLAC 30 MG/1 ML SDV ONE (11:08)
[2018-04-23] MEDS ORDERED: LABETALOL HCL 5 MG/ML 20 ML MDV ONE (11:08)
[2018-04-23] MEDS ORDERED: ONDANSETRON 4 MG/2 ML VIAL ONE (11:08)
[2018-04-23] MEDS ORDERED: GLYCOPYRROLATE 0.2 MG/1 ML VIAL ONE (11:08)
[2018-04-23] MEDS ORDERED: ETOMIDATE 20 MG/10 ML VIAL ONE (11:08)
[2018-04-23] MEDS ORDERED: fentaNYL 100 MCG/2 ML INJ ONE (11:08)
[2018-04-23] MEDS ORDERED: SUCCINYLCHOLINE CHLORIDE 200 MG/10 ML VIAL ONE (11:09)
[2018-04-23] MEDS ORDERED: LORazepam 2 MG/ML INJ ONE (11:09)
[2018-04-23] MEDS ORDERED: CITRIC ACID/SODIUM CITRATE 30 ML UDCUP ONE (11:14)
[2018-04-23] MEDS ORDERED: ONDANSETRON DISINTEGRATING 4 MG TAB ONE (11:14)
--- NOTE | 2018-04-23 12:18 | PDANEPAE ---
ANE Past Medical History - Cardiovascular History Hx Hypertension: No Hx Arrhythmias: No Hx Chest Pain: No Hx Coronary Artery / Peripheral Vascular Disease: No Hx Palpitations: No - Pulmonary History Hx Oxygen in Use at Home: No Hx Sleep Apnea: No - Neurologic History Hx Cerebrovascular Accident: No - Endocrine History Hx Diabetes: No - Renal History Hx Renal Disorders: No - Liver History Hx Hepatic Disorders: No - Cancer History Hx Cancer: No - Chronic Pain History Chronic Pain: No - Surgical History Prior Surgeries: none ANE Review of Systems Review of Systems: ANE Patient History - Allergies Allergies/Adverse Reactions: No Known Allergies Allergy (Unverified 10/31/17 15:09) - Home Medications Home Medications: LORazepam [Ativan (*)] 1 mg PO BID@01/01/18 [Last Taken 03/11/18 18:00] [place] Carbonate ER [Eskalith Cr 450 mg (*)] 450 mg PO BID 01/01/18 [Last Taken 03/11/18 18:00] buPROPion XL [Wellbutrin Xl] 300 mg PO DAILY 01/20/18 [Last Taken Unknown] Memantine HCl [Namenda 5 mg (*)] 5 mg PO BID 03/19/18 [Last Taken Unknown] - NPO status NPO Status: no food or drink >8 hours - Anes Hx Anes Hx: no prior problems - Smoking Hx Smoking Status: Never smoked - Family Anes Hx Family Hx Anesthesia Complications: none ANE Labs/Vital Signs - Vital Signs Blood Pressure: 110/63 Heart Rate: 73 Respiratory Rate: 16 O2 Sat (%): 98 Height: 190.5 cm Weight: 104 kg ANE Physical Exam - Airway Neck exam: FROM Mallampati Score: Class 2 Mouth exam: normal dental/mouth exam - Pulmonary Pulmonary: no respiratory distress, no rales or rhonchi, clear to auscultation - Cardiovascular Cardiovascular: regular rate and rhythym, no murmur, rub, or gallop - ASA Status ASA Status: II ANE Anesthesia Plan Anesthesia Plan: GA with mask
--- NOTE | 2018-04-23 12:23 | PDECTPN ---
ECT Progress Note Patient Problems: Problems Problem Status Onset Code Bipolar disorder Acute F31.9 Psychotic disorder Acute F29 Schizoaffective disorder Acute F25.9 Date: 04/23/18 ECT provider: Adan Whelan Anesthesia: Corey Weston Stimulus dose (%): 100 Pulse width: 0.5 ECT EMG (sec): 14 ECT EEG (sec): 26 ECT treatment type: bilateral QIDS-SR Total Score: 6 QIDS-SR Question #12 Score: 0 MMSE Total Score (Max = 21): 21 Home medications: Medication Instructions Recorded Levothyroxine [Synthroid 50 mcg 50 mcg PO DAILY06 #30 tab 12/06/17 (*)] LORazepam [Ativan (*)] 1 mg PO BID@01/01/18 [place] Carbonate ER [Eskalith Cr 450 mg PO BID 01/01/18 450 mg (*)] buPROPion XL [Wellbutrin Xl] 300 mg PO DAILY 01/20/18 Memantine HCl [Namenda 5 mg (*)] 5 mg PO BID 03/19/18 Medication review: completed Current treatment plan: acute phase Treatment plan frequency: 3 times per week ECT narrative: Pt presents for continued acute course ECT. Agreeable to treatment today without resistance. States he is "ready to get this done." More interactive on unit, though continues to prefer to lie in his bed or pace. Compliant with meds. Psychomotor retardation present, but improved. Affect is flat, though smiles spontaneously. Speech is low in tone, slow, less delayed. Mood is "OK." TP abbreviated, linear for brief periods, less blocking. TC reveals internal preoccupation, poverty of thought. Underwent bilateral ECT without complication.
[2018-04-23] MEDS: LORazepam 1 MG TAB PO SCH ×3 (13:50→19:34)
[2018-04-23] MEDS: LITHIUM CARBONATE ER 450 MG TAB PO SCH ×2 (13:50→19:34)
[2018-04-24] MEDS: LORazepam 1 MG TAB PO SCH ×3 (08:21→18:19)
[2018-04-24] MEDS: buPROPion XL 150 MG TAB PO SCH (08:21)
[2018-04-24] MEDS: LITHIUM CARBONATE ER 450 MG TAB PO SCH ×2 (08:21→18:19)
[2018-04-24] MEDS: MEMANTINE HCL 5 MG TAB PO SCH ×2 (08:21→19:23)
[2018-04-24] MEDS: LEVOTHYROXINE 50 MCG TAB PO SCH (10:21)
--- NOTE | 2018-04-24 15:41 | SOAPPROG ---
SOAP Progress Note Assessment/Plan: Assessment: Plan: 03/27/18 15:54 Mood/catatonia: Remains catatonic. Will [facility], hope to do ECT tomorrow. 04/03/18 20:58 Mood/catatonia: Improving with ECT. [facility]. 04/04/18 15:57 Mood/catatonia: Has regressed in setting of treatment refusal. Unclear what best course of action is at this point. He clearly needs ECT, but is refusing this. I could request involuntary ECT but I'm not sure how we would physically force him to comply. Will [facility] for now, continue to build therapeutic alliance. Pt will not allow visits or calls from his mother who is influencial over his thinking and behaviors. 04/07/18 16:00 Mood/catatonia: Continued behavioral regression. Unclear the basis of this, but I believe it is a combination of opposition to prolonged externalized locus of control and inability to effectively process information re: his illness and treatment. Will request involuntary ECT, monitor on meds for now. 04/08/18 17:34 Mood/catatonia: No change. Remains mute. Hope to see change with 's visit and reinvestment in ECT. Will make NPO overnight in case he agrees to proceed. 04/10/18 10:55 Mood/catatonia: Improved with ECT. Pt remains agreeable to proceed at this time. WIll [facility]. 04/11/18 16:25 Mood/catatonia: Refused ECT again. It is unclear how to consistently motivate pt. Will apply for involuntary treatment to at least have that as a persuasion. 04/15/18 17:09 Mood/catatonia: Remains catatonic. [facility]. 04/17/18 16:06 Mood/catatonia: Improved with ECT. [facility]. 04/22/18 19:23 Mood/catatonia: Continued improvement. Remains severely ill. [facility]. 04/24/18 15:41 Mood/catatonia: Continued gradual improvement. [facility]. Subjective: Pt seen, discussed with staff. Up and out of room today. Attended several groups yesterday. More spontaneous, interactive. Affect better modulated. Grooming remains very poor. Intake adequate. Unable to commit to returning to his mother's home at this point or allowing her to participate in his care. Objective: Vital Signs Temp Pulse Resp BP Pulse Ox 36.5 C 78 16 113/59 L 98 04/24/18 06:00 04/24/18 06:00 04/24/18 06:00 04/24/18 06:00 04/24/18 06:00 04/23/18 04/24/18 04/25/18 05:59 05:59 05:59 Intake Total 900 Balance 900 MSE: Moderately agitated, coop. Affect is constricted, though better modulated. Mood is "OK." TP linear, abbreviated. TC reveals some possible paranoia about his family. - Time Spent With Patient Time Spent With Patient: 15" ICD10 Worksheet Patient Problems: Problems Problem Status Onset Bipolar disorder Acute Psychotic disorder Acute Schizoaffective disorder Acute
[2018-04-25] MEDS ORDERED: LIDOCAINE 2% 5 ML SDV ONE (08:40)
[2018-04-25] MEDS ORDERED: CITRIC ACID/SODIUM CITRATE 30 ML UDCUP PO PRN (09:00)
[2018-04-25] MEDS ORDERED: ONDANSETRON DISINTEGRATING 4 MG TAB PO PRN (09:00)
[2018-04-25] MEDS ORDERED: THEOPHYLLINE ORAL SOLUTION 80 MG/15 ML UDCUP PO ONE (09:00)
[2018-04-25] MEDS ORDERED: NS 1,000 ML IV PRN (09:00)
[2018-04-25] MEDS ORDERED: CITRIC ACID/SODIUM CITRATE 30 ML UDCUP ONE (09:07)
[2018-04-25] MEDS ORDERED: ONDANSETRON DISINTEGRATING 4 MG TAB ONE (09:07)
--- NOTE | 2018-04-25 09:29 | PDANEPAE ---
ECT Pre Anesthetic Evaluation Allergies/Adverse Reactions: No Known Allergies Allergy (Unverified 10/31/17 15:09) Patient ID confirmed: Yes H&P reviewed: Yes Pre-anesthetic history reviewed: Yes Heart: regular rate and rhythym Lungs: no respiratory distress Mallampati Score: Class 1 ASA Status: I Home Medications: Medication Instructions Recorded Levothyroxine [Synthroid 50 mcg 50 mcg PO DAILY06 #30 tab 12/06/17 (*)] LORazepam [Ativan (*)] 1 mg PO BID@01/01/18 [place] Carbonate ER [Eskalith Cr 450 mg PO BID 01/01/18 450 mg (*)] buPROPion XL [Wellbutrin Xl] 300 mg PO DAILY 01/20/18 Memantine HCl [Namenda 5 mg (*)] 5 mg PO BID 03/19/18 Medication review: completed Patient interviewed: Yes Patient examined: Yes See previous record: Yes Anesthetic plan discussed with patient: Yes Anesthetic risks discussed with patient: Yes ECT Pre-Anesthetic History - Height & Weight Height: 190.5 cm Weight: 104 kg BMI: 28.66 - Anesthesia History Hx Anesthesia Complications (with details): none Family Hx Anesthesia Complications: none - Medications In the Past 6 Months the Patient Has Taken: Thyroid Medication, Tranquilizers - Tobacco/Alcohol/Drug Use Smoking Status: Never smoked Hx Drug/Substance Abuse: No Alcohol Use: No - Prior Surgeries/Hospitalizations Prior Surgeries: none Prior Medical Hospitalizations: none - Pulmonary History ECT Hx Asthma: No Hx Abnormal Chest X-Ray: No Hx Oxygen in Use at Home: No - Cardiovascular History Hx Hypertension: No Currently Uses Hypertension Medication: No Hx Arrhythmias: No Hx Palpitations: No Hx Chest Pain: No Hx Coronary Artery / Peripheral Vascular Disease: No Hx Blood Clot: No - Neurologic History Hx Cerebrovascular Accident: No Hx CT Scan Or MRI Of The Brain: No Hx Epilepsy, Convulsions, Seizures, Or Blackouts: No Hx Frequent Or Severe Headaches: No Hx Numbness: No Hx Neurologic Disorder: No - Dental History Current Dental Issues: None - Endocrine History Hx Diabetes: No Hx Thyroid Problems: Yes Endocrine History Comment: takes Levothyroxine - Renal/Urologic History Hx Renal Disorders: No Hx Urinary Tract Problems: No - Liver History Hx Hepatic Disorders: No - Cancer History Hx Cancer: No - Hematology History Hx Unexplained Bleeding Of Any Type: No Hx Ease Of Bruising: No Hx Anemia: No - Gastrointestinal History Hx Gastroesophogeal Reflux Disease: No Hx Ulcers: No Hx Hiatal Hernia: No Hx Difficulty Swallowing: No - Musculoskeletal Hisory Hx Chronic Pain: No Hx Arthritis: No - Opthalmic History Hx Glaucoma: No Visual Assistive Devices: None Hx Opthalmic Disorders: No - Other Health History Physical Disabililty: No Recent Cough, Cold, or Fever: No Significant Weight Loss In The Last 4 Months: No Possible the Patient Might be : No
--- NOTE | 2018-04-25 09:39 | PDECTPN ---
ECT Progress Note Patient Problems: Problems Problem Status Onset Code Bipolar disorder Acute F31.9 Psychotic disorder Acute F29 Schizoaffective disorder Acute F25.9 Date: 04/25/18 ECT provider: Adan Whelan Anesthesia: Jesse Whiteside Stimulus dose (%): 100 Pulse width: 0.5 ECT EMG (sec): 17 ECT EEG (sec): 26 ECT treatment type: bilateral QIDS-SR Total Score: 6 QIDS-SR Question #12 Score: 0 MMSE Total Score (Max = 21): 21 Home medications: Medication Instructions Recorded Levothyroxine [Synthroid 50 mcg 50 mcg PO DAILY06 #30 tab 12/06/17 (*)] LORazepam [Ativan (*)] 1 mg PO BID@01/01/18 [place] Carbonate ER [Eskalith Cr 450 mg PO BID 01/01/18 450 mg (*)] buPROPion XL [Wellbutrin Xl] 300 mg PO DAILY 01/20/18 Memantine HCl [Namenda 5 mg (*)] 5 mg PO BID 03/19/18 Medication review: completed Current treatment plan: acute phase Treatment plan frequency: 3 times per week ECT narrative: Pt presents for continued acute course ECT. Doing much better. Conversant and interactive. Cooperative with all phases of care. Grooming remains poor. Psychomotor retardation continues, but improved. Affect is better modulated. Speech is low in tone, slow, less delayed. Mood is "OK." TP abbreviated, linear for brief periods, less blocking. TC reveals internal preoccupation, poverty of thought. Underwent bilateral ECT without complication.
--- NOTE | 2018-04-25 10:02 | PDHPUP ---
History & Physical Update H&P update statement: This history and physical update is based on an assessment of the patient which was completed after admission or registration (within 24 hours), but prior to the surgery/procedure. H&P update: H&P reviewed & patient examined
[2018-04-25] MEDS: LITHIUM CARBONATE ER 450 MG TAB PO SCH ×2 (10:54→20:27)
[2018-04-25] MEDS: buPROPion XL 150 MG TAB PO SCH (10:54)
[2018-04-25] MEDS: MEMANTINE HCL 5 MG TAB PO SCH ×2 (10:54→20:28)
[2018-04-25] MEDS: LORazepam 1 MG TAB PO SCH ×3 (10:54→20:28)
--- NOTE | 2018-04-25 10:56 | PDECTIHP ---
ECT Interval H&P Patient Problems: Problems Problem Status Onset Code Bipolar disorder Acute F31.9 Psychotic disorder Acute F29 Schizoaffective disorder Acute F25.9 Chief complaint: Patient wishes to continue ECT and requires a medical status update to do so. General health: In collaboration with Anesthesiology, potential benefits of treatment outweigh risk. Focused physical exam including relevant body area/organ sys: alert & oriented, moves all extremities, no progressively increasing headaches, no ataxia, no evidence of delirium, no focal sensory deficits, no focal weakness, speech normal
[2018-04-25] MEDS: LEVOTHYROXINE 50 MCG TAB PO SCH (11:13)
[2018-04-26] MEDS: LORazepam 1 MG TAB PO SCH ×3 (08:29→21:00)
[2018-04-26] MEDS: LITHIUM CARBONATE ER 450 MG TAB PO SCH ×2 (08:29→21:00)
[2018-04-26] MEDS: MEMANTINE HCL 5 MG TAB PO SCH ×2 (08:29→21:00)
[2018-04-26] MEDS: buPROPion XL 150 MG TAB PO SCH (08:29)
[2018-04-26] MEDS: LEVOTHYROXINE 50 MCG TAB PO SCH (10:18)
--- NOTE | 2018-04-26 17:41 | SOAPPROG ---
SOAP Progress Note Assessment/Plan: Assessment: Per Dr. Whelan's recent notes: 04/15/18 17:09 Mood/catatonia: Remains catatonic. CCM. 04/17/18 16:06 Mood/catatonia: Improved with ECT. CCM. Subjective: Pt seen, discussed with staff. Remains isolative, spending most of his time in bed. More interactive, however, stating he feels better and wants to continue ECT. Grooming slightly improved with behavioral plan and staff encouragement. PLAN: 04/19/18 15:32 1. Patient more alert and interactive with MD than previous meetings. 2. Was supposed to shower and change clothes every day, but declined this AM when prompted by RN. 3. Agrees to ECT on Saturday. PLAN: 04/20/18 14:07 1. Isolating in his room most of the day. However, he did have a visit from his ex- and children which seemed to temporarily engage him. 2. Patient did take shower last night and wash his clothes per his support plan. 3. ECT on Saturday. PLAN: 04/26/18 17:39 1. Brighter affect, smiling during family visit. 2. Out of room, present in milieu for dinner and watching TV with peers. 3. Next ECT on Sat Subjective: Patient lying in bed in his room, denies any complaints. Very limited answers to questions. Staff observed patient laughing and interacting appropriately with kids, even gave his 5 yo son a high-five. Objective: Vital Signs Temp Pulse Resp BP Pulse Ox 36.5 C 78 16 117/83 H 100 04/26/18 06:00 04/26/18 06:00 04/26/18 06:00 04/26/18 06:00 04/26/18 06:00 04/25/18 04/26/18 04/27/18 05:59 05:59 05:59 Intake Total 700 Balance 700 MSE: Affect: More range Mood: "OK" TP: Linear, paucity of speech TC: Impoverishment, denies SI Insight/Judgment: Improving - Time Spent With Patient Time Spent With Patient: 15" - Pending Discharge Pending Discharge Within 24 Hours: No Pending Discharge Within 48 Hours: No ICD10 Worksheet Patient Problems: Problems Problem Status Onset Bipolar disorder Acute Psychotic disorder Acute Schizoaffective disorder Acute
[2018-04-27] MEDS: MEMANTINE HCL 5 MG TAB PO SCH ×2 (08:20→20:56)
[2018-04-27] MEDS: buPROPion XL 150 MG TAB PO SCH (08:20)
[2018-04-27] MEDS: LORazepam 1 MG TAB PO SCH ×3 (08:20→20:57)
[2018-04-27] MEDS: LITHIUM CARBONATE ER 450 MG TAB PO SCH ×2 (08:21→20:57)
[2018-04-27] MEDS: LEVOTHYROXINE 50 MCG TAB PO SCH (09:54)
--- NOTE | 2018-04-27 16:13 | ASMTCMCOM ---
CM Note CM Note Notes: CC received a voice mail from pt's exWOC, Sera ([phone]). exWOC stated pt. called her Saturday evening, which she felt, at first, was an improvement. exWOC stated pt was "vage in discussing something major happening on 05/23". exWOC stated pt. would not explain "while on the phone". exWOC stated she believes pt. is having "delusions of survaliance". exWOC stated pt. told her he can hear her voice in his head while on the unit, exWOC explained pt meant "almost tellepathically" Date Signed: 04/27/2018 04:12 PM Electronically Signed By:Clair Wyman
--- NOTE | 2018-04-27 18:48 | SOAPPROG ---
SOAP Progress Note Assessment/Plan: Assessment: Per Dr. Whelan's recent notes: 04/15/18 17:09 Mood/catatonia: Remains catatonic. CCM. 04/17/18 16:06 Mood/catatonia: Improved with ECT. CCM. Subjective: Pt seen, discussed with staff. Remains isolative, spending most of his time in bed. More interactive, however, stating he feels better and wants to continue ECT. Grooming slightly improved with behavioral plan and staff encouragement. PLAN: 04/19/18 15:32 1. Patient more alert and interactive with MD than previous meetings. 2. Was supposed to shower and change clothes every day, but declined this AM when prompted by RN. 3. Agrees to ECT on Saturday. PLAN: 04/20/18 14:07 1. Isolating in his room most of the day. However, he did have a visit from his ex- and children which seemed to temporarily engage him. 2. Patient did take shower last night and wash his clothes per his support plan. 3. ECT on Saturday. PLAN: 04/26/18 17:39 1. Brighter affect, smiling during family visit. 2. Out of room, present in milieu for dinner and watching TV with peers. 3. Next ECT on Sat PLAN: 04/27/18 18:45 1. Isolates in room most of the day, but visible in evening pacing, standing up watching TV, keeps distance from peers. 2. left message for CC today citing concerns that patient presents as paranoid and delusional on phone with her. She claims he is talking about "something bad" happening on 05/23 but won't say what. He also seems paranoid about surveillance in hospital per Sera (ex-). 3. Next ECT on Saturday Subjective: Isolates in room most of the day, but visible in evening pacing, standing up watching TV, keeps distance from peers. left message for CC today citing concerns that patient presents as paranoid and delusional on phone with her. She claims he is talking about "something bad" happening on 05/23 but won't say what. He also seems paranoid about surveillance in hospital per Sera (ex-). Objective: Vital Signs Temp Pulse Resp BP Pulse Ox 36.4 C 77 16 113/62 98 04/27/18 06:00 04/27/18 06:00 04/27/18 06:00 04/27/18 06:00 04/27/18 06:00 04/26/18 04/27/18 04/28/18 05:59 05:59 05:59 Intake Total 700 Balance 700 MSE: Affect: Flat Mood: "OK" TP: Paucity, goal-directed TC: No SI/HI, impoverishment of content Insight/Judgment: Improving - Time Spent With Patient Time Spent With Patient: 15" - Pending Discharge Pending Discharge Within 24 Hours: No Pending Discharge Within 48 Hours: No ICD10 Worksheet Patient Problems: Problems Problem Status Onset Bipolar disorder Acute Psychotic disorder Acute Schizoaffective disorder Acute
[2018-04-28] MEDS ORDERED: NS 1,000 ML IV PRN (04:00)
[2018-04-28] MEDS ORDERED: CITRIC ACID/SODIUM CITRATE 30 ML UDCUP PO PRN (04:00)
[2018-04-28] MEDS ORDERED: THEOPHYLLINE ORAL SOLUTION 80 MG/15 ML UDCUP PO ONE (04:00)
[2018-04-28] MEDS ORDERED: ONDANSETRON DISINTEGRATING 4 MG TAB PO PRN (04:00)
[2018-04-28] MEDS ORDERED: LIDOCAINE 2% 5 ML SDV ONE (05:52)
[2018-04-28] MEDS ORDERED: ONDANSETRON DISINTEGRATING 4 MG TAB ONE (06:00)
[2018-04-28] MEDS ORDERED: CITRIC ACID/SODIUM CITRATE 30 ML UDCUP ONE (06:00)
[2018-04-28] MEDS ORDERED: MIDAZOLAM 2 MG/2 ML VIAL ONE (06:38)
[2018-04-28] MEDS ORDERED: ETOMIDATE 20 MG/10 ML VIAL ONE (06:38)
[2018-04-28] MEDS ORDERED: fentaNYL 100 MCG/2 ML INJ ONE (06:38)
[2018-04-28] MEDS ORDERED: GLYCOPYRROLATE 0.2 MG/1 ML VIAL ONE (06:38)
[2018-04-28] MEDS ORDERED: KETOROLAC 30 MG/1 ML SDV ONE (06:39)
[2018-04-28] MEDS ORDERED: ROCURONIUM 50 MG/5 ML VIAL ONE (06:39)
[2018-04-28] MEDS ORDERED: SUCCINYLCHOLINE CHLORIDE 200 MG/10 ML VIAL ONE (06:39)
[2018-04-28] MEDS ORDERED: ONDANSETRON 4 MG/2 ML VIAL ONE (06:40)
--- NOTE | 2018-04-28 06:42 | PDECTPN ---
ECT Progress Note Patient Problems: Problems Problem Status Onset Code Bipolar disorder Acute F31.9 Psychotic disorder Acute F29 Schizoaffective disorder Acute F25.9 Date: 04/28/18 ECT provider: Adan Whelan Anesthesia: Ej Vanegas Stimulus dose (%): 100 Pulse width: 0.5 ECT EMG (sec): 18 ECT EEG (sec): 31 ECT treatment type: bilateral QIDS-SR Total Score: 7 QIDS-SR Question #12 Score: 0 MMSE Total Score (Max = 21): 21 Next ECT date: 04/30/18 Next ECT time: 06:15 Home medications: Medication Instructions Recorded Levothyroxine [Synthroid 50 mcg 50 mcg PO DAILY06 #30 tab 12/06/17 (*)] LORazepam [Ativan (*)] 1 mg PO BID@01/01/18 [place] Carbonate ER [Eskalith Cr 450 mg PO BID 01/01/18 450 mg (*)] buPROPion XL [Wellbutrin Xl] 300 mg PO DAILY 01/20/18 Memantine HCl [Namenda 5 mg (*)] 5 mg PO BID 03/19/18 Medication review: completed Current treatment plan: acute phase Treatment plan frequency: 3 times per week ECT narrative: Pt presents for continued acute course ECT. Continues to improve. More conversant and spontaneous this morning. He reports having a good visit with family over the weekend. Have not received report from staff on that yet today. Compliant with treatments. Poorly groomed, though wearing a new shirt. Speech is more spontaneous, fluent. Affect is flat. Mood is "OK." TP is linear for longer periods. TC reveals no overt psychosis. Underwent bilateral ECT without complication. Doing better with ECT. CCM.
[2018-04-28] MEDS ORDERED: LORazepam 2 MG/ML INJ ONE (06:53)
--- NOTE | 2018-04-28 06:59 | PDANEPAE ---
ECT Pre Anesthetic Evaluation Allergies/Adverse Reactions: No Known Allergies Allergy (Unverified 10/31/17 15:09) Patient ID confirmed: Yes H&P reviewed: Yes Pre-anesthetic history reviewed: Yes Heart: regular rate and rhythym Lungs: no respiratory distress Mallampati Score: Class 1 ASA Status: III Home Medications: Medication Instructions Recorded Levothyroxine [Synthroid 50 mcg 50 mcg PO DAILY06 #30 tab 12/06/17 (*)] LORazepam [Ativan (*)] 1 mg PO BID@01/01/18 [place] Carbonate ER [Eskalith Cr 450 mg PO BID 01/01/18 450 mg (*)] buPROPion XL [Wellbutrin Xl] 300 mg PO DAILY 01/20/18 Memantine HCl [Namenda 5 mg (*)] 5 mg PO BID 03/19/18 Medication review: completed Patient interviewed: Yes Patient examined: Yes See previous record: Yes Anesthetic plan discussed with patient: Yes Anesthetic risks discussed with patient: Yes ECT Pre-Anesthetic History - Height & Weight Height: 190.5 cm Weight: 87.288 kg BMI: 24.05 - Anesthesia History Hx Anesthesia Complications (with details): none Family Hx Anesthesia Complications: none - Medications In the Past 6 Months the Patient Has Taken: Thyroid Medication, Tranquilizers - Tobacco/Alcohol/Drug Use Smoking Status: Never smoked Hx Drug/Substance Abuse: No Alcohol Use: No - Prior Surgeries/Hospitalizations Prior Surgeries: none Prior Medical Hospitalizations: none - Pulmonary History ECT Hx Asthma: No Hx Abnormal Chest X-Ray: No Hx Oxygen in Use at Home: No - Cardiovascular History Hx Hypertension: No Currently Uses Hypertension Medication: No Hx Arrhythmias: No Hx Palpitations: No Hx Chest Pain: No Hx Coronary Artery / Peripheral Vascular Disease: No Hx Blood Clot: No - Neurologic History Hx Cerebrovascular Accident: No Hx CT Scan Or MRI Of The Brain: No Hx Epilepsy, Convulsions, Seizures, Or Blackouts: No Hx Frequent Or Severe Headaches: No Hx Numbness: No Hx Neurologic Disorder: No - Dental History Current Dental Issues: None - Endocrine History Hx Diabetes: No Hx Thyroid Problems: Yes Endocrine History Comment: takes Levothyroxine - Renal/Urologic History Hx Renal Disorders: No Hx Urinary Tract Problems: No - Liver History Hx Hepatic Disorders: No - Cancer History Hx Cancer: No - Hematology History Hx Unexplained Bleeding Of Any Type: No Hx Ease Of Bruising: No Hx Anemia: No - Gastrointestinal History Hx Gastroesophogeal Reflux Disease: No Hx Ulcers: No Hx Hiatal Hernia: No Hx Difficulty Swallowing: No - Musculoskeletal Hisory Hx Chronic Pain: No Hx Arthritis: No - Opthalmic History Hx Glaucoma: No Visual Assistive Devices: None Hx Opthalmic Disorders: No - Other Health History Physical Disabililty: No Recent Cough, Cold, or Fever: No Significant Weight Loss In The Last 4 Months: No Possible the Patient Might be : No
--- NOTE | 2018-04-28 07:00 | POSTANESTH ---
Post Anesthetic Evaluation Cardiovascular Status: Normal, Stable, Similar to Pre-Op Cond Respiratory Status: Normal, Stable, Similar to Pre-op Cond. Level of Consciousness/Mental Status: Unconscious Pain Control: Adequate, Prn Tx Ordered Nausea/Vomiting Control: Adequate, Prn Tx Ordered Complications Possibly Related to Anesthesia: None Noted
[2018-04-28] MEDS: buPROPion XL 150 MG TAB PO SCH (08:07)
[2018-04-28] MEDS: LITHIUM CARBONATE ER 450 MG TAB PO SCH ×2 (08:08→20:59)
[2018-04-28] MEDS: LORazepam 1 MG TAB PO SCH ×3 (08:08→20:59)
[2018-04-28] MEDS: MEMANTINE HCL 5 MG TAB PO SCH ×2 (08:08→20:59)
[2018-04-28] MEDS: LEVOTHYROXINE 50 MCG TAB PO SCH (09:59)
--- NOTE | 2018-04-28 14:02 | ASMTCMCOM ---
CM Note CM Note Notes: Pt. was resting in bed when CC approached. Pt. reports feeling "okay". Pt. stated he slept "fine". Pt. stated he is eating well and attending a "couple" groups. Pt. reports no issues with his current medications. Pt. stated he had ECT this morning and it went "fine". When asked if he feels ECT is helping, pt stated "hard to say, seems like it's fine". Pt. stated he will have ECT again on Saturday. Pt. denied SI, HI, AVH and paranoia. CC spoke with pt' seraSera HUNTER ([phone]) exWOC stated pt. called her on Saturday. exWOC stated pt. told her they had a discussion about 05/23 when pt was at [facility], exWOC stated she was never at [facility] with pt. exWOC stated pt. stated he was communicating with her telepathically exWOC stated pt. "had surveillance paranoia, on and off for last 2 years". exWOC stated pt acted this way 2 weeks prior to having a manic episode. Date Signed: 04/28/2018 02:02 PM Electronically Signed By:Clair Wyman
[2018-04-29] MEDS: buPROPion XL 150 MG TAB PO SCH (08:30)
[2018-04-29] MEDS: LORazepam 1 MG TAB PO SCH ×3 (08:30→18:04)
[2018-04-29] MEDS: LITHIUM CARBONATE ER 450 MG TAB PO SCH ×2 (08:30→18:04)
[2018-04-29] MEDS: MEMANTINE HCL 5 MG TAB PO SCH ×2 (08:30→19:23)
[2018-04-29] MEDS: LEVOTHYROXINE 50 MCG TAB PO SCH (10:00)
--- NOTE | 2018-04-29 11:27 | ASMTCMCOM ---
CM Note CM Note Notes: Client appears to doing better than previous days (on the unit more, was able to sign release of information to [facility], etc). CC reached out to [facility] regarding planning a family meeting for this week, called ; no answer left detailed VM with all necessary return contact information, etc. Waiting to hear back from [facility] on family meeting. Date Signed: 04/29/2018 11:27 AM Electronically Signed By:Alhaji Valadez
--- NOTE | 2018-04-29 11:44 | ASMTCMCOM ---
CM Note CM Note Notes: CC confirmed family meeting for this 05/01 at 11:30am, etc. Date Signed: 04/29/2018 11:44 AM Electronically Signed By:Alhaji Valadez
--- NOTE | 2018-04-29 21:05 | SOAPPROG ---
SOAP Progress Note Assessment/Plan: Assessment: Plan: 03/27/18 15:54 Mood/catatonia: Remains catatonic. Will [facility], hope to do ECT tomorrow. 04/03/18 20:58 Mood/catatonia: Improving with ECT. [facility]. 04/04/18 15:57 Mood/catatonia: Has regressed in setting of treatment refusal. Unclear what best course of action is at this point. He clearly needs ECT, but is refusing this. I could request involuntary ECT but I'm not sure how we would physically force him to comply. Will [facility] for now, continue to build therapeutic alliance. Pt will not allow visits or calls from his mother who is influencial over his thinking and behaviors. 04/07/18 16:00 Mood/catatonia: Continued behavioral regression. Unclear the basis of this, but I believe it is a combination of opposition to prolonged externalized locus of control and inability to effectively process information re: his illness and treatment. Will request involuntary ECT, monitor on meds for now. 04/08/18 17:34 Mood/catatonia: No change. Remains mute. Hope to see change with 's visit and reinvestment in ECT. Will make NPO overnight in case he agrees to proceed. 04/10/18 10:55 Mood/catatonia: Improved with ECT. Pt remains agreeable to proceed at this time. WIll [facility]. 04/11/18 16:25 Mood/catatonia: Refused ECT again. It is unclear how to consistently motivate pt. Will apply for involuntary treatment to at least have that as a persuasion. 04/15/18 17:09 Mood/catatonia: Remains catatonic. [facility]. 04/17/18 16:06 Mood/catatonia: Improved with ECT. [facility]. 04/22/18 19:23 Mood/catatonia: Continued improvement. Remains severely ill. [facility]. 04/24/18 15:41 Mood/catatonia: Continued gradual improvement. [facility]. 04/29/18 21:05 Mood/catatonia: Continued improvement. Remains gravely disabled and likely psychotic. Previous trials of atypical antipsychotic medications have severely worsened conditiion. Due to marked improvement iwth ECT with [facility] for now. Subjective: Pt seen, discussed with staff. Up walking, but not pacing. Interactive and reasonably spontaneous. Agrees to go to mother's home at d/c. I received a VM on my cell phone from his ex- re: her concerns about paranoid thoughts he expressed over the weekend. He denies this to me. Objective: Vital Signs Temp Pulse Resp BP Pulse Ox 36.4 C 75 14 113/70 98 04/29/18 06:00 04/29/18 06:00 04/29/18 06:00 04/29/18 06:00 04/29/18 06:00 04/28/18 04/29/18 04/30/18 05:59 05:59 05:59 Intake Total 900 Balance 900 MSE: Moderately retarded, coop, interactive. Affect is blunted, but not flat. Mood is "OK." TP is more spontaneous, linear, though still quite abbreviated with frequent derailment and internal preoccupation. A&Ox4, sensorium and cognition is clear/good. No SI/HI/.15" ICD10 Worksheet Patient Problems: Problems Problem Status Onset Bipolar disorder Acute Psychotic disorder Acute Schizoaffective disorder Acute
[2018-04-30] MEDS ORDERED: THEOPHYLLINE ORAL SOLUTION 80 MG/15 ML UDCUP PO ONE (04:00)
[2018-04-30] MEDS ORDERED: ONDANSETRON DISINTEGRATING 4 MG TAB PO PRN (04:00)
[2018-04-30] MEDS ORDERED: CITRIC ACID/SODIUM CITRATE 30 ML UDCUP PO PRN (04:00)
[2018-04-30] MEDS ORDERED: NS 1,000 ML IV PRN (04:00)
[2018-04-30] MEDS ORDERED: ONDANSETRON DISINTEGRATING 4 MG TAB ONE (05:47)
[2018-04-30] MEDS ORDERED: CITRIC ACID/SODIUM CITRATE 30 ML UDCUP ONE (05:47)
[2018-04-30] MEDS ORDERED: MIDAZOLAM 2 MG/2 ML VIAL ONE (06:45)
[2018-04-30] MEDS ORDERED: fentaNYL 100 MCG/2 ML INJ ONE (06:45)
[2018-04-30] MEDS ORDERED: ETOMIDATE 20 MG/10 ML VIAL ONE (06:46)
[2018-04-30] MEDS ORDERED: LORazepam 2 MG/ML INJ ONE (06:47)
--- NOTE | 2018-04-30 06:56 | PDECTPN ---
ECT Progress Note Patient Problems: Problems Problem Status Onset Code Bipolar disorder Acute F31.9 Psychotic disorder Acute F29 Schizoaffective disorder Acute F25.9 Date: 04/30/18 ECT provider: Adan Whelan Anesthesia: Marcelina Thrasher Stimulus dose (%): 100 Pulse width: 0.5 ECT EMG (sec): 19 ECT EEG (sec): 28 ECT treatment type: bilateral QIDS-SR Total Score: 6 QIDS-SR Question #12 Score: 0 MMSE Total Score (Max = 21): 21 Next ECT date: 05/02/18 Next ECT time: 06:30 Home medications: Medication Instructions Recorded Levothyroxine [Synthroid 50 mcg 50 mcg PO DAILY06 #30 tab 12/06/17 (*)] LORazepam [Ativan (*)] 1 mg PO BID@01/01/18 [place] Carbonate ER [Eskalith Cr 450 mg PO BID 01/01/18 450 mg (*)] buPROPion XL [Wellbutrin Xl] 300 mg PO DAILY 01/20/18 Memantine HCl [Namenda 5 mg (*)] 5 mg PO BID 03/19/18 Medication review: completed Current treatment plan: acute phase Treatment plan frequency: 3 times per week ECT narrative: Pt presents for continued acute course ECT. Continues to improve, more interactive this morning. Talked about baseball, smiled spontaneously, appreciated humor. Showered on his own yesterday. Better groomed, coop. Speech is more spontaneous, fluent. Affect is better modulated, smiles several times. Mood is "OK." TP is linear for longer periods. TC reveals no overt psychosis. Underwent bilateral ECT without complication. Doing better with ECT. CCM.
[2018-04-30] MEDS: buPROPion XL 150 MG TAB PO SCH (08:03)
[2018-04-30] MEDS: LITHIUM CARBONATE ER 450 MG TAB PO SCH ×2 (08:04→20:49)
[2018-04-30] MEDS: LORazepam 1 MG TAB PO SCH ×3 (08:04→20:49)
[2018-04-30] MEDS: MEMANTINE HCL 5 MG TAB PO SCH ×2 (08:04→20:49)
[2018-04-30] MEDS: LEVOTHYROXINE 50 MCG TAB PO SCH (10:33)
--- NOTE | 2018-04-30 11:18 | ASMTCMCOM ---
CM Note CM Note Notes: Client continues to do better than previous days, affect is brighter as well as participating in unit activities. Family meeting is scheduled for (05/01) at 11:30am with provider, DARRIN and this specification writer to work on discharge planning as well as address any concerns from family members. Client suggests "doing ok," today while denying anxiety, depression, S.I-H/I and/or feelings of AVH.* Date Signed: 04/30/2018 11:18 AM Electronically Signed By:Alhaji Valadez
[2018-05-01] MEDS: buPROPion XL 150 MG TAB PO SCH (09:33)
[2018-05-01] MEDS: MEMANTINE HCL 5 MG TAB PO SCH ×2 (09:33→20:06)
[2018-05-01] MEDS: LITHIUM CARBONATE ER 450 MG TAB PO SCH ×2 (09:33→20:07)
[2018-05-01] MEDS: LORazepam 1 MG TAB PO SCH ×3 (09:33→20:06)
[2018-05-01] MEDS: LEVOTHYROXINE 50 MCG TAB PO SCH (10:03)
--- NOTE | 2018-05-01 14:28 | ASMTCMCOM ---
CM Note CM Note Notes: Client participated in treatment team meeting today. Client continues to do better than previous days, brighter affect, more interaction with staff and peers. Family meeting with client, MOC and provider went well. Insurance confirmed client is approved through weekend. CC contacted [facility] to provide her the news. CC tentatively scheduled another family meeting for Friday 05/04 at 11:30am to go over discharge plan, etc. Client would be discharging to [facility] care with continued ECT treatment, etc. Date Signed: 05/01/2018 02:27 PM Electronically Signed By:Alhaji Valadez
--- NOTE | 2018-05-01 21:08 | SOAPPROG ---
SOAP Progress Note Assessment/Plan: Assessment: Plan: 03/27/18 15:54 Mood/catatonia: Remains catatonic. Will [facility], hope to do ECT tomorrow. 04/03/18 20:58 Mood/catatonia: Improving with ECT. CCM. 04/04/18 15:57 Mood/catatonia: Has regressed in setting of treatment refusal. Unclear what best course of action is at this point. He clearly needs ECT, but is refusing this. I could request involuntary ECT but I'm not sure how we would physically force him to comply. Will [facility] for now, continue to build therapeutic alliance. Pt will not allow visits or calls from his mother who is influencial over his thinking and behaviors. 04/07/18 16:00 Mood/catatonia: Continued behavioral regression. Unclear the basis of this, but I believe it is a combination of opposition to prolonged externalized locus of control and inability to effectively process information re: his illness and treatment. Will request involuntary ECT, monitor on meds for now. 04/08/18 17:34 Mood/catatonia: No change. Remains mute. Hope to see change with 's visit and reinvestment in ECT. Will make NPO overnight in case he agrees to proceed. 04/10/18 10:55 Mood/catatonia: Improved with ECT. Pt remains agreeable to proceed at this time. WIll [facility]. 04/11/18 16:25 Mood/catatonia: Refused ECT again. It is unclear how to consistently motivate pt. Will apply for involuntary treatment to at least have that as a persuasion. 04/15/18 17:09 Mood/catatonia: Remains catatonic. [facility]. 04/17/18 16:06 Mood/catatonia: Improved with ECT. CCM. 04/22/18 19:23 Mood/catatonia: Continued improvement. Remains severely ill. CCM. 04/24/18 15:41 Mood/catatonia: Continued gradual improvement. CCM. 04/29/18 21:05 Mood/catatonia: Continued improvement. Remains gravely disabled and likely psychotic. Previous trials of atypical antipsychotic medications have severely worsened conditiion. Due to marked improvement iwth ECT with [facility] for now. 05/01/18 21:07 Mood/catatonia: Much improved overall. CCM. Subjective: Pt seen, discussed with staff. Participated in family meeting with mother present. This went well. He voiced desire to leave hospital and see kids. He continued to improve in re: spontaneity of thoughts and actions. All agreed that he is much better. Affect is blunted, but he smiled spontaneously, HUGE, when laughing about kids during meeting. Mood is "pretty good, not depressed." TP more spontaneous, fluent. Better modulated. TC reveals no mention of paranoid delusions. Objective: Vital Signs Temp Pulse Resp BP Pulse Ox 36.2 C 79 16 122/80 H 98 05/01/18 06:00 05/01/18 06:00 05/01/18 06:00 05/01/18 06:00 05/01/18 06:00 04/30/18 05/01/18 05/02/18 05:59 05:59 05:59 Intake Total 700 Balance 700 - Time Spent With Patient Time Spent With Patient: 35" ICD10 Worksheet Patient Problems: Problems Problem Status Onset Bipolar disorder Acute Psychotic disorder Acute Schizoaffective disorder Acute
[2018-05-02] MEDS ORDERED: THEOPHYLLINE ORAL SOLUTION 80 MG/15 ML UDCUP PO ONE (04:00)
[2018-05-02] MEDS ORDERED: CITRIC ACID/SODIUM CITRATE 30 ML UDCUP PO PRN (04:00)
[2018-05-02] MEDS ORDERED: ONDANSETRON DISINTEGRATING 4 MG TAB PO PRN (04:00)
[2018-05-02] MEDS ORDERED: NS 1,000 ML IV PRN (04:00)
[2018-05-02] MEDS ORDERED: ONDANSETRON DISINTEGRATING 4 MG TAB ONE (05:59)
[2018-05-02] MEDS ORDERED: CITRIC ACID/SODIUM CITRATE 30 ML UDCUP ONE (05:59)
[2018-05-02] MEDS ORDERED: ETOMIDATE 20 MG/10 ML VIAL ONE (06:55)
[2018-05-02] MEDS ORDERED: fentaNYL 100 MCG/2 ML INJ ONE (06:55)
[2018-05-02] MEDS ORDERED: MIDAZOLAM 2 MG/2 ML VIAL ONE (06:55)
[2018-05-02] MEDS ORDERED: LORazepam 2 MG/ML INJ ONE (06:56)
--- NOTE | 2018-05-02 07:04 | PDECTPN ---
ECT Progress Note Patient Problems: Problems Problem Status Onset Code Bipolar disorder Acute F31.9 Psychotic disorder Acute F29 Schizoaffective disorder Acute F25.9 Date: 05/02/18 ECT provider: Adan Whelan Anesthesia: Marcelina Thrasher Stimulus dose (%): 100 Pulse width: 0.5 ECT EMG (sec): 16 ECT EEG (sec): 28 ECT treatment type: bilateral QIDS-SR Total Score: 5 QIDS-SR Question #12 Score: 0 MMSE Total Score (Max = 21): 21 Next ECT date: 05/05/18 Next ECT time: 06:30 Home medications: Medication Instructions Recorded Levothyroxine [Synthroid 50 mcg 50 mcg PO DAILY06 #30 tab 12/06/17 (*)] LORazepam [Ativan (*)] 1 mg PO BID@01/01/18 [place] Carbonate ER [Eskalith Cr 450 mg PO BID 01/01/18 450 mg (*)] buPROPion XL [Wellbutrin Xl] 300 mg PO DAILY 01/20/18 Memantine HCl [Namenda 5 mg (*)] 5 mg PO BID 03/19/18 Medication review: completed Current treatment plan: acute phase Treatment plan frequency: 3 times per week ECT narrative: Pt presents for continued acute course ECT. Doing better daily. Appropriately conversant this morning. Offers no c/o's. Poorly groomed, coop, interactive. Speech is more spontaneous, fluent. Affect is brighter, smiles several times. Mood is "OK." TP is linear for longer periods. TC reveals no overt psychosis. Underwent bilateral ECT without complication. Continued improvement. CCM.
--- NOTE | 2018-05-02 07:07 | PDANEPAE ---
ECT Pre Anesthetic Evaluation Allergies/Adverse Reactions: No Known Allergies Allergy (Unverified 10/31/17 15:09) Patient ID confirmed: Yes H&P reviewed: Yes Pre-anesthetic history reviewed: Yes Heart: regular rate and rhythym Lungs: no respiratory distress Mallampati Score: Class 1 ASA Status: II Home Medications: Medication Instructions Recorded Levothyroxine [Synthroid 50 mcg 50 mcg PO DAILY06 #30 tab 12/06/17 (*)] LORazepam [Ativan (*)] 1 mg PO BID@01/01/18 [place] Carbonate ER [Eskalith Cr 450 mg PO BID 01/01/18 450 mg (*)] buPROPion XL [Wellbutrin Xl] 300 mg PO DAILY 01/20/18 Memantine HCl [Namenda 5 mg (*)] 5 mg PO BID 03/19/18 Medication review: completed Patient interviewed: Yes Patient examined: Yes Anesthetic plan discussed with patient: Yes Anesthetic risks discussed with patient: Yes ECT Pre-Anesthetic History - Height & Weight Height: 190.5 cm Weight: 87.6 kg BMI: 24.14 - Anesthesia History Hx Anesthesia Complications (with details): none Family Hx Anesthesia Complications: none - Medications In the Past 6 Months the Patient Has Taken: Thyroid Medication, Tranquilizers - Tobacco/Alcohol/Drug Use Smoking Status: Never smoked Hx Drug/Substance Abuse: No Alcohol Use: No - Prior Surgeries/Hospitalizations Prior Surgeries: none Prior Medical Hospitalizations: none - Pulmonary History ECT Hx Asthma: No Hx Abnormal Chest X-Ray: No Hx Oxygen in Use at Home: No - Cardiovascular History Hx Hypertension: No Currently Uses Hypertension Medication: No Hx Arrhythmias: No Hx Palpitations: No Hx Chest Pain: No Hx Coronary Artery / Peripheral Vascular Disease: No Hx Blood Clot: No - Neurologic History Hx Cerebrovascular Accident: No Hx CT Scan Or MRI Of The Brain: No Hx Epilepsy, Convulsions, Seizures, Or Blackouts: No Hx Frequent Or Severe Headaches: No Hx Numbness: No Hx Neurologic Disorder: No - Dental History Current Dental Issues: None - Endocrine History Hx Diabetes: No Hx Thyroid Problems: Yes Endocrine History Comment: takes Levothyroxine - Renal/Urologic History Hx Renal Disorders: No Hx Urinary Tract Problems: No - Liver History Hx Hepatic Disorders: No - Cancer History Hx Cancer: No - Hematology History Hx Unexplained Bleeding Of Any Type: No Hx Ease Of Bruising: No Hx Anemia: No - Gastrointestinal History Hx Gastroesophogeal Reflux Disease: No Hx Ulcers: No Hx Hiatal Hernia: No Hx Difficulty Swallowing: No - Musculoskeletal Hisory Hx Chronic Pain: No Hx Arthritis: No - Opthalmic History Hx Glaucoma: No Visual Assistive Devices: None Hx Opthalmic Disorders: No - Other Health History Physical Disabililty: No Recent Cough, Cold, or Fever: No Significant Weight Loss In The Last 4 Months: No Possible the Patient Might be : No
[2018-05-02] MEDS: buPROPion XL 150 MG TAB PO SCH (08:17)
[2018-05-02] MEDS: LITHIUM CARBONATE ER 450 MG TAB PO SCH ×2 (08:18→21:49)
[2018-05-02] MEDS: LORazepam 1 MG TAB PO SCH ×3 (08:18→21:50)
[2018-05-02] MEDS: MEMANTINE HCL 5 MG TAB PO SCH ×2 (08:18→21:49)
[2018-05-02] MEDS: LEVOTHYROXINE 50 MCG TAB PO SCH (10:06)
[2018-05-03] MEDS: LITHIUM CARBONATE ER 450 MG TAB PO SCH ×2 (08:18→20:05)
[2018-05-03] MEDS: MEMANTINE HCL 5 MG TAB PO SCH ×2 (08:18→20:05)
[2018-05-03] MEDS: buPROPion XL 150 MG TAB PO SCH (08:19)
[2018-05-03] MEDS: LORazepam 1 MG TAB PO SCH ×3 (08:19→20:08)
[2018-05-03] MEDS: LEVOTHYROXINE 50 MCG TAB PO SCH (12:34)
--- NOTE | 2018-05-03 14:38 | ASMTCMCOM ---
CM Note CM Note Notes: Pt. reports feeling "fine". Pt. stated he slept "okay" and is eating well. Pt. stated he had ECT on Saturday and it "was fine". Pt. stated "think I'm doing better". Pt. was unsure if he will continue getting ECT or is "potentially done". Pt. stated his ideal discharge plan is he "want to be with my family". Pt. stated his family may visit today. Pt. denied SI, HI, AVH and paranoia. Pt. presents as alert, bit anxious, preoccupied mentally, good eye contact and a soft voice. Staff report pt. sleeping 7 hours and being medication compliant. Date Signed: 05/03/2018 02:37 PM Electronically Signed By:Clair Wyman
--- NOTE | 2018-05-03 16:40 | SOAPPROG ---
SOAP Progress Note Assessment/Plan: Assessment: Per Dr. Whelan's recent notes: 05/01/18 21:07 Mood/catatonia: Much improved overall. CCM. Subjective: Pt seen, discussed with staff. Participated in family meeting with mother present. This went well. He voiced desire to leave hospital and see kids. He continued to improve in re: spontaneity of thoughts and actions. All agreed that he is much better. Affect is blunted, but he smiled spontaneously, HUGE, when laughing about kids during meeting. Mood is "pretty good, not depressed." TP more spontaneous, fluent. Better modulated. TC reveals no mention of paranoid delusions. PLAN: 05/03/18 16:36 1. Patient presents similar to last weekend. He is walking dailey with blunted affect. He does show more range of emotion only around his children when they visit on unit. Otherwise he is consistently blunted. 2. Patient admits ECT is helping. States he is feeling "better." 3. Continues to perform ADL's appropriately. 4. Plan to continue ECT this week. Subjective: Patient is present in milieu, but prefers to remain standing near TV or pacing halls. He does not engage MD or staff in conversation. When MD says "hi" and asks patient how he is doing, patient looks at ground and walks around MD mumbling "fine." MD requests to sit down and talk to patient, but he says, "no thanks." Objective: Vital Signs Temp Pulse Resp BP Pulse Ox 36.4 C 79 14 123/55 H 98 05/03/18 06:00 05/03/18 06:00 05/03/18 06:00 05/03/18 06:00 05/03/18 06:00 05/02/18 05/03/18 05/04/18 05:59 05:59 05:59 Intake Total 700 Balance 700 MSE: Affect: Blunt Mood: "Fine" TP: Paucity of speech TC: Denies any SI/ HI Insight/Judgment: Improving - Time Spent With Patient Time Spent With Patient: 15" - Pending Discharge Pending Discharge Within 24 Hours: No Pending Discharge Within 48 Hours: No ICD10 Worksheet Patient Problems: Problems Problem Status Onset Bipolar disorder Acute Psychotic disorder Acute Schizoaffective disorder Acute
[2018-05-04] MEDS: buPROPion XL 150 MG TAB PO SCH (08:28)
[2018-05-04] MEDS: LORazepam 1 MG TAB PO SCH ×3 (08:35→15:50)
[2018-05-04] MEDS: LITHIUM CARBONATE ER 450 MG TAB PO SCH ×2 (08:35→15:51)
[2018-05-04] MEDS: MEMANTINE HCL 5 MG TAB PO SCH ×2 (08:36→19:10)
[2018-05-04] MEDS: LEVOTHYROXINE 50 MCG TAB PO SCH (08:45)
--- NOTE | 2018-05-04 14:59 | ASMTCMCOM ---
CM Note CM Note Notes: CC met briefly with pt. Pt. reports he sees Dr. Levy outpatient. Pt. stated he is willing to see Dr. Levy again. Pt. stated his family will be visiting today. Pt. denied having feelings of paranoia. Pt. stated he would come to staff if he did have feelings of paranoia or anxiety. Staff report pt. sleeping 8 hours, being medication compliant, attending groups, being out of his room more, and appearing guarded. Date Signed: 05/04/2018 02:59 PM Electronically Signed By:Clair Wyman
--- NOTE | 2018-05-04 15:43 | SOAPPROG ---
SOAP Progress Note Assessment/Plan: Assessment: Per Dr. Whelan's recent notes: 05/01/18 21:07 Mood/catatonia: Much improved overall. CCM. Subjective: Pt seen, discussed with staff. Participated in family meeting with mother present. This went well. He voiced desire to leave hospital and see kids. He continued to improve in re: spontaneity of thoughts and actions. All agreed that he is much better. Affect is blunted, but he smiled spontaneously, HUGE, when laughing about kids during meeting. Mood is "pretty good, not depressed." TP more spontaneous, fluent. Better modulated. TC reveals no mention of paranoid delusions. PLAN: 05/03/18 16:36 1. Patient presents similar to last weekend. He is walking dailey with blunted affect. He does show more range of emotion only around his children when they visit on unit. Otherwise he is consistently blunted. 2. Patient admits ECT is helping. States he is feeling "better." 3. Continues to perform ADL's appropriately. 4. Plan to continue ECT this week. PLAN: 05/04/18 15:18 1. Patient was tearful this AM, but would not say why. MD imagines he might have missed seeing his children this weekend. He says his son is sick. 2. Patient has some odd mannerisms. When he paces the dailey, MD notices he touches the door handles on certain rooms. Staff note this pattern has been consistent throughout his admission. He denies AH/VH and paranoid delusions when directly asked. 3. Continue ECT this week. Subjective: Patient is pacing halls. He stops at certain rooms to touch door handle. When asked directly if he feels scared or worried about something bad happening, patient denies it. He also denies AH/VH, though he seems internally preoccupied much of the time. Objective: Vital Signs Temp Pulse Resp BP Pulse Ox 36.7 C 76 16 104/58 L 98 05/04/18 06:00 05/04/18 06:00 05/04/18 06:00 05/04/18 06:00 05/04/18 06:00 05/03/18 05/04/18 05/05/18 05:59 05:59 05:59 Intake Total 700 Balance 700 MSE: Affect: Blunted Mood: "OK" TP: Minimal responses, paucity of speech TC: Denies any SI/HI, denies paranoia, but seems guarded Insight/Judgment: Poor - Time Spent With Patient Time Spent With Patient: 15" - Pending Discharge Pending Discharge Within 24 Hours: No Pending Discharge Within 48 Hours: No ICD10 Worksheet Patient Problems: Problems Problem Status Onset Bipolar disorder Acute Psychotic disorder Acute Schizoaffective disorder Acute
[2018-05-05] MEDS ORDERED: LIDOCAINE 2% 5 ML SDV ONE (05:33)
[2018-05-05] MEDS: MEMANTINE HCL 5 MG TAB PO SCH ×2 (09:17→21:10)
[2018-05-05] MEDS: buPROPion XL 150 MG TAB PO SCH (09:17)
[2018-05-05] MEDS: LITHIUM CARBONATE ER 450 MG TAB PO SCH ×2 (09:18→21:09)
[2018-05-05] MEDS: LORazepam 1 MG TAB PO SCH ×3 (09:18→21:10)
[2018-05-05] MEDS ORDERED: ONDANSETRON DISINTEGRATING 4 MG TAB PO PRN ×2 (10:17→14:34)
[2018-05-05] MEDS ORDERED: NS 1,000 ML IV PRN (10:17)
[2018-05-05] MEDS ORDERED: THEOPHYLLINE ORAL SOLUTION 80 MG/15 ML UDCUP PO ONE (10:17)
[2018-05-05] MEDS ORDERED: CITRIC ACID/SODIUM CITRATE 30 ML UDCUP PO PRN (10:17)
[2018-05-05] MEDS: LEVOTHYROXINE 50 MCG TAB PO SCH (10:37)
[2018-05-05] MEDS ORDERED: KETOROLAC 30 MG/1 ML SDV ONE (10:45)
[2018-05-05] MEDS ORDERED: GLYCOPYRROLATE 0.2 MG/1 ML VIAL ONE (10:45)
[2018-05-05] MEDS ORDERED: fentaNYL 100 MCG/2 ML INJ ONE (10:45)
[2018-05-05] MEDS ORDERED: ONDANSETRON 4 MG/2 ML VIAL ONE (10:45)
[2018-05-05] MEDS ORDERED: MIDAZOLAM 2 MG/2 ML VIAL ONE (10:45)
[2018-05-05] MEDS ORDERED: ETOMIDATE 20 MG/10 ML VIAL ONE (10:46)
[2018-05-05] MEDS ORDERED: LORazepam 2 MG/ML INJ ONE (10:46)
[2018-05-05] MEDS ORDERED: ROCURONIUM 50 MG/5 ML VIAL ONE (10:46)
[2018-05-05] MEDS ORDERED: SUCCINYLCHOLINE CHLORIDE 200 MG/10 ML VIAL ONE (10:47)
[2018-05-05] MEDS ORDERED: CITRIC ACID/SODIUM CITRATE 30 ML UDCUP ONE (13:03)
[2018-05-05] MEDS ORDERED: ONDANSETRON DISINTEGRATING 4 MG TAB ONE (13:03)
--- NOTE | 2018-05-05 13:49 | PDECTPN ---
ECT Progress Note Patient Problems: Problems Problem Status Onset Code Bipolar disorder Acute F31.9 Psychotic disorder Acute F29 Schizoaffective disorder Acute F25.9 Date: 05/05/18 Treatment#: 13 ECT provider: Cholo Sims Anesthesia: Jesse [place] Stimulus dose (%): 100 Pulse width: 0.5 ECT EMG (sec): 23 ECT EEG (sec): 52 ECT treatment type: bilateral QIDS-SR Total Score: 6 QIDS-SR Question #12 Score: 0 MMSE Total Score (Max = 21): 21 Next ECT date: 05/07/18 Next ECT time: 11:00 Home medications: Medication Instructions Recorded Levothyroxine [Synthroid 50 mcg 50 mcg PO DAILY06 #30 tab 12/06/17 (*)] LORazepam [Ativan (*)] 1 mg PO BID@01/01/18 [place] Carbonate ER [Eskalith Cr 450 mg PO BID 01/01/18 450 mg (*)] buPROPion XL [Wellbutrin Xl] 300 mg PO DAILY 01/20/18 Memantine HCl [Namenda 5 mg (*)] 5 mg PO BID 03/19/18 Current treatment plan: acute phase Treatment plan frequency: 3 times per week ECT narrative: reviewed Dr Belle note. Pt impoverished in speech, but can answer with short , fluent phrases in monotone. PMR, blunted affect but periodically smiles. Disheveled appearing. Intermittant, cursory eye contact. Cont acute ECT inpt throught this week due to on going, albeit improving signs of catatonia.
--- NOTE | 2018-05-05 13:52 | PDANEPAE ---
ECT Pre Anesthetic Evaluation Allergies/Adverse Reactions: No Known Allergies Allergy (Unverified 10/31/17 15:09) Patient ID confirmed: Yes H&P reviewed: Yes Pre-anesthetic history reviewed: Yes Heart: regular rate and rhythym Lungs: no respiratory distress Mallampati Score: Class 1 ASA Status: I Home Medications: Medication Instructions Recorded Levothyroxine [Synthroid 50 mcg 50 mcg PO DAILY06 #30 tab 12/06/17 (*)] LORazepam [Ativan (*)] 1 mg PO BID@01/01/18 [place] Carbonate ER [Eskalith Cr 450 mg PO BID 01/01/18 450 mg (*)] buPROPion XL [Wellbutrin Xl] 300 mg PO DAILY 01/20/18 Memantine HCl [Namenda 5 mg (*)] 5 mg PO BID 03/19/18 Medication review: completed Patient interviewed: Yes Patient examined: Yes Anesthetic plan discussed with patient: Yes Anesthetic risks discussed with patient: Yes ECT Pre-Anesthetic History - Height & Weight Height: 190.5 cm Weight: 87.09 kg BMI: 24.00 - Anesthesia History Hx Anesthesia Complications (with details): none Family Hx Anesthesia Complications: none - Medications In the Past 6 Months the Patient Has Taken: Thyroid Medication, Tranquilizers - Tobacco/Alcohol/Drug Use Smoking Status: Never smoked Hx Drug/Substance Abuse: No Alcohol Use: No - Prior Surgeries/Hospitalizations Prior Surgeries: none Prior Medical Hospitalizations: none - Pulmonary History ECT Hx Asthma: No Hx Abnormal Chest X-Ray: No Hx Oxygen in Use at Home: No - Cardiovascular History Hx Hypertension: No Currently Uses Hypertension Medication: No Hx Arrhythmias: No Hx Palpitations: No Hx Chest Pain: No Hx Coronary Artery / Peripheral Vascular Disease: No Hx Blood Clot: No - Neurologic History Hx Cerebrovascular Accident: No Hx CT Scan Or MRI Of The Brain: No Hx Epilepsy, Convulsions, Seizures, Or Blackouts: No Hx Frequent Or Severe Headaches: No Hx Numbness: No Hx Neurologic Disorder: No - Dental History Current Dental Issues: None - Endocrine History Hx Diabetes: No Hx Thyroid Problems: Yes Endocrine History Comment: takes Levothyroxine - Renal/Urologic History Hx Renal Disorders: No Hx Urinary Tract Problems: No - Liver History Hx Hepatic Disorders: No - Cancer History Hx Cancer: No - Hematology History Hx Unexplained Bleeding Of Any Type: No Hx Ease Of Bruising: No Hx Anemia: No - Gastrointestinal History Hx Gastroesophogeal Reflux Disease: No Hx Ulcers: No Hx Hiatal Hernia: No Hx Difficulty Swallowing: No - Musculoskeletal Hisory Hx Chronic Pain: No Hx Arthritis: No - Opthalmic History Hx Glaucoma: No Visual Assistive Devices: None Hx Opthalmic Disorders: No - Other Health History Physical Disabililty: No Recent Cough, Cold, or Fever: No Significant Weight Loss In The Last 4 Months: No Possible the Patient Might be : No
[2018-05-05] MEDS ORDERED: PROMETHAZINE HCL 25 MG TAB PO PRN (14:34)
[2018-05-05] MEDS ORDERED: HYDROCODONE/APAP 5/325 TAB PO PRN (14:34)
[2018-05-05] MEDS ORDERED: NALOXONE HCL 0.4 MG/ML INJ IVP PRN (14:34)
[2018-05-06] MEDS: MEMANTINE HCL 5 MG TAB PO SCH ×2 (08:00→21:17)
[2018-05-06] MEDS: LORazepam 1 MG TAB PO SCH ×3 (08:01→21:17)
[2018-05-06] MEDS: buPROPion XL 150 MG TAB PO SCH (08:01)
[2018-05-06] MEDS: LITHIUM CARBONATE ER 450 MG TAB PO SCH (08:01)
--- NOTE | 2018-05-06 11:00 | SOAPPROG ---
FREDO Progress Note Assessment/Plan: Assessment: Catatonia Associated with Bipolar I disorder Plan: Reviewed pts progress in Tx planning meeting. Pt apparently refused initially to come to ECT yesterday, requiring multiple RN interventions to coax him off his bed. He revealed his negativism around Tx, c/w catatonia. RN pointed out that hold ativan may be related to slipping back the mornings of ECT, but NOT holding benzo that AM would impact that benefit of the more helpful modality, ECT. THis is one reason he should not discharge yet. Mother would NOT be able to get him to come back for ECT from [facility]. I will hold HS and AM dose of [place] prior to any Txs. If he reveals any confusion that seems excessive or enduring post Tx, will hold LI altogether until acute ECT is complete. Furthermore, one might consider tapering off Wellbutrin once euthymic and out of catatonic state, if not sooner, leaving him on Li, Ativan and mECT as the maintstays of his Tx/Rx 05/06/18 10:53 Objective: Vital Signs Temp Pulse Resp BP Pulse Ox 36.7 C 94 16 117/73 100 05/06/18 06:00 05/06/18 06:00 05/06/18 06:00 05/06/18 06:00 05/06/18 06:00 05/05/18 05/06/18 05/07/18 05:59 05:59 05:59 Intake Total 750 Balance 750 ICD10 Worksheet Patient Problems: Problems Problem Status Onset Bipolar disorder Acute Psychotic disorder Acute Schizoaffective disorder Acute
[2018-05-06] MEDS: LEVOTHYROXINE 50 MCG TAB PO SCH (11:35)
[2018-05-07] MEDS ORDERED: LIDOCAINE 2% 5 ML SDV ONE (06:10)
[2018-05-07] MEDS: LEVOTHYROXINE 50 MCG TAB PO SCH (08:13)
[2018-05-07] MEDS: buPROPion XL 150 MG TAB PO SCH (08:13)
[2018-05-07] MEDS: MEMANTINE HCL 5 MG TAB PO SCH ×2 (08:13→20:48)
[2018-05-07] MEDS ORDERED: ONDANSETRON DISINTEGRATING 4 MG TAB PO PRN (09:08)
[2018-05-07] MEDS ORDERED: NS 1,000 ML IV PRN (09:08)
[2018-05-07] MEDS ORDERED: THEOPHYLLINE ORAL SOLUTION 80 MG/15 ML UDCUP PO ONE (09:08)
[2018-05-07] MEDS ORDERED: CITRIC ACID/SODIUM CITRATE 30 ML UDCUP PO PRN (09:08)
[2018-05-07] MEDS ORDERED: CITRIC ACID/SODIUM CITRATE 30 ML UDCUP ONE (11:18)
[2018-05-07] MEDS ORDERED: ONDANSETRON DISINTEGRATING 4 MG TAB ONE (11:18)
[2018-05-07] MEDS ORDERED: fentaNYL 100 MCG/2 ML INJ ONE (11:29)
[2018-05-07] MEDS ORDERED: MIDAZOLAM 2 MG/2 ML VIAL ONE (11:29)
[2018-05-07] MEDS ORDERED: LORazepam 2 MG/ML INJ ONE (11:30)
[2018-05-07] MEDS ORDERED: ONDANSETRON 4 MG/2 ML VIAL ONE (11:30)
[2018-05-07] MEDS ORDERED: KETOROLAC 30 MG/1 ML SDV ONE (11:30)
[2018-05-07] MEDS ORDERED: GLYCOPYRROLATE 0.2 MG/1 ML VIAL ONE (11:30)
[2018-05-07] MEDS ORDERED: ETOMIDATE 20 MG/10 ML VIAL ONE (11:30)
[2018-05-07] MEDS ORDERED: ROCURONIUM 50 MG/5 ML VIAL ONE (11:31)
[2018-05-07] MEDS ORDERED: PROMETHAZINE HCL 25 MG TAB PO PRN (11:35)
[2018-05-07] MEDS ORDERED: HYDROCODONE/APAP 5/325 TAB PO PRN (11:35)
[2018-05-07] MEDS ORDERED: NALOXONE HCL 0.4 MG/ML INJ IVP PRN (11:35)
[2018-05-07] MEDS ORDERED: SUCCINYLCHOLINE CHLORIDE 200 MG/10 ML VIAL ONE (11:46)
--- NOTE | 2018-05-07 11:51 | PDECTPN ---
ECT Progress Note Patient Problems: Problems Problem Status Onset Code Bipolar disorder Acute F31.9 Psychotic disorder Acute F29 Schizoaffective disorder Acute F25.9 Date: 05/07/18 Treatment#: 14 ECT provider: Cholo Sims Anesthesia: Jesse [place] Stimulus dose (%): 100 Pulse width: 0.5 ECT EMG (sec): 15 ECT EEG (sec): 41 ECT treatment type: bilateral QIDS-SR Total Score: 3 QIDS-SR Question #12 Score: 0 MMSE Total Score (Max = 21): 21 Next ECT date: 05/09/18 Next ECT time: 08:00 Home medications: Medication Instructions Recorded Levothyroxine [Synthroid 50 mcg 50 mcg PO DAILY06 #30 tab 12/06/17 (*)] LORazepam [Ativan (*)] 1 mg PO BID@01/01/18 [place] Carbonate ER [Eskalith Cr 450 mg PO BID 01/01/18 450 mg (*)] buPROPion XL [Wellbutrin Xl] 300 mg PO DAILY 01/20/18 Memantine HCl [Namenda 5 mg (*)] 5 mg PO BID 03/19/18 Current treatment plan: acute phase Treatment plan frequency: 3 times per week ECT narrative: reviewed Dr Belle note. Pt impoverished in speech, but can answer with short , fluent phrases in monotone. PMR, blunted affect but periodically smiles. Disheveled appearing. Intermittant, cursory eye contact. Cont acute ECT inpt throught this week due to on going, albeit improving signs of catatonia. SOAP note from 05/06: Reviewed pts progress in Tx planning meeting. Pt apparently refused initially to come to ECT yesterday, requiring multiple RN interventions to coax him off his bed. He revealed his negativism around Tx, c/w catatonia. RN pointed out that hold ativan may be related to slipping back the mornings of ECT, but NOT holding benzo that AM would impact that benefit of the more helpful modality, ECT. THis is one reason he should not discharge yet. Mother would NOT be able to get him to come back for ECT [facility]. I will hold HS and AM dose of [place] prior to any Txs. If he reveals any confusion that seems excessive or enduring post Tx, will hold LI altogether until acute ECT is complete. Furthermore, one might consider tapering off Wellbutrin once euthymic and out of catatonic state, if not sooner, leaving him on Li, Ativan and mECT as the maintstays of his Tx/Rx 05/07 Pt quiet and reserved, with monotone, underproductive speech. But, makes eye contact and is agreeable. It is possible that some rebound symptoms may be evident the AMs of ECT due to holding lorazepam, which could reveal itself in his negativism around getting the treatment. Hence, he should cont to remain inpatient a bit longer, as mother would not be able to easily coax him to come back if at home
--- NOTE | 2018-05-07 12:17 | POSTANESTH ---
Post Anesthetic Evaluation Cardiovascular Status: Normal, Stable Respiratory Status: Normal, Stable Level of Consciousness/Mental Status: Mildly Sleepy, Arousable Pain Control: Adequate, Prn Tx Ordered Nausea/Vomiting Control: Adequate, Prn Tx Ordered Complications Possibly Related to Anesthesia: None Noted
[2018-05-07] MEDS: LORazepam 1 MG TAB PO SCH ×2 (15:51→20:48)
[2018-05-07] MEDS: LITHIUM CARBONATE ER 450 MG TAB PO SCH (18:21)
[2018-05-08] MEDS: LORazepam 1 MG TAB PO SCH ×2 (09:18→15:57)
[2018-05-08] MEDS: buPROPion XL 150 MG TAB PO SCH (09:18)
[2018-05-08] MEDS: LITHIUM CARBONATE ER 450 MG TAB PO SCH ×2 (09:18→15:14)
[2018-05-08] MEDS: MEMANTINE HCL 5 MG TAB PO SCH ×2 (09:18→19:49)
[2018-05-08] MEDS: LEVOTHYROXINE 50 MCG TAB PO SCH (09:18)
--- NOTE | 2018-05-08 15:40 | SOAPPROG ---
SOAP Progress Note Assessment/Plan: Assessment: Catatonia Associated with Bipolar I disorder Plan: Reviewed pts progress in Tx planning meeting. Pt apparently refused initially to come to ECT yesterday, requiring multiple RN interventions to coax him off his bed. He revealed his negativism around Tx, c/w catatonia. RN pointed out that hold ativan may be related to slipping back the mornings of ECT, but NOT holding benzo that AM would impact that benefit of the more helpful modality, ECT. THis is one reason he should not discharge yet. Mother would NOT be able to get him to come back for ECT [facility]. I will hold HS and AM dose of [place] prior to any Txs. If he reveals any confusion that seems excessive or enduring post Tx, will hold LI altogether until acute ECT is complete. Furthermore, one might consider tapering off Wellbutrin once euthymic and out of catatonic state, if not sooner, leaving him on Li, Ativan and mECT as the maintstays of his Tx/Rx 05/06/18 10:53 05/08/18 15:34 Pt interviewed in hallway sitting at desk. TSH and LI levels drawn, but a bit late due to IV access difficultiy. Hence, will assume Li level will be lower than its actual value. He is clearly more engaged, verbal albeit still monontone, speaking in full, organized sentences. Intermittant eye contact. Better, albeit still impaired, relatedness. SOme PMR, but far from stuperous or immobile. He is clearly responding to ECT, but not so well as to ensure that he will not resist coming in to complete acute course if discharged, given his history of negativism and refusal when home. I spoke at length with him about the value of mECT and spoke to Alhaji about communicating to mother, Juanis, and ex , Sera, about corralling him as a "unified front" to follow up once discharged. I would err on side of completing as many treatments inpatient as possible to bring him as close to remission as possible, as he so far, is allowing ECT to occur while he is here without resistance. Objective: Vital Signs Temp Pulse Resp BP Pulse Ox 36.6 C 80 16 109/68 98 05/08/18 06:00 05/08/18 06:00 05/08/18 06:00 05/08/18 06:00 05/08/18 06:00 05/07/18 05/08/18 05/09/18 05:59 05:59 05:59 Intake Total 500 Balance 500 ICD10 Worksheet Patient Problems: Problems Problem Status Onset Bipolar disorder Acute Psychotic disorder Acute Schizoaffective disorder Acute
[2018-05-09] MEDS ORDERED: THEOPHYLLINE ORAL SOLUTION 80 MG/15 ML UDCUP PO ONE ×2 (06:09→06:30)
[2018-05-09] MEDS ORDERED: ETOMIDATE 20 MG/10 ML VIAL ONE (07:41)
[2018-05-09] MEDS ORDERED: KETOROLAC 30 MG/1 ML SDV ONE (07:41)
[2018-05-09] MEDS ORDERED: ONDANSETRON 4 MG/2 ML VIAL ONE (07:41)
[2018-05-09] MEDS ORDERED: MIDAZOLAM 2 MG/2 ML VIAL ONE (07:41)
[2018-05-09] MEDS ORDERED: GLYCOPYRROLATE 0.2 MG/1 ML VIAL ONE (07:41)
[2018-05-09] MEDS ORDERED: fentaNYL 100 MCG/2 ML INJ ONE (07:41)
[2018-05-09] MEDS ORDERED: ROCURONIUM 50 MG/5 ML VIAL ONE (07:42)
[2018-05-09] MEDS ORDERED: SUCCINYLCHOLINE CHLORIDE 200 MG/10 ML VIAL ONE (07:42)
[2018-05-09] MEDS ORDERED: LORazepam 2 MG/ML INJ ONE (07:42)
[2018-05-09] MEDS ORDERED: ONDANSETRON DISINTEGRATING 4 MG TAB ONE (07:45)
[2018-05-09] MEDS ORDERED: CITRIC ACID/SODIUM CITRATE 30 ML UDCUP ONE (07:46)
[2018-05-09] MEDS ORDERED: CITRIC ACID/SODIUM CITRATE 30 ML UDCUP PO PRN (07:57)
[2018-05-09] MEDS ORDERED: NS 1,000 ML IV PRN (07:57)
[2018-05-09] MEDS ORDERED: ONDANSETRON DISINTEGRATING 4 MG TAB PO PRN (07:57)
--- NOTE | 2018-05-09 08:20 | SOAPPROG ---
SOAP Progress Note Assessment/Plan: Assessment: Catatonia Associated with Bipolar I disorder Plan: Reviewed pts progress in Tx planning meeting. Pt apparently refused initially to come to ECT yesterday, requiring multiple RN interventions to coax him off his bed. He revealed his negativism around Tx, c/w catatonia. RN pointed out that hold ativan may be related to slipping back the mornings of ECT, but NOT holding benzo that AM would impact that benefit of the more helpful modality, ECT. THis is one reason he should not discharge yet. Mother would NOT be able to get him to come back for ECT [facility]. I will hold HS and AM dose of [place] prior to any Txs. If he reveals any confusion that seems excessive or enduring post Tx, will hold LI altogether until acute ECT is complete. Furthermore, one might consider tapering off Wellbutrin once euthymic and out of catatonic state, if not sooner, leaving him on Li, Ativan and mECT as the maintstays of his Tx/Rx 05/06/18 10:53 05/08/18 15:34 Pt interviewed in hallway sitting at desk. TSH and LI levels drawn, but a bit late due to IV access difficultiy. Hence, will assume Li level will be lower than its actual value. He is clearly more engaged, verbal albeit still monontone, speaking in full, organized sentences. Intermittant eye contact. Better, albeit still impaired, relatedness. SOme PMR, but far from stuperous or immobile. He is clearly responding to ECT, but not so well as to ensure that he will not resist coming in to complete acute course if discharged, given his history of negativism and refusal when home. I spoke at length with him about the value of mECT and spoke to Alhaji about communicating to mother, Juanis, and ex , Sera, about corralling him as a "unified front" to follow up once discharged. I would err on side of completing as many treatments inpatient as possible to bring him as close to remission as possible, as he so far, is allowing ECT to occur while he is here without resistance. 05/09/18 08:11 SOAP note from 05/08 states: Pt interviewed in hallway sitting at desk. TSH and LI levels drawn, but a bit late due to IV access difficultiy. Hence, will assume Li level will be lower than its actual value. He is clearly more engaged, verbal albeit still monontone, speaking in full, organized sentences. Intermittant eye contact. Better, albeit still impaired, relatedness. SOme PMR, but far from stuperous or immobile. He is clearly responding to ECT, but not so well as to ensure that he will not resist coming in to complete acute course if discharged, given his history of negativism and refusal when home. I spoke at length with him about the value of mECT and spoke to Alhaji about communicating to mother, Juanis, and ex , Sera, about corralling him as a "unified front" to follow up once discharged. I would err on side of completing as many treatments inpatient as possible to bring him as close to remission as possible, as he so far, is allowing ECT to occur while he is here without resistance Today, pt appears tense, impoverished in speech and with PMR. affect blunted. .Perhaps a function of holding his lorazepam last night. Still, overall, clearly improved and improving. [place] level 0.4 but the actual level is probably higher for two reasons: 1) it was drawn probably 16 hours after last dose and 2) he had been having the hs doses held the evenings prior to ECT. At most, I might hypothesize that the valid level would have been 0.5-0.6. This may help determine what dose to go to AFTER acute ECT is completed. Objective: Vital Signs Temp Pulse Resp BP Pulse Ox 36.4 C 93 20 143/85 H 99 05/09/18 08:02 05/09/18 08:02 05/09/18 08:02 05/09/18 08:02 05/09/18 08:02 05/08/18 05/09/18 05/10/18 05:59 05:59 05:59 Intake Total 500 Balance 500 Laboratory Tests 05/08/18 12:15 TSH 1.060 [place] 0.4 L ICD10 Worksheet Patient Problems: Problems Problem Status Onset Bipolar disorder Acute Psychotic disorder Acute Schizoaffective disorder Acute
--- NOTE | 2018-05-09 08:24 | PDANEPAE ---
ECT Pre Anesthetic Evaluation Allergies/Adverse Reactions: No Known Allergies Allergy (Unverified 10/31/17 15:09) Patient ID confirmed: Yes H&P reviewed: Yes Pre-anesthetic history reviewed: Yes Heart: regular rate and rhythym Lungs: no respiratory distress Mallampati Score: Class 1 ASA Status: I Home Medications: Medication Instructions Recorded Levothyroxine [Synthroid 50 mcg 50 mcg PO DAILY06 #30 tab 12/06/17 (*)] LORazepam [Ativan (*)] 1 mg PO BID@01/01/18 [place] Carbonate ER [Eskalith Cr 450 mg PO BID 01/01/18 450 mg (*)] buPROPion XL [Wellbutrin Xl] 300 mg PO DAILY 01/20/18 Memantine HCl [Namenda 5 mg (*)] 5 mg PO BID 03/19/18 Medication review: completed Patient interviewed: Yes Patient examined: Yes Anesthetic plan discussed with patient: Yes ECT Pre-Anesthetic History - Height & Weight Height: 190.5 cm Weight: 87.09 kg BMI: 24.00 - Anesthesia History Hx Anesthesia Complications (with details): none Family Hx Anesthesia Complications: none - Medications In the Past 6 Months the Patient Has Taken: Thyroid Medication, Tranquilizers - Tobacco/Alcohol/Drug Use Smoking Status: Never smoked Hx Drug/Substance Abuse: No Alcohol Use: No - Prior Surgeries/Hospitalizations Prior Surgeries: none Prior Medical Hospitalizations: none - Pulmonary History ECT Hx Asthma: No Hx Abnormal Chest X-Ray: No Hx Oxygen in Use at Home: No - Cardiovascular History Hx Hypertension: No Currently Uses Hypertension Medication: No Hx Arrhythmias: No Hx Palpitations: No Hx Chest Pain: No Hx Coronary Artery / Peripheral Vascular Disease: No Hx Blood Clot: No - Neurologic History Hx Cerebrovascular Accident: No Hx CT Scan Or MRI Of The Brain: No Hx Epilepsy, Convulsions, Seizures, Or Blackouts: No Hx Frequent Or Severe Headaches: No Hx Numbness: No Hx Neurologic Disorder: No - Dental History Current Dental Issues: None - Endocrine History Hx Diabetes: No Hx Thyroid Problems: Yes Endocrine History Comment: takes Levothyroxine - Renal/Urologic History Hx Renal Disorders: No Hx Urinary Tract Problems: No - Liver History Hx Hepatic Disorders: No - Cancer History Hx Cancer: No - Hematology History Hx Unexplained Bleeding Of Any Type: No Hx Ease Of Bruising: No Hx Anemia: No - Gastrointestinal History Hx Gastroesophogeal Reflux Disease: No Hx Ulcers: No Hx Hiatal Hernia: No Hx Difficulty Swallowing: No - Musculoskeletal Hisory Hx Chronic Pain: No Hx Arthritis: No - Opthalmic History Hx Glaucoma: No Visual Assistive Devices: None Hx Opthalmic Disorders: No - Other Health History Physical Disabililty: No Recent Cough, Cold, or Fever: No Significant Weight Loss In The Last 4 Months: No Possible the Patient Might be : No
--- NOTE | 2018-05-09 08:25 | PDECTPN ---
ECT Progress Note Patient Problems: Problems Problem Status Onset Code Bipolar disorder Acute F31.9 Psychotic disorder Acute F29 Schizoaffective disorder Acute F25.9 Date: 05/09/18 ECT provider: Cholo Sims Stimulus dose (%): 100 Pulse width: 0.5 ECT EMG (sec): 13 ECT EEG (sec): 19 ECT treatment type: bilateral QIDS-SR Total Score: 20 QIDS-SR Question #12 Score: 0 MMSE Total Score (Max = 21): 20 Next ECT date: 05/12/18 Next ECT time: 08:30 Home medications: Medication Instructions Recorded Levothyroxine [Synthroid 50 mcg 50 mcg PO DAILY06 #30 tab 12/06/17 (*)] LORazepam [Ativan (*)] 1 mg PO BID@01/01/18 [place] Carbonate ER [Eskalith Cr 450 mg PO BID 01/01/18 450 mg (*)] buPROPion XL [Wellbutrin Xl] 300 mg PO DAILY 01/20/18 Memantine HCl [Namenda 5 mg (*)] 5 mg PO BID 03/19/18 Current treatment plan: acute phase Treatment plan frequency: 3 times per week ECT narrative: reviewed Dr Belle note. Pt impoverished in speech, but can answer with short , fluent phrases in monotone. PMR, blunted affect but periodically smiles. Disheveled appearing. Intermittant, cursory eye contact. Cont acute ECT inpt throught this week due to on going, albeit improving signs of catatonia. SOAP note from 05/06: Reviewed pts progress in Tx planning meeting. Pt apparently refused initially to come to ECT yesterday, requiring multiple RN interventions to coax him off his bed. He revealed his negativism around Tx, c/w catatonia. RN pointed out that hold ativan may be related to slipping back the mornings of ECT, but NOT holding benzo that AM would impact that benefit of the more helpful modality, ECT. THis is one reason he should not discharge yet. Mother would NOT be able to get him to come back for ECT [facility]. I will hold HS and AM dose of [place] prior to any Txs. If he reveals any confusion that seems excessive or enduring post Tx, will hold LI altogether until acute ECT is complete. Furthermore, one might consider tapering off Wellbutrin once euthymic and out of catatonic state, if not sooner, leaving him on Li, Ativan and mECT as the maintstays of his Tx/Rx 05/07 Pt quiet and reserved, with monotone, underproductive speech. But, makes eye contact and is agreeable. It is possible that some rebound symptoms may be evident the AMs of ECT due to holding lorazepam, which could reveal itself in his negativism around getting the treatment. Hence, he should cont to remain inpatient a bit longer, as mother would not be able to easily coax him to come back if at home 05/09/18 SOAP note from 05/08 states: Pt interviewed in hallway sitting at desk. TSH and LI levels drawn, but a bit late due to IV access difficultiy. Hence, will assume Li level will be lower than its actual value. He is clearly more engaged, verbal albeit still monontone, speaking in full, organized sentences. Intermittant eye contact. Better, albeit still impaired, relatedness. SOme PMR, but far from stuperous or immobile. He is clearly responding to ECT, but not so well as to ensure that he will not resist coming in to complete acute course if discharged, given his history of negativism and refusal when home. I spoke at length with him about the value of mECT and spoke to Alhaji about communicating to mother, Juanis, and ex , Sera, about corralling him as a "unified front" to follow up once discharged. I would err on side of completing as many treatments inpatient as possible to bring him as close to remission as possible, as he so far, is allowing ECT to occur while he is here without resistance Today, pt appears tense, impoverished in speech and with PMR. affect blunted. .Perhaps a function of holding his lorazepam last night. Still, overall, clearly improved and improving. [place] level 0.4 but the actual level is probably higher for two reasons: 1) it was drawn probably 16 hours after last dose and 2) he had been having the hs doses held the evenings prior to ECT. At most, I might hypothesize that the valid level would have been 0.5-0.6. This may help determine what dose to go to AFTER acute ECT is completed. Short seizure today. WIll increase theophylline to 320. TSH was nl at 1.04
[2018-05-09] MEDS ORDERED: HYDROCODONE/APAP 5/325 TAB PO PRN (08:36)
[2018-05-09] MEDS ORDERED: NALOXONE HCL 0.4 MG/ML INJ IVP PRN (08:36)
[2018-05-09] MEDS: LITHIUM CARBONATE ER 450 MG TAB PO SCH ×2 (09:43→21:16)
[2018-05-09] MEDS: LORazepam 1 MG TAB PO SCH ×3 (09:43→21:16)
[2018-05-09] MEDS: LEVOTHYROXINE 50 MCG TAB PO SCH (09:43)
[2018-05-09] MEDS: buPROPion XL 150 MG TAB PO SCH (09:43)
[2018-05-09] MEDS: MEMANTINE HCL 5 MG TAB PO SCH ×2 (09:43→21:16)
[2018-05-10] MEDS: buPROPion XL 150 MG TAB PO SCH (08:20)
[2018-05-10] MEDS: LORazepam 1 MG TAB PO SCH ×3 (08:21→21:12)
[2018-05-10] MEDS: LITHIUM CARBONATE ER 450 MG TAB PO SCH ×2 (08:21→21:10)
[2018-05-10] MEDS: MEMANTINE HCL 5 MG TAB PO SCH ×2 (08:21→21:12)
[2018-05-10] MEDS: LEVOTHYROXINE 50 MCG TAB PO SCH (09:53)
--- NOTE | 2018-05-10 14:26 | ASMTCMCOM ---
CM Note CM Note Notes: Pt. reports feeling "okay". Pt. stated he "slept pretty well". Pt. reports eating well and attending "some" groups. Pt. reports no issues with his current medications. Pt. stated he had ECT on Saturday and believes he will have it again on Saturday. Pt. stated "not sure how many more [ECT treatments]". Pt. denied SI, HI, AVH and paranoia. Pt. stated he is following his behavioral plan and uses it as a helpful reminder. Pt. presents as alert, engaging, friendly, good eye contact, and joking with CC. It is unclear when pt. last showered and changed his clothes, as per his behavioral plan. Staff report pt. sleeping 9 hours and being medication compliant. Pt. has a family meeting scheduled for Saturday 05/12 at 11:30am. Date Signed: 05/10/2018 02:26 PM Electronically Signed By:Clair Wyman
--- NOTE | 2018-05-10 18:41 | SOAPPROG ---
FREDO Progress Note Assessment/Plan: Assessment: Per Dr. Sims's note: Plan: Reviewed pts progress in Tx planning meeting. Pt apparently refused initially to come to ECT yesterday, requiring multiple RN interventions to coax him off his bed. He revealed his negativism around Tx, c/w catatonia. RN pointed out that hold ativan may be related to slipping back the mornings of ECT, but NOT holding benzo that AM would impact that benefit of the more helpful modality, ECT. THis is one reason he should not discharge yet. Mother would NOT be able to get him to come back for ECT [facility]. I will hold HS and AM dose of [place] prior to any Txs. If he reveals any confusion that seems excessive or enduring post Tx, will hold LI altogether until acute ECT is complete. Furthermore, one might consider tapering off Wellbutrin once euthymic and out of catatonic state, if not sooner, leaving him on Li, Ativan and mECT as the maintstays of his Tx/Rx 05/06/18 10:53 05/08/18 15:34 Pt interviewed in hallway sitting at desk. TSH and LI levels drawn, but a bit late due to IV access difficultiy. Hence, will assume Li level will be lower than its actual value. He is clearly more engaged, verbal albeit still monontone, speaking in full, organized sentences. Intermittant eye contact. Better, albeit still impaired, relatedness. SOme PMR, but far from stuperous or immobile. He is clearly responding to ECT, but not so well as to ensure that he will not resist coming in to complete acute course if discharged, given his history of negativism and refusal when home. I spoke at length with him about the value of mECT and spoke to Alhaji about communicating to mother, Juanis, and ex , Sera, about corralling him as a "unified front" to follow up once discharged. I would err on side of completing as many treatments inpatient as possible to bring him as close to remission as possible, as he so far, is allowing ECT to occur while he is here without resistance. PLAN: 05/10/18 18:33 1. Patient continues to present as stable, but not significantly changed from last weekend. But remarkably better than at admission. 2. [place] level on 10/[address] Sims noted that blood was drawn late, however, this level is still subtherapeutic. 3. Family reports it's been very difficult to convince patient of need to maintain ECT tx after he leaves the hospital. CC has meeting scheduled on 05/12 with MOC and possibly ex-, Sera, to discuss how to increase likelihood of compliance with mECT. 4. CCM Subjective: Patient present similar to last weekend when MD saw him. He continues to pace halls, stands near TV watching at times without interacting with peers. Much of the time, patient remains in his room. He still has low energy and not much volitional activity, but he's not nearly as catatonic as he was at admission. He is eating and sleeping appropriately. Objective: Vital Signs Temp Pulse Resp BP Pulse Ox 36.6 C 80 16 120/75 96 05/10/18 06:00 05/10/18 06:00 05/10/18 06:00 05/10/18 06:00 05/10/18 06:00 05/09/18 05/10/18 05/11/18 05:59 05:59 05:59 Intake Total 625 Balance 625 MSE: Affect: Constricted Mood: "OK" TP: More fluent and spontaneous TC: Denies SI/HI, denies paranoia Insight/Judgment: Improving, however, there is significant risk of nonadherence with mECT, a/e/b his refusal/resistance to ECT even as recently as 05/09 - Time Spent With Patient Time Spent With Patient: 15" - Pending Discharge Pending Discharge Within 24 Hours: No Pending Discharge Within 48 Hours: No ICD10 Worksheet Patient Problems: Problems Problem Status Onset Bipolar disorder Acute Psychotic disorder Acute Schizoaffective disorder Acute
[2018-05-11] MEDS: buPROPion XL 150 MG TAB PO SCH (08:54)
[2018-05-11] MEDS: LEVOTHYROXINE 50 MCG TAB PO SCH (08:54)
[2018-05-11] MEDS: LORazepam 1 MG TAB PO SCH ×2 (08:54→16:10)
[2018-05-11] MEDS: MEMANTINE HCL 5 MG TAB PO SCH ×2 (08:55→21:54)
[2018-05-11] MEDS: LITHIUM CARBONATE ER 450 MG TAB PO SCH (08:55)
--- NOTE | 2018-05-11 15:18 | ASMTBHDC ---
Notes Note: Notes: CC spoke with Pt's WOShane, Sera, WOC stated she visited today with pt's children. WOC stated pt. "talked to kids more than previously". WOC stated at about 40 minutes into the visit, pt. changed and stated talking about "ripple", which WOC doesn't understand. WOC stated pt then started trying to communicate telepathically, WOC stating pt "stares and does stuff with his eyes" when trying to communicate telepathically. WOC stated pt then brought up "crypocurrency" and about their discussion recently. WOC stated she hasn't spoken to pt about this topic in the last year and was unsure what pt meant. WOC stated pt. shared he had been communicating telepathically with her. WOC shared how pt "thought Gabe [peer pt] was involved with something". WOC stated pt. made similar comments about his new roommate. WOC stated pt had been regularly calling at night until 4 days ago when he stopped calling. WOC stated pt told her he was "not calling because of ripple". WOC expressed concern about pt continuing to be delusional and paranoid. WOC stated "this is still a problem". Date Signed: 05/11/2018 03:18 PM Electronically Signed By:Clair Wyman
--- NOTE | 2018-05-11 17:30 | SOAPPROG ---
FREDO Progress Note Assessment/Plan: Assessment: Per Dr. Sims's note: Plan: Reviewed pts progress in Tx planning meeting. Pt apparently refused initially to come to ECT yesterday, requiring multiple RN interventions to coax him off his bed. He revealed his negativism around Tx, c/w catatonia. RN pointed out that hold ativan may be related to slipping back the mornings of ECT, but NOT holding benzo that AM would impact that benefit of the more helpful modality, ECT. THis is one reason he should not discharge yet. Mother would NOT be able to get him to come back for [facility]CT [facility]. I will hold HS and AM dose of [place] prior to any Txs. If he reveals any confusion that seems excessive or enduring post Tx, will hold LI altogether until acute ECT is complete. Furthermore, one might consider tapering off Wellbutrin once euthymic and out of catatonic state, if not sooner, leaving him on Li, Ativan and mECT as the maintstays of his Tx/Rx 05/06/18 10:53 05/08/18 15:34 Pt interviewed in hallway sitting at desk. TSH and LI levels drawn, but a bit late due to IV access difficultiy. Hence, will assume Li level will be lower than its actual value. He is clearly more engaged, verbal albeit still monontone, speaking in full, organized sentences. Intermittant eye contact. Better, albeit still impaired, relatedness. SOme PMR, but far from stuperous or immobile. He is clearly responding to ECT, but not so well as to ensure that he will not resist coming in to complete acute course if discharged, given his history of negativism and refusal when home. I spoke at length with him about the value of mECT and spoke to Alhaji about communicating to mother, Juanis, and ex , Sera, about corralling him as a "unified front" to follow up once discharged. I would err on side of completing as many treatments inpatient as possible to bring him as close to remission as possible, as he so far, is allowing ECT to occur while he is here without resistance. PLAN: 05/10/18 18:33 1. Patient continues to present as stable, but not significantly changed from last weekend. But remarkably better than at admission. 2. [place] level on 10/[address] Sims noted that blood was drawn late, however, this level is still subtherapeutic. 3. Family reports it's been very difficult to convince patient of need to maintain ECT tx after he leaves the hospital. CC has meeting scheduled on 05/12 with MOC and possibly ex-, Sera, to discuss how to increase likelihood of compliance with mECT. 4. CCM PLAN: 05/11/18 17:26 1. Patient's ex-, Sera, came for visit today and reported patient expressed paranoid thoughts to her. He told her he thought he could communicate with her telepathically. 2. Patient has been checking off activities on his behavioral support plan, but not actually doing them, including not showering or washing his clothes. 3. Patient is taking his meds as prescribed. 4. ECT on Saturday Subjective: Patient's ex-, Sera, visited him on unit today along with patient's MOC. Sera told CC that patient told her he thought he could communicate with her telepathically. Sera said he also reported some paranoid thoughts. MOC overheard as well. Staff encouraged patient to take shower this AM per his behavior support plan, but he refused. Patient has not showered or washed in clothes in several days. Objective: Vital Signs Temp Pulse Resp BP Pulse Ox 36.3 C 80 16 116/73 100 05/11/18 06:00 05/11/18 06:00 05/11/18 06:00 05/11/18 06:00 05/11/18 06:00 05/10/18 05/11/18 05/12/18 05:59 05:59 05:59 Intake Total 625 Balance 625 MSE: Affect: Constricted Mood: "OK" TP: Goal-directed TC: Denies SI/HI, MOC and ex- report some paranoid thoughts still present (patient consistently denies this) Insight/Judgment: Poor - Time Spent With Patient Time Spent With Patient: 15" - Pending Discharge Pending Discharge Within 24 Hours: No Pending Discharge Within 48 Hours: No ICD10 Worksheet Patient Problems: Problems Problem Status Onset Bipolar disorder Acute Psychotic disorder Acute Schizoaffective disorder Acute
[2018-05-12] MEDS ORDERED: THEOPHYLLINE ORAL SOLUTION 80 MG/15 ML UDCUP PO ONE (04:00)
[2018-05-12] MEDS ORDERED: ONDANSETRON DISINTEGRATING 4 MG TAB ONE (07:55)
[2018-05-12] MEDS ORDERED: CITRIC ACID/SODIUM CITRATE 30 ML UDCUP ONE (07:55)
[2018-05-12] MEDS: CITRIC ACID/SODIUM CITRATE 30 ML UDCUP PO PRN ×2 (08:00→10:22)
[2018-05-12] MEDS: ONDANSETRON DISINTEGRATING 4 MG TAB PO PRN ×2 (08:00→10:22)
[2018-05-12] MEDS ORDERED: MIDAZOLAM 2 MG/2 ML VIAL ONE ×2 (08:08→08:09)
[2018-05-12] MEDS ORDERED: fentaNYL 100 MCG/2 ML INJ ONE (08:08)
[2018-05-12] MEDS ORDERED: ETOMIDATE 20 MG/10 ML VIAL ONE (08:08)
[2018-05-12] MEDS ORDERED: SUCCINYLCHOLINE CHLORIDE 200 MG/10 ML VIAL ONE (08:10)
[2018-05-12] MEDS: NS 1,000 ML IV PRN ×2 (08:10→10:22)
[2018-05-12] MEDS ORDERED: LORazepam 2 MG/ML INJ ONE (08:19)
--- NOTE | 2018-05-12 08:26 | PDECTPN ---
ECT Progress Note Patient Problems: Problems Problem Status Onset Code Bipolar disorder Acute F31.9 Psychotic disorder Acute F29 Schizoaffective disorder Acute F25.9 Date: 05/12/18 ECT provider: Adan Whelan Anesthesia: Marcelina Thrasher Stimulus dose (%): 100 Pulse width: 0.5 ECT EMG (sec): 17 ECT EEG (sec): 30 ECT treatment type: bilateral QIDS-SR Total Score: 20 QIDS-SR Question #12 Score: 0 MMSE Total Score (Max = 21): 20 Next ECT date: 05/14/18 Next ECT time: 07:30 Home medications: Medication Instructions Recorded Levothyroxine [Synthroid 50 mcg 50 mcg PO DAILY06 #30 tab 12/06/17 (*)] LORazepam [Ativan (*)] 1 mg PO BID@01/01/18 [place] Carbonate ER [Eskalith Cr 450 mg PO BID 01/01/18 450 mg (*)] buPROPion XL [Wellbutrin Xl] 300 mg PO DAILY 01/20/18 Memantine HCl [Namenda 5 mg (*)] 5 mg PO BID 03/19/18 Medication review: completed Current treatment plan: acute phase Treatment plan frequency: 3 times per week ECT narrative: Pt presents for continued acute course ECT, chart reviewed. Progressive improvement continues. Smiling and joking today. Spontaneous interactions. I received a forwarded email from pt's mother that was originally from his detailing her concerns about some ongoing paranoid thoughts. Well-groomed, coop, interactive. Speech is spontaneous, fluent. Affect is bright, smiles several times. Mood is "OK." TP is linear for longer periods. TC reveals no overt psychosis. No mention of paranoia. Underwent bilateral ECT without complication. Continued improvement. CCM.
[2018-05-12] MEDS: buPROPion XL 150 MG TAB PO SCH (12:48)
[2018-05-12] MEDS: LEVOTHYROXINE 50 MCG TAB PO SCH (12:48)
[2018-05-12] MEDS: MEMANTINE HCL 5 MG TAB PO SCH ×2 (12:48→21:34)
--- NOTE | 2018-05-12 13:18 | ASMTCMCOM ---
CM Note CM Note Notes: CC was present during family meeting with MOC and client. CC noted, that per [employer] client's insurance was good through today and would update the status tomorrow once CC finds out. Per provider, he would like for the client to discharge on Saturday after ECT (Mid-week). Went over options and planned out discharge of client. Date Signed: 05/12/2018 01:17 PM Electronically Signed By:Alhaji Valadez
[2018-05-12] MEDS: LORazepam 1 MG TAB PO SCH ×2 (16:29→21:33)
[2018-05-12] MEDS: LITHIUM CARBONATE ER 450 MG TAB PO SCH (21:32)
[2018-05-13] MEDS: buPROPion XL 150 MG TAB PO SCH (08:24)
[2018-05-13] MEDS: LORazepam 1 MG TAB PO SCH ×3 (08:24→20:41)
[2018-05-13] MEDS: LITHIUM CARBONATE ER 450 MG TAB PO SCH ×2 (08:25→20:41)
[2018-05-13] MEDS: MEMANTINE HCL 5 MG TAB PO SCH ×2 (08:25→20:41)
[2018-05-13] MEDS: LEVOTHYROXINE 50 MCG TAB PO SCH (12:20)
--- NOTE | 2018-05-13 12:30 | SOAPPROG ---
SOAP Progress Note Assessment/Plan: Assessment: Plan: 03/27/18 15:54 Mood/catatonia: Remains catatonic. Will [facility], hope to do ECT tomorrow. 04/03/18 20:58 Mood/catatonia: Improving with ECT. [facility]. 04/04/18 15:57 Mood/catatonia: Has regressed in setting of treatment refusal. Unclear what best course of action is at this point. He clearly needs ECT, but is refusing this. I could request involuntary ECT but I'm not sure how we would physically force him to comply. Will [facility] for now, continue to build therapeutic alliance. Pt will not allow visits or calls from his mother who is influencial over his thinking and behaviors. 04/07/18 16:00 Mood/catatonia: Continued behavioral regression. Unclear the basis of this, but I believe it is a combination of opposition to prolonged externalized locus of control and inability to effectively process information re: his illness and treatment. Will request involuntary ECT, monitor on meds for now. 04/08/18 17:34 Mood/catatonia: No change. Remains mute. Hope to see change with 's visit and reinvestment in ECT. Will make NPO overnight in case he agrees to proceed. 04/10/18 10:55 Mood/catatonia: Improved with ECT. Pt remains agreeable to proceed at this time. WIll [facility]. 04/11/18 16:25 Mood/catatonia: Refused ECT again. It is unclear how to consistently motivate pt. Will apply for involuntary treatment to at least have that as a persuasion. 04/15/18 17:09 Mood/catatonia: Remains catatonic. [facility]. 04/17/18 16:06 Mood/catatonia: Improved with ECT. [facility]. 04/22/18 19:23 Mood/catatonia: Continued improvement. Remains severely ill. [facility]. 04/24/18 15:41 Mood/catatonia: Continued gradual improvement. [facility]. 04/29/18 21:05 Mood/catatonia: Continued improvement. Remains gravely disabled and likely psychotic. Previous trials of atypical antipsychotic medications have severely worsened conditiion. Due to marked improvement iwth ECT with [facility] for now. 05/01/18 21:07 Mood/catatonia: Much improved overall. [facility]. 05/13/18 12:28 Mood/catatonia: Doing well. [facility]. Will treat tomorrow with likely d/c soon after. Subjective: Pt seen, discussed with staff. Up and about the unit. Spontaneous and interactive. States he is ready to go home. Compliant with therapies and meds. Eating and sleeping well. Hygiene remains marginal. Objective: Vital Signs Temp Pulse Resp BP Pulse Ox 36.3 C 89 16 123/67 H 97 05/13/18 06:00 05/13/18 06:00 05/13/18 06:00 05/13/18 06:00 05/13/18 06:00 05/12/18 05/13/18 05/14/18 05:59 05:59 05:59 Intake Total 1100 Balance 1100 MSE: Calm, coop, interactive. Affect is well-modulated, approp. Mood is "good." TP remains abbreviated, though linear. TC reveals no mention of delusions. - Time Spent With Patient Time Spent With Patient: 15" ICD10 Worksheet Patient Problems: Problems Problem Status Onset Bipolar disorder Acute Psychotic disorder Acute Schizoaffective disorder Acute
[2018-05-14] MEDS ORDERED: THEOPHYLLINE ORAL SOLUTION 80 MG/15 ML UDCUP PO ONE (06:00)
[2018-05-14] MEDS ORDERED: CITRIC ACID/SODIUM CITRATE 30 ML UDCUP PO PRN (06:46)
[2018-05-14] MEDS ORDERED: ONDANSETRON DISINTEGRATING 4 MG TAB PO PRN (06:46)
[2018-05-14] MEDS ORDERED: CITRIC ACID/SODIUM CITRATE 30 ML UDCUP ONE (06:46)
[2018-05-14] MEDS ORDERED: NS 1,000 ML IV PRN (06:46)
[2018-05-14] MEDS ORDERED: ONDANSETRON DISINTEGRATING 4 MG TAB ONE (06:46)
[2018-05-14] MEDS ORDERED: MIDAZOLAM 2 MG/2 ML VIAL ONE (07:04)
[2018-05-14] MEDS ORDERED: fentaNYL 100 MCG/2 ML INJ ONE (07:04)
[2018-05-14] MEDS ORDERED: ONDANSETRON 4 MG/2 ML VIAL ONE (07:05)
[2018-05-14] MEDS ORDERED: ETOMIDATE 20 MG/10 ML VIAL ONE (07:05)
[2018-05-14] MEDS ORDERED: LORazepam 2 MG/ML INJ ONE (07:10)
--- NOTE | 2018-05-14 07:12 | PDECTPN ---
ECT Progress Note Patient Problems: Problems Problem Status Onset Code Bipolar disorder Acute F31.9 Psychotic disorder Acute F29 Schizoaffective disorder Acute F25.9 Date: 05/14/18 ECT provider: Adan Whelan Anesthesia: Marcelina Thrasher Stimulus dose (%): 100 Pulse width: 0.5 ECT EMG (sec): 16 ECT EEG (sec): 18 ECT treatment type: bilateral QIDS-SR Total Score: 3 QIDS-SR Question #12 Score: 0 MMSE Total Score (Max = 21): 21 Next ECT date: 05/19/18 Next ECT time: 08:00 Home medications: Medication Instructions Recorded Levothyroxine [Synthroid 50 mcg 50 mcg PO DAILY06 #30 tab 12/06/17 (*)] LORazepam [Ativan (*)] 1 mg PO BID@01/01/18 [place] Carbonate ER [Eskalith Cr 450 mg PO BID 01/01/18 450 mg (*)] buPROPion XL [Wellbutrin Xl] 300 mg PO DAILY 01/20/18 Memantine HCl [Namenda 5 mg (*)] 5 mg PO BID 03/19/18 Medication review: completed Current treatment plan: acute phase Treatment plan frequency: 3 times per week ECT narrative: Pt presents for continued acute course ECT. Doing generally well. Remains cooperative and interactive. Catatonia is nearly resolved. Well-groomed, coop, interactive. Speech is spontaneous, fluent. Affect is bright, better modulated. Mood is "OK." TP is linear for longer periods. TC reveals no overt psychosis. No mention of delusional processes. Underwent bilateral ECT without complication. Continued improvement. CCM.
--- NOTE | 2018-05-14 07:19 | PDANEPAE ---
ECT Pre Anesthetic Evaluation Allergies/Adverse Reactions: No Known Allergies Allergy (Unverified 10/31/17 15:09) Patient ID confirmed: Yes H&P reviewed: Yes Pre-anesthetic history reviewed: Yes Heart: regular rate and rhythym, no murmur, rub, or gallop Lungs: no respiratory distress, no rales or rhonchi Mallampati Score: Class 1 ASA Status: II Home Medications: Medication Instructions Recorded Levothyroxine [Synthroid 50 mcg 50 mcg PO DAILY06 #30 tab 12/06/17 (*)] LORazepam [Ativan (*)] 1 mg PO BID@01/01/18 [place] Carbonate ER [Eskalith Cr 450 mg PO BID 01/01/18 450 mg (*)] buPROPion XL [Wellbutrin Xl] 300 mg PO DAILY 01/20/18 Memantine HCl [Namenda 5 mg (*)] 5 mg PO BID 03/19/18 Medication review: completed Patient interviewed: Yes Patient examined: Yes Anesthetic plan discussed with patient: Yes Anesthetic risks discussed with patient: Yes ECT Pre-Anesthetic History - Height & Weight Height: 190.5 cm Weight: 85.304 kg BMI: 23.51 - Anesthesia History Hx Anesthesia Complications (with details): none Family Hx Anesthesia Complications: none - Medications In the Past 6 Months the Patient Has Taken: Thyroid Medication, Tranquilizers - Tobacco/Alcohol/Drug Use Smoking Status: Never smoked Hx Drug/Substance Abuse: No Alcohol Use: No - Prior Surgeries/Hospitalizations Prior Surgeries: none Prior Medical Hospitalizations: none - Pulmonary History ECT Hx Asthma: No Hx Abnormal Chest X-Ray: No Hx Oxygen in Use at Home: No - Cardiovascular History Hx Hypertension: No Currently Uses Hypertension Medication: No Hx Arrhythmias: No Hx Palpitations: No Hx Chest Pain: No Hx Coronary Artery / Peripheral Vascular Disease: No Hx Blood Clot: No - Neurologic History Hx Cerebrovascular Accident: No Hx CT Scan Or MRI Of The Brain: No Hx Epilepsy, Convulsions, Seizures, Or Blackouts: No Hx Frequent Or Severe Headaches: No Hx Numbness: No Hx Neurologic Disorder: No - Dental History Current Dental Issues: None - Endocrine History Hx Diabetes: No Hx Thyroid Problems: Yes Endocrine History Comment: takes Levothyroxine - Renal/Urologic History Hx Renal Disorders: No Hx Urinary Tract Problems: No - Liver History Hx Hepatic Disorders: No - Cancer History Hx Cancer: No - Hematology History Hx Unexplained Bleeding Of Any Type: No Hx Ease Of Bruising: No Hx Anemia: No - Gastrointestinal History Hx Gastroesophogeal Reflux Disease: No Hx Ulcers: No Hx Hiatal Hernia: No Hx Difficulty Swallowing: No - Musculoskeletal Hisory Hx Chronic Pain: No Hx Arthritis: No - Opthalmic History Hx Glaucoma: No Visual Assistive Devices: None Hx Opthalmic Disorders: No - Other Health History Physical Disabililty: No Recent Cough, Cold, or Fever: No Significant Weight Loss In The Last 4 Months: No Possible the Patient Might be : No
--- NOTE | 2018-05-14 07:27 | POSTANESTH ---
Post Anesthetic Evaluation Cardiovascular Status: Normal, Stable, Similar to Pre-Op Cond, Tx Over/Under Hydration Respiratory Status: Normal, Stable Level of Consciousness/Mental Status: Unconscious Pain Control: Adequate, Prn Tx Ordered Nausea/Vomiting Control: Adequate, Prn Tx Ordered Complications Possibly Related to Anesthesia: None Noted
[2018-05-14] MEDS: LORazepam 1 MG TAB PO SCH (09:21)
[2018-05-14] MEDS: LITHIUM CARBONATE ER 450 MG TAB PO SCH (09:22)
[2018-05-14] MEDS: MEMANTINE HCL 5 MG TAB PO SCH (09:22)
[2018-05-14] MEDS: buPROPion XL 150 MG TAB PO SCH (09:22)
[2018-05-14] MEDS: LEVOTHYROXINE 50 MCG TAB PO SCH (09:22)
[2018-05-14 10:46] VITALS: BP 129/80
--- NOTE | 2018-05-14 11:23 | ASMTBHDC ---
Notes Note: Notes: CC confirmed client's discharge plan: Follow up with: Dr. Ge Whelan ([facility]) [address], [address] [place] [address] Next Appt: SaturdayMay 19 (05/19/18) at 7:45am Additional Resources: Dr. Corey Levy [address] [address] Date Signed: 05/14/2018 11:22 AM Electronically Signed By:Alhaji Valadez
[2018-05-16] MEDS ORDERED: THEOPHYLLINE ORAL SOLUTION 80 MG/15 ML UDCUP PO ONE (04:00)
[2018-05-16] MEDS ORDERED: NS 1,000 ML IV PRN (04:00)
[2018-05-16] MEDS ORDERED: ONDANSETRON DISINTEGRATING 4 MG TAB PO PRN (04:00)
[2018-05-16] MEDS ORDERED: CITRIC ACID/SODIUM CITRATE 30 ML UDCUP PO PRN (04:00)
== END 2018-05-14 15:00 | disposition home or self-care (01) | DRG 885 ==
LOC: BBEH 22:03
PROVIDERS: ADMIT Psychiatry & Neurology Psychiatry; ATTEND Psychiatry & Neurology Psychiatry
PROC: GZB2ZZZ Electroconvulsive Therapy, Bilateral-Single Seizure (ICD-10-PCS; principal; 2018-03-28)
DX: F31.64 Bipolar disorder, current episode mixed, severe, with psychotic features (principal); I44.0 Atrioventricular block, first degree; E03.9 Hypothyroidism, unspecified
CPT/HCPCS: G0008; J0330; J1885; J2060; J2250; J2405; J3010